=== PATIENT | female | born 1945 | race African-American/Black ===

== ENCOUNTER 2016-11-22 05:28 | Emergency (ER) | payer OTHER ==
[2016-11-22 05:53] VITALS: BMI 29.2
[2016-11-22 06:00] LABS: BASOPHIL 0.6 % (0-2.0); EOSINOPHIL 1.9 % (0-4.5); MCH 23.9 pg (25.7-33.7); MEAN CELL VOLUME 74.6 fl (80-96); MEAN PLT VOLUME 8.2 fl (7.5-11.1); NEUTROPHILS 70.9 % (42.8-82.8); PLATELET COUNT 246 K/MM3 (134-434); RDW 16.3 % (11.6-15.6); WHITE BLOOD COUNT 7.3 K/mm3 (4.0-10.0)
[2016-11-22 06:11] LABS: INR 1.63 (0.82-1.09); PROTHROMBIN TIME (PATIENT) 18.1 SEC (9.98-11.88)
[2016-11-22 06:25] LABS: ALBUMIN 3.4 g/dl (3.4-5.0); ANION GAP 7 (8-16); BILIRUBIN,TOTAL 0.4 mg/dL (0.2-1.0); CALCIUM 8.8 mg/dL (8.5-10.1); CO2 32 mmol/L (21-32); CREATININE 1.1 mg/dL (0.55-1.02); GLUCOSE,RANDOM 134 mg/dL (74-106); SGOT/AST 14 U/L (15-37); SGPT/ALT 15 U/L (12-78); TOT PROT 7.5 g/dl (6.4-8.2)
[2016-11-22 06:27] LABS: ALK PHOS 124 U/L (45-117); TROPONIN I < 0.02 ng/ml (0.00-0.05)
--- NOTE | 2016-11-22 08:22 | PDOC ---
History of Present Illness - General History Source: Patient Exam Limitations: No Limitations - History of Present Illness Initial Comments: 11/22/16 08:29 The patient is a 71 year old female, with a significant past medical history of Asthma, CVA (minimal R sided weakness), partial seizures, Atrial Fibrillation ( on Coumadin), CAD, HTN, HLD, Diabetes and Hypothyroidism, who presents to the emergency department BIB EMS with nonradiating, mid sternal chest pain earlier this morning. The patient states her chest pain (1/10 in severity) was associated with chest palpitations and slight nausea which lasted for a half hour until EMS arrived. As per EMS, the patient was given 324 mg of Aspirin and one Nitro on field with relief.The patient is currently asymptomatic in the ED. She denies headache or dizziness. She denies fever, chills, vomit, diarrhea or constipation. She denies dysuria, frequency, urgency or hematuria. Allergies: NKA Past surgical history: Cholecystectomy, appendectomy, tonsilectomy Social history: None PCP: Dr. Torres Negative Restorer: Dr. Higuera <Mily Pulliam - Last Filed: 11/22/16 09:14> <Dianna Elena - Last Filed: 11/22/16 12:14> - General Chief Complaint: Chest Pain Stated Complaint: CHEST PAIN Past History <Mily Pulliam - Last Filed: 11/22/16 09:14> - Past Medical History Anemia: Yes Asthma: Yes Cancer: No Cardiac Disorders: Yes (arrhythmia,cardiomegaly.) CVA: Yes COPD: No CHF: No Dementia: No Diabetes: Yes GI Disorders: No Disorders: No HTN: Yes Hypercholesterolemia: No Liver Disease: No Seizures: Yes Thyroid Disease: Yes - Surgical History Abdominal Surgery: No Appendectomy: Yes Cardiac Surgery: No Cholecystectomy: Yes Lung Surgery: No Neurologic Surgery: No Orthopedic Surgery: Yes (BACK SURGERY) - Immunization History Immunization Up to Date: Yes - Psycho/Social/Smoking Cessation Hx Anxiety: No Suicidal Ideation: No Smoking History: Never smoked Have you smoked in the past 12 months: No Information on smoking cessation initiated: No Hx Alcohol Use: No Drug/Substance Use Hx: No Substance Use Type: None Hx Substance Use Treatment: No <Dianna Elena - Last Filed: 11/22/16 12:14> - Past Medical History Allergies/Adverse Reactions: Allergies Allergy/AdvReac Type Severity Reaction Status Date / Time No Known Allergies Allergy Verified 11/22/16 05:50 Home Medications: Ambulatory Orders Isosorbide Mononitrate 60 mg PO DAILY 10/21/15 Omeprazole [Prilosec (RX)] 40 mg PO DAILY 10/21/15 Warfarin Sodium [Coumadin] 8 mg PO 2000 10/21/15 Amlodipine Besylate [Norvasc -] 5 mg PO DAILY tablet 10/23/15 Atorvastatin Ca [Lipitor] 20 mg PO HS tablet 10/23/15 Duloxetine HCl [Cymbalta -] 60 mg PO DAILY capsule. 10/23/15 Losartan Potassium [Cozaar -] 100 mg PO DAILY tablet 10/23/15 Lacosamide [Vimpat] 200 mg PO DAILY 02/07/16 Metformin HCl [Glucophage -] 500 mg PO BID 02/07/16 Metoprolol Tartrate [Lopressor -] 50 mg PO BID 02/07/16 Acetaminophen [Tylenol .Regular Strength -] 650 mg PO Q4H PRN #0 tablet Levetiracetam [Keppra -] 250 mg PO BID #60 tablet 02/11/16 Levothyroxine [Synthroid -] 50 mcg PO DAILY@0700 tablet 02/11/16 Magnesium Oxide [Mag-Ox -] 400 mg PO BID #60 tablet 02/11/16 Review of Systems - Review of Systems Able to Perform ROS?: Yes Comments:: 11/22/16 08:44 Constitutional - Pt denies Fever, Chills, weakness, HEENT: Denies vision changes, sore throat RESPIRATORY: Denies cough, sob, hemoptysis CARDIAC: + chest pain. Palpitations. Denies light headedness, leg swelling ABD/GI: Denies abd pain, nausea, vomiting, blood per rectum, melena, diarrhea : Denies dysuria, frequency, discharge MUSCULOSKELETAL - Denies back pain, joint swelling SKIN - Denies bruising, erythema, rash NEUROLOGICAL: Denies headache, numbness, focal weakness, tingling, ataxia, weakness HEMATOLOGIC: Denies anemia, easy bruising, easy bleeding <Mily Pulliam - Last Filed: 11/22/16 09:14> *Physical Exam - Vital Signs Last Vital Signs Temp Pulse Resp BP Pulse Ox 98.2 F 85 16 138/86 99 11/22/16 07:40 11/22/16 07:40 11/22/16 07:40 11/22/16 07:40 11/22/16 07:40 - Physical Exam Comments: 11/22/16 08:44 GENERAL: The patient is awake, alert, and fully oriented, Nontoxic - in no acute distress. HEAD: Normocephalic, atraumatic. EYES: Extraocular movements intact, sclera anicteric, conjunctiva clear. ENT: Normal voice, moist mucous membranes. NECK: Normal range of motion, supple without lymphadenopathy, JVD, or masses. LUNGS: Breath sounds equal, clear to auscultation bilaterally. No wheezes, no crackles, no rales. HEART: Regular rate and rhythm, normal S1 and S2 without murmur, rub or gallop. ABDOMEN: Soft, nontender, normoactive bowel sounds. No guarding, no rebound. No masses. EXTREMITIES: Normal range of motion, no edema. No clubbing or cyanosis. No cords , erythema, or tenderness. NEUROLOGICAL: Fully Oriented, Alert, Normal Mood/Affect, Motor Strength 5/5. No facial asymmetry, Normal speech. SKIN: Warm, Dry, normal turgor, no rashes or lesions noted. <Mily Pulliam - Last Filed: 11/22/16 09:14> - Vital Signs Last Vital Signs Temp Pulse Resp BP Pulse Ox 98.2 F 85 16 138/86 99 11/22/16 07:40 11/22/16 07:40 11/22/16 07:40 11/22/16 07:40 11/22/16 07:40 <Dianna Elena - Last Filed: 11/22/16 12:14> ED Treatment Course - LABORATORY CBC & Chemistry Diagram: 11/22/16 05:46 11/22/16 05:46 - ADDITIONAL ORDERS Additional order review: Laboratory Results 11/22/16 11/22/16 05:46 05:46 INR 1.63 H D Sodium 140 Potassium 3.7 Chloride 101 Carbon Dioxide 32 Anion Gap 7 L BUN 25 H Creatinine 1.1 H Creat Clearance w eGFR 48.69 Random Glucose 134 H Calcium 8.8 Total Bilirubin 0.4 AST 14 L ALT 15 Alkaline Phosphatase 124 H Creatine Kinase 81 Troponin I < 0.02 Total Protein 7.5 Albumin 3.4 11/22/16 05:46 RBC 4.14 MCV 74.6 L MCHC 32.0 RDW 16.3 H MPV 8.2 Neutrophils % 70.9 Lymphocytes % 20.1 D Monocytes % 6.5 Eosinophils % 1.9 Basophils % 0.6 <Mily Pulliam - Last Filed: 11/22/16 09:14> - LABORATORY CBC & Chemistry Diagram: 11/22/16 05:46 11/22/16 05:46 - ADDITIONAL ORDERS Additional order review: Laboratory Results 11/22/16 11/22/16 05:46 05:46 INR 1.63 H D Sodium 140 Potassium 3.7 Chloride 101 Carbon Dioxide 32 Anion Gap 7 L BUN 25 H Creatinine 1.1 H Creat Clearance w eGFR 48.69 Random Glucose 134 H Calcium 8.8 Total Bilirubin 0.4 AST 14 L ALT 15 Alkaline Phosphatase 124 H Creatine Kinase 81 Troponin I < 0.02 Total Protein 7.5 Albumin 3.4 11/22/16 05:46 RBC 4.14 MCV 74.6 L MCHC 32.0 RDW 16.3 H MPV 8.2 Neutrophils % 70.9 Lymphocytes % 20.1 D Monocytes % 6.5 Eosinophils % 1.9 Basophils % 0.6 <Dianna Elena - Last Filed: 11/22/16 12:14> Medical Decision Making - Medical Decision Making Dr. Higuera was paged via phone answering service at 09:00 Dr. Galvez is turf sales person and awaiting call back. 11/22/16 09:14- Dr. Galvez responded to the page and the patient's case was discussed. <Mily Pulliam - Last Filed: 11/22/16 09:14> - Medical Decision Making 11/22/16 12:11 I, Dr. Dianna Elena, attest that the scribes documentation that appears above has been prepared under my direction and personally reviewed by me. I confirmed that the note above accurately reflects all work, treatment, procedures, and medical decision-making performed by me. Pt with nl exam in ED, has no complaints of chest pain or palpations. Pt with two sets of negative cardiac enzymes in ED, case discussed with cardiology Dr Olvera, pt is stable for dc home with out pt f/u with pcp and with cardiology. Pt' s INR is sub therapeutic, will need counmadin dose adjusted. Pt took 4mg last night but is scheduled to take 6mg tonight and tomorrow and then f/u with pcp or with cardiology on thursday for further instructions. Pt agrees with this dc plan <Dianna Elena - Last Filed: 11/22/16 12:14> *DC/Admit/Observation/Transfer - Attestations Scribe Attestion: 11/22/16 08:44 Documentation prepared by Mily Pulliam, acting as medical apparatus model maker for Dianna Elena MD <Mily Pulliam - Last Filed: 11/22/16 09:14> - Discharge Dispostion Admit: No <Dianna Elena - Last Filed: 11/22/16 12:14> Diagnosis at time of Disposition: CAD (coronary artery disease) - Discharge Dispostion Disposition: HOME Condition at time of disposition: Stable - Referrals Referrals: Angeles Torres [Primary Care Provider] - - Patient Instructions Printed Discharge Instructions: DI for Chest Pain Additional Instructions: return to ed for chest pain associated with nausea and vomitting, trouble breathing, dizziness or as needed. Pt to f/u with PCP and with cardiology in next 48 hrs to have coumadin adjusted and to be reevaluated.
[2016-11-22 10:21] LABS: TROPONIN I < 0.02 ng/ml (0.00-0.05)
[2016-11-22 11:06] VITALS: PULSE 80
[2016-11-22 12:17] VITALS: BP 128/77; TEMP 98
--- NOTE | 2016-11-22 13:06 | PDOC ---
*Physical Exam - Vital Signs Last Vital Signs Temp Pulse Resp BP Pulse Ox 98.0 F 80 20 128/77 98 11/22/16 12:16 11/22/16 12:16 11/22/16 12:16 11/22/16 12:16 11/22/16 12:16 ED Treatment Course - LABORATORY CBC & Chemistry Diagram: 11/22/16 05:46 11/22/16 05:46 - ADDITIONAL ORDERS Additional order review: Laboratory Results 11/22/16 11/22/16 11/22/16 09:04 05:46 05:46 INR 1.63 H D Sodium 140 Potassium 3.7 Chloride 101 Carbon Dioxide 32 Anion Gap 7 L BUN 25 H Creatinine 1.1 H Creat Clearance w eGFR 48.69 Random Glucose 134 H Calcium 8.8 Total Bilirubin 0.4 AST 14 L ALT 15 Alkaline Phosphatase 124 H Creatine Kinase 96 81 Troponin I < 0.02 < 0.02 Total Protein 7.5 Albumin 3.4 TSH 1.70 D 11/22/16 05:46 RBC 4.14 MCV 74.6 L MCHC 32.0 RDW 16.3 H MPV 8.2 Neutrophils % 70.9 Lymphocytes % 20.1 D Monocytes % 6.5 Eosinophils % 1.9 Basophils % 0.6 Medical Decision Making - Medical Decision Making 11/22/16 13:05 ekg is afib at 84 nl axis poor r wave progression. *DC/Admit/Observation/Transfer Diagnosis at time of Disposition: CAD (coronary artery disease) - Discharge Dispostion Disposition: HOME Condition at time of disposition: Stable - Referrals Referrals: Angeles Torres [Primary Care Provider] - - Patient Instructions Printed Discharge Instructions: DI for Chest Pain Additional Instructions: return to ed for chest pain associated with nausea and vomitting, trouble breathing, dizziness or as needed. Pt to f/u with PCP and with cardiology in next 48 hrs to have coumadin adjusted and to be reevaluated. - Post Discharge Activity
--- NOTE | 2016-11-22 21:03 | EKG ---
Test Reason : Blood Pressure : / mmHG Vent. Rate : 084 BPM Atrial Rate : 394 BPM P-R Int : 000 ms QRS Dur : 096 ms QT Int : 378 ms P-R-T Axes : 000 -14 059 degrees QTc Int : 446 ms ATRIAL FIBRILLATION POSSIBLE ANTEROSEPTAL INFARCT (CITED ON OR BEFORE 22-NOV-2016) ABNORMAL ECG WHEN COMPARED WITH ECG OF 08-FEB-2016 04:19, QUESTIONABLE CHANGE IN INITIAL FORCES OF ANTERIOR LEADS NONSPECIFIC T WAVE ABNORMALITY, IMPROVED IN INFERIOR LEADS Confirmed by SVETLANA TOUSSAINT MD ([id number]) on 11/22/2016 9:03:09 PM Referred By: Confirmed By:SVETLANA TOUSSAINT MD
== END 2016-11-22 12:17 | disposition home or self-care (01) ==
LOC: JER 05:28
DX: I25.10 Atherosclerotic heart disease of native coronary artery without angina pectoris (principal); I10 Essential (primary) hypertension; I48.91 Unspecified atrial fibrillation; Z79.01 Long term (current) use of anticoagulants; E11.9 Type 2 diabetes mellitus without complications; Z79.84 Long term (current) use of oral hypoglycemic drugs; E78.00 Pure hypercholesterolemia, unspecified; E78.5 Hyperlipidemia, unspecified; E03.9 Hypothyroidism, unspecified; G40.89 Other seizures; J45.909 Unspecified asthma, uncomplicated; Z86.73 Personal history of transient ischemic attack (TIA), and cerebral infarction without residual deficits
CPT/HCPCS: 36415; 71010-TC; 80053; 82550; 84443; 84484; 85025; 85610; 93005; 93010; 99283-25

== ENCOUNTER 2016-12-11 09:32 | Inpatient (IN) | payer OTHER ==
[2016-12-11 09:46] VITALS: BMI 31.7
--- NOTE | 2016-12-11 10:50 | PDOC ---
History of Present Illness - General Chief Complaint: Chest Pain Stated Complaint: Palpitations Time Seen by Provider: 12/11/16 09:43 History Source: Patient Exam Limitations: No Limitations - History of Present Illness Initial Comments: 12/11/16 10:19 71-year-old female with history of A. fib under the care of Dr. higuera presents to the ED with complaints of intermittent palpitations for the past week and a half. Patient states last night felt that around 3 AM for continued for about an hour so this morning decided come to the ER. Patient states was seen by her inside sales last week who stated she should have a Holter placed but did not have the opportunity as of yet. Patient denies chest pain, shortness of breath, dizziness, nausea, recent change in her Lopressor or her Coumadin. Patient states has been the same medication and denies any recent illness, recent antibiotic use, increased lower extremity edema, or dizziness, or headache. Presenting Symptoms: Other (alpitations) Timing/Duration: reports: intermittent Severity/Quality: reports: mild Prior Chest Pain/Cardiac Workup: reports: Echocardiography, Stress Test Aspirin Received prior to arrival (Core Measure): Yes: no aspirin today Associated Symptoms: Yes: Palpitations Past History - Past Medical History Allergies/Adverse Reactions: Allergies Allergy/AdvReac Type Severity Reaction Status Date / Time No Known Allergies Allergy Verified 12/11/16 09:46 Home Medications: Ambulatory Orders Amlodipine Besylate [Norvasc -] 5 mg PO DAILY 12/11/16 Atorvastatin Ca [Lipitor] 20 mg PO HS 12/11/16 Duloxetine HCl 60 mg PO DAILY 12/11/16 Isosorbide Mononitrate [Isosorbide Mononitrate ER] 60 mg PO DAILY 12/11/16 Lacosamide [Vimpat -] 100 mg PO DAILY 12/11/16 Levetiracetam 750 mg PO HS 12/11/16 Levothyroxine [Synthroid -] 50 mcg PO DAILY 12/11/16 Losartan Potassium 50 mg PO DAILY 12/11/16 Magnesium Oxide 400 mg PO HS 12/11/16 Metformin HCl 500 mg PO BID 12/11/16 Metoprolol Succinate [Toprol Xl] 50 mg PO HS 12/11/16 Omeprazole 40 mg PO DAILY 12/11/16 Sitagliptin Phosphate [Januvia] 25 mg PO HS 12/11/16 Warfarin Na [Coumadin] 4 mg PO DAILY 12/11/16 Warfarin Na [Coumadin] 6 mg PO DAILY 12/11/16 Anemia: Yes Asthma: Yes Cancer: No Cardiac Disorders: Yes (arrhythmia,cardiomegaly.) CVA: Yes COPD: No CHF: No Dementia: No Diabetes: Yes GI Disorders: No Disorders: No HTN: Yes Hypercholesterolemia: No Liver Disease: No Seizures: Yes Thyroid Disease: Yes - Surgical History Abdominal Surgery: No Appendectomy: Yes Cardiac Surgery: No Cholecystectomy: Yes Lung Surgery: No Neurologic Surgery: No Orthopedic Surgery: Yes (BACK SURGERY) - Immunization History Immunization Up to Date: Yes - Psycho/Social/Smoking Cessation Hx Anxiety: No Suicidal Ideation: No Smoking History: Never smoked Have you smoked in the past 12 months: No Information on smoking cessation initiated: No Hx Alcohol Use: No Drug/Substance Use Hx: No Substance Use Type: None Hx Substance Use Treatment: No Patient Lives Alone: No Lives with/in: spouse/SO Cardiac Specific PMH - Complaint Specific PMHX Pacemaker: No Review of Systems - Review of Systems Able to Perform ROS?: Yes Constitutional: No: Symptoms Reported HEENTM: No: Symptoms Reported Respiratory: No: Symptoms reported Cardiac (ROS): Yes: Palpitations ABD/GI: No: Symptoms Reported : No: Symptoms Reported Musculoskeletal: No: Symptoms Reported Integumentary: No: Symptoms Reported *Physical Exam - Vital Signs Last Vital Signs Temp Pulse Resp BP Pulse Ox 99 F 80 18 142/85 99 12/11/16 09:37 12/11/16 11:09 12/11/16 09:37 12/11/16 09:37 12/11/16 11:09 - Physical Exam General Appearance: Yes: Nourished, Appropriately Dressed. No: Apparent Distress HEENT: negative: Pale Conjunctivae Neck: positive: Supple Respiratory/Chest: positive: Lungs Clear, Normal Breath Sounds. negative: Respiratory Distress, Accessory Muscle Use Cardiovascular: positive: Regular Rhythm, Regular Rate. negative: Murmur Vascular Pulses: Dorsalis-Pedis (R): 2+, Doralis-Pedis (L): 2+ Gastrointestinal/Abdominal: positive: Soft. negative: Tenderness Extremity: positive: Pedal Edema (1+ pitting) Integumentary: positive: Normal Color, Warm, Moist Neurologic: positive: Motor Strength 5/5 (ambulatory) Heart Score/ECG Review - History History: Slightly suspicious - Electrocardiogram EKG: Normal - Age Age: >/= 65 - Risk Factors Risk Factors Heart Score: Yes Hx Hypertension Based on the list above the patient has:: 1-2 risk factors - Troponin Troponin: </= normal limit - Score Heart Score - Total: 3 - ECG Intrepretation Rhythm: Regular Rhythm (rate 80. No St elevation or depression. A. fib) - ECG Impressions Normal ECG: Yes ED Treatment Course - LABORATORY CBC & Chemistry Diagram: 12/11/16 10:30 12/11/16 10:30 - ADDITIONAL ORDERS Additional order review: Laboratory Results 12/11/16 12/11/16 10:30 10:30 INR 2.46 H D Sodium 138 Potassium 3.7 Chloride 97 L Carbon Dioxide 34 H Anion Gap 7 L BUN 20 H Creatinine 0.9 Creat Clearance w eGFR > 60 Random Glucose 176 H D Calcium 9.3 Total Bilirubin 0.4 AST 14 L ALT 16 Alkaline Phosphatase 113 Creatine Kinase 78 Troponin I < 0.02 Total Protein 7.5 Albumin 3.4 12/11/16 10:30 RBC 4.22 MCV 74.7 L MCHC 31.3 L RDW 16.1 H MPV 8.0 Neutrophils % 75.4 Lymphocytes % 17.4 Monocytes % 5.5 Eosinophils % 1.2 Basophils % 0.5 - RADIOLOGY Radiology Studies Ordered: Category Date Time Status CHEST X-RAY PORTABLE* [RAD] Stat Radiology 12/11/16 10:16 Completed Medical Decision Making - Medical Decision Making 12/11/16 10:32 Patient with history of A. fib presents to the ED with complaints of palpitations intimately for the past week and a half which she saw her inside sales for and is due to have a Holter. Patient denies chest pain, dizziness, shortness of breath, or nausea. 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 fib at a rate of 72-90. Patient placed for cardiac workup, PT INR levels since she is on Coumadin, and will consult Dr. Higuera her inside sales shortly. 12/11/16 12:00 Chest x-ray negative. Case discussed with Dr. Jones and accepted to service. Discussed with Dr. Higuera, patient's inside sales and recommended to admit patient to telemetry and keep patient on pulse oximetry as he believes this may be related to sleep apnea versus cardiac etiology. 12/11/16 13:06 Laboratory Tests 12/11/16 12/11/16 12/11/16 10:30 10:30 10:30 WBC 7.3 Hgb 9.9 L Hct 31.5 L Neutrophils % 75.4 INR 2.46 H D Sodium 138 Potassium 3.7 Chloride 97 L Carbon Dioxide 34 H Anion Gap 7 L BUN 20 H Creatinine 0.9 Creat Clearance w eGFR > 60 Random Glucose 176 H D Calcium 9.3 Total Bilirubin 0.4 AST 14 L Alkaline Phosphatase 113 Troponin I < 0.02 *DC/Admit/Observation/Transfer Diagnosis at time of Disposition: Palpitations - Discharge Dispostion Admit: Yes
[2016-12-11 10:58] LABS: BASOPHIL 0.5 % (0-2.0); EOSINOPHIL 1.2 % (0-4.5); MCH 23.4 pg (25.7-33.7); MCHC 31.3 g/dl (32.0-36.0); MEAN CELL VOLUME 74.7 fl (80-96); NEUTROPHILS 75.4 % (42.8-82.8); PLATELET COUNT 239 K/MM3 (134-434); RDW 16.1 % (11.6-15.6); WHITE BLOOD COUNT 7.3 K/mm3 (4.0-10.0)
[2016-12-11 11:19] LABS: INR 2.46 (0.82-1.09); PROTHROMBIN TIME (PATIENT) 27.6 SEC (9.98-11.88)
[2016-12-11 11:20] LABS: ALBUMIN 3.4 g/dl (3.4-5.0); ANION GAP 7 (8-16); BILIRUBIN,TOTAL 0.4 mg/dL (0.2-1.0); CALCIUM 9.3 mg/dL (8.5-10.1); CO2 34 mmol/L (21-32); CREATININE 0.9 mg/dL (0.55-1.02); GLUCOSE,RANDOM 176 mg/dL (74-106); SGOT/AST 14 U/L (15-37); SGPT/ALT 16 U/L (12-78); TOT PROT 7.5 g/dl (6.4-8.2)
[2016-12-11 11:22] LABS: ALK PHOS 113 U/L (45-117); TROPONIN I < 0.02 ng/ml (0.00-0.05)
--- NOTE | 2016-12-11 11:36 | EKG ---
Test Reason : Blood Pressure : / mmHG Vent. Rate : 080 BPM Atrial Rate : 081 BPM P-R Int : 000 ms QRS Dur : 098 ms QT Int : 410 ms P-R-T Axes : 000 -14 050 degrees QTc Int : 472 ms POOR DATA QUALITY, INTERPRETATION MAY BE ADVERSELY AFFECTED ATRIAL FIBRILLATION POSSIBLE ANTEROSEPTAL INFARCT (CITED ON OR BEFORE 22-NOV-2016) ABNORMAL ECG WHEN COMPARED WITH ECG OF 22-NOV-2016 05:44, NONSPECIFIC T WAVE ABNORMALITY, WORSE IN INFERIOR LEADS Confirmed by FABIAN MACK, MAXI ([id number]) on 12/11/2016 11:36:29 AM Referred By: Confirmed By:MAXI PERALTA MD
[2016-12-11] MEDS ORDERED: PNEUMOC 13-VAL CONJ-DIP CRM/PF 0.5 ML DISP.SYRIN IM ONE (14:53)
--- NOTE | 2016-12-11 14:57 | CON.CARD ---
Consult Consult Specialty:: Cardiology Reason for Consultation:: Palpitations - History of Present Illness History of Present Illness: 71-year-old female with history of permanent A. fib on Coumadin per INR ( developed stroke on [place]), HTN, ASHD, angina pectoris, type 2 DM, hypercholesterolemia, partial complex seizures, hypothyroidism and previous history of stroke resulting in right sided weakness presented to the ED with complaints of intermittent palpitations for the past week and a half. Patient states last night felt that around 3 AM for continued for about an hour so this morning decided come to the ER. Patient denies chest pain, shortness of breath, near or true syncope, orthopnea, PND or LE edema. 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: CVA (with mild right sided residual deficits), Seizure (partial complex seizures), TIA Cardio/Vascular: Yes: AFIB, CAD, HTN, Hyperlipdemia Pulmonary: Yes: Asthma ...: No Endocrine: Yes: Diabetes Mellitus, Hypothyroidism - Past Surgical History Past Surgical History: Yes: Appendectomy - Alcohol/Substance Use Hx Alcohol Use: No - Smoking History Smoking history: Never smoked Have you smoked in the past 12 months: No Home Medications - Allergies Allergies/Adverse Reactions: Allergies Allergy/AdvReac Type Severity Reaction Status Date / Time No Known Allergies Allergy Verified 12/11/16 09:46 - Home Medications Home Medications: Ambulatory Orders Amlodipine Besylate [Norvasc -] 5 mg PO DAILY 12/11/16 Atorvastatin Ca [Lipitor] 20 mg PO HS 12/11/16 Duloxetine HCl 60 mg PO DAILY 12/11/16 Isosorbide Mononitrate [Isosorbide Mononitrate ER] 60 mg PO DAILY 12/11/16 Lacosamide [Vimpat -] 100 mg PO DAILY 12/11/16 Levetiracetam 750 mg PO HS 12/11/16 Levothyroxine [Synthroid -] 50 mcg PO DAILY 12/11/16 Losartan Potassium 50 mg PO DAILY 12/11/16 Magnesium Oxide 400 mg PO HS 12/11/16 Metformin HCl 500 mg PO BID 12/11/16 Metoprolol Succinate [Toprol Xl] 50 mg PO HS 12/11/16 Omeprazole 40 mg PO DAILY 12/11/16 Sitagliptin Phosphate [Januvia] 25 mg PO HS 12/11/16 Warfarin Na [Coumadin] 4 mg PO DAILY 12/11/16 Warfarin Na [Coumadin] 6 mg PO DAILY 12/11/16 Family Disease History - Family Disease History Family Disease History: Other: Father (Lung Ca, Was a smoker), Mother (Colon Ca) Vital Signs: Vital Signs Temperature 98.2 F 12/11/16 14:56 Pulse Rate 80 12/11/16 14:56 Respiratory Rate 20 12/11/16 14:56 Blood Pressure 131/84 12/11/16 14:56 O2 Sat by Pulse Oximetry (%) 98 12/11/16 14:37 Constitutional: Yes: No Distress, Calm Neck: Yes: Supple Respiratory: Yes: Regular, CTA Bilaterally Gastrointestinal: Yes: Normal Bowel Sounds, Soft Cardiovascular: Yes: Pulse Irregular JVD: No Carotid Bruit: No Heart Sounds: Yes: S1, S2 Edema: No - Other Data Labs, Other Data: INR, PTT INR 2.46 (0.82-1.09) H D 12/11/16 10:30 Coarse afib @ 80 Ejection Fraction %: LVEF > or = 40 % Imaging - Results Chest X-ray: Report Reviewed (NAD) Problem List - Problems (1) Heart palpitations Code(s): R00.2 - PALPITATIONS (2) ASHD (arteriosclerotic heart disease) Code(s): I25.10 - ATHSCL HEART DISEASE OF [place] CORONARY ARTERY W/O ANG PCTRS (3) Atrial fibrillation Code(s): I48.91 - UNSPECIFIED ATRIAL FIBRILLATION Qualifiers: Atrial fibrillation type: persistent Qualified Code(s): I48.1 - Persistent atrial fibrillation (4) CAD (coronary artery disease) Code(s): I25.10 - ATHSCL HEART DISEASE OF [place] CORONARY ARTERY W/O ANG PCTRS Qualifiers: Coronary Disease-Associated Artery/Lesion type: [place] artery [place] vs. transplanted heart: [place] heart Associated angina: without angina Qualified Code(s): I25.10 - Atherosclerotic heart disease of [place] coronary artery without angina pectoris (5) Cerebrovascular accident Code(s): I63.9 - CEREBRAL INFARCTION, UNSPECIFIED (6) Diabetes mellitus Code(s): E11.9 - TYPE 2 DIABETES MELLITUS WITHOUT COMPLICATIONS Qualifiers: Diabetes mellitus type: type 2 Diabetes mellitus complication status: without complication Diabetes mellitus buttermaker helper insulin use: without buttermaker helper use Qualified Code(s): E11.9 - Type 2 diabetes mellitus without complications (7) HTN (hypertension) Code(s): I10 - ESSENTIAL (PRIMARY) HYPERTENSION Qualifiers: Hypertension type: essential hypertension Qualified Code(s): I10 - Essential (primary) hypertension (8) Hyperlipidemia associated with type 2 diabetes mellitus Code(s): E11.69 - TYPE 2 DIABETES MELLITUS WITH OTHER SPECIFIED COMPLICATION E78.5 - HYPERLIPIDEMIA, UNSPECIFIED (9) Hypothyroid Code(s): E03.9 - HYPOTHYROIDISM, UNSPECIFIED Qualifiers: Hypothyroidism type: unspecified Qualified Code(s): E03.9 - Hypothyroidism, unspecified Assessment/Plan 1. Palpitations with underlying 2. Permanent AF with possible RVR [id number] score of 7, therapeutic INR 3. History of CVA/stroke probably embolic due to AF 4. ASHD, angina pectoris 5. HTN 6. Hypercholesterolemia 7. Type 2 DM 8. Partial complex seizure 9. Hypothyroidism 10. Anemia PLAN: 1. On telemetry monitoring to assess adequacy of rate-control 2. Continue Coumadin per INR 2.0 - 3.0. 3. Increase Metoprolol 50 bid, Cozaar 100 qd, Norvasc 5 qd, Lipitor 20 qhs, and Imdur 60 qd 4. Thank you for consultative opportunity
[2016-12-11 17:54] LABS: URINE APPEARANCE CLEAR; URINE BILIRUBIN NEGATIVE (NEGATIVE); URINE BLOOD NEGATIVE (NEGATIVE); URINE COLOR LT. YELLOW; URINE GLUCOSE (UA) NEGATIVE (NEGATIVE); URINE KETONE NEGATIVE (NEGATIVE); URINE LEUK ESTERASE NEGATIVE (NEGATIVE); URINE NITRITE NEGATIVE (NEGATIVE); URINE PROTEIN TRACE (NEGATIVE); URINE UROBILINOGEN 0.2 E.U/dl E.U./dl (0.2-1.0)
[2016-12-11] MEDS ORDERED: WARFARIN NA 3 MG TABLET PO ONE (18:00)
[2016-12-11] MEDS ORDERED: WARFARIN NA 2 MG TABLET (UD) PO ONE (18:00)
[2016-12-11] MEDS: METOPROLOL TARTRATE 50 MG TABLET (FP) PO SCH (21:17)
[2016-12-11] MEDS ORDERED: sitaGLIPtin PHOSPHATE 25 MG TABLET (FP) PO SCH (22:00)
[2016-12-11] MEDS ORDERED: levETIRAcetam 250 MG TABLET (FP) PO SCH (22:00)
[2016-12-11] MEDS ORDERED: ATORVASTATIN CA 20 MG TABLET (FP) PO SCH (22:00)
[2016-12-11] MEDS ORDERED: HEPARIN NA (PORCINE) 5,000 UNITS/ML 1ML VIAL SQ SCH (22:00)
[2016-12-11] MEDS ORDERED: MAGNESIUM OXIDE 400 MG TABLET (FP) PO SCH (22:00)
[2016-12-12] MEDS ORDERED: LEVOTHYROXINE NA 50 MCG TABLET (FP) PO SCH (07:00)
[2016-12-12] MEDS ORDERED: metFORMIN HCL 500 MG TABLET (FP) PO SCH (07:00)
[2016-12-12 07:56] LABS: BASOPHIL 0.6 % (0-2.0); EOSINOPHIL 2.1 % (0-4.5); MCH 23.8 pg (25.7-33.7); MCHC 31.9 g/dl (32.0-36.0); MEAN CELL VOLUME 74.5 fl (80-96); MEAN PLT VOLUME 8.6 fl (7.5-11.1); NEUTROPHILS 66.8 % (42.8-82.8); PLATELET COUNT 221 K/MM3 (134-434); RDW 16.1 % (11.6-15.6); WHITE BLOOD COUNT 7.1 K/mm3 (4.0-10.0)
[2016-12-12 08:50] LABS: ALBUMIN 3.2 g/dl (3.4-5.0); ANION GAP 6 (8-16); CALCIUM 9.3 mg/dL (8.5-10.1); CO2 36 mmol/L (21-32); GLUCOSE,RANDOM 150 mg/dL (74-106)
[2016-12-12 08:53] LABS: ALK PHOS 110 U/L (45-117); BILIRUBIN,TOTAL 0.5 mg/dL (0.2-1.0); CHOLESTEROL 204 mg/dL (50-200); LDL CHOLESTEROL (ONLY SJRH) 106 mg/dL (5-100); SGOT/AST 15 U/L (15-37); SGPT/ALT 13 U/L (12-78); TOT PROT 6.9 g/dl (6.4-8.2); TROPONIN I < 0.02 ng/ml (0.00-0.05)
[2016-12-12] MEDS: METOPROLOL TARTRATE 50 MG TABLET (FP) PO SCH (09:56)
[2016-12-12] MEDS ORDERED: LACOSAMIDE 50 MG TABLET PO SCH (10:00)
[2016-12-12] MEDS ORDERED: DULoxetine HCL 30 MG CAPSULE.DR (FP) PO SCH (10:00)
[2016-12-12] MEDS ORDERED: PANTOPRAZOLE 40 MG TABLET (FP) PO SCH (10:00)
[2016-12-12] MEDS ORDERED: ISOSORBIDE MONONITRATE 60 MG TAB.SR.24H (FP) PO SCH (10:00)
[2016-12-12] MEDS ORDERED: WARFARIN NA 1 MG TABLET (FP) PO SCH ×2 (10:00)
[2016-12-12] MEDS ORDERED: amLODIPine BESYLATE 5 MG TABLET (FP) PO SCH (10:00)
[2016-12-12] MEDS ORDERED: LOSARTAN POTASSIUM 50 MG TABLET (FP) PO SCH (10:00)
[2016-12-12 12:27] LABS: TROPONIN I < 0.02 ng/ml (0.00-0.05)
--- NOTE | 2016-12-12 12:45 | HP ---
Admitting History and Physical - Primary Care Physician PCP: Ben Jones - Admission Chief Complaint: palpiations History of Present Illness: 71-year-old female with history of A. fib under the care of Dr. manzano presents to the ED with complaints of intermittent palpitations for the past week and a half. Patient states last night felt that around 3 AM for continued for about an hour so this morning decided come to the ER. Patient states was seen by her founder and chief executive officer last week who stated she should have a Holter placed but did not have the opportunity as of yet. Patient denies chest pain, shortness of breath, dizziness, nausea, recent change in her Lopressor or her Coumadin. Patient states has been the same medication and denies any recent illness, recent antibiotic use, increased lower extremity edema, or dizziness, or headache. 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), Seizure (partial complex seizures), TIA Cardiovascular: Yes: AFIB, CAD, HTN, Hyperlipdemia Pulmonary: Yes: Asthma Gastrointestinal: Yes: Other ...: No Heme/Onc: Yes: Anemia Endocrine: Yes: Diabetes Mellitus, Hypothyroidism - Past Surgical History Past Surgical History: Yes: Appendectomy - Advance Directives Advance Directives: Yes: Health Care Proxy - Smoking History Smoking history: Never smoked Have you smoked in the past 12 months: No - Alcohol/Substance Use Hx Alcohol Use: No Home Medications - Allergies Allergies/Adverse Reactions: Allergies Allergy/AdvReac Type Severity Reaction Status Date / Time No Known Allergies Allergy Verified 12/11/16 09:46 - Home Medications Home Medications: Ambulatory Orders Amlodipine Besylate [Norvasc -] 5 mg PO DAILY 12/11/16 Atorvastatin Ca [Lipitor] 20 mg PO HS 12/11/16 Duloxetine HCl 60 mg PO DAILY 12/11/16 Isosorbide Mononitrate [Isosorbide Mononitrate ER] 60 mg PO DAILY 12/11/16 Lacosamide [Vimpat -] 100 mg PO DAILY 12/11/16 Levetiracetam 750 mg PO HS 12/11/16 Levothyroxine [Synthroid -] 50 mcg PO DAILY 12/11/16 Losartan Potassium 50 mg PO DAILY 12/11/16 Magnesium Oxide 400 mg PO HS 12/11/16 Metformin HCl 500 mg PO BID 12/11/16 Metoprolol Succinate [Toprol Xl] 50 mg PO HS 12/11/16 Omeprazole 40 mg PO DAILY 12/11/16 Sitagliptin Phosphate [Januvia] 25 mg PO HS 12/11/16 Warfarin Na [Coumadin] 4 mg PO DAILY 12/11/16 Warfarin Na [Coumadin] 6 mg PO DAILY 12/11/16 Family Disease History - Family Disease History Family Disease History: Other: Father (Lung Ca, Was a smoker), Mother (Colon Ca) Review of Systems - Review of Systems Constitutional: reports: No Symptoms Eyes: reports: No Symptoms HENT: reports: No Symptoms Neck: reports: No Symptoms Cardiovascular: reports: Palpitations Respiratory: reports: SOB Gastrointestinal: reports: No Symptoms Genitourinary: reports: No Symptoms Musculoskeletal: reports: No Symptoms Integumentary: reports: No Symptoms Neurological: reports: No Symptoms Endocrine: reports: No Symptoms Hematology/Lymphatic: reports: No Symptoms Psychiatric: reports: No Symptoms Physical Examination Vital Signs: Vital Signs Temperature 98.0 F 12/12/16 10:00 Pulse Rate 87 12/12/16 10:00 Respiratory Rate 18 12/12/16 10:00 Blood Pressure 136/77 12/12/16 10:00 O2 Sat by Pulse Oximetry (%) 97 12/12/16 09:00 Constitutional: Yes: Mild Distress Eyes: Yes: WNL HENT: Yes: WNL Neck: Yes: WNL Cardiovascular: Yes: Pulse Irregular, Other Respiratory: Yes: WNL Gastrointestinal: Yes: WNL Renal/: Yes: WNL Musculoskeletal: Yes: WNL Extremities: Yes: WNL Edema: No Peripheral Pulses WNL: Yes Integumentary: Yes: WNL Wound/Incision: Yes: Clean/Dry Neurological: Yes: WNL ...Motor Strength: WNL Psychiatric: Yes: WNL Labs: CBC, BMP 12/12/16 05:35 12/12/16 05:35 Imaging - Results Chest X-ray: Report Reviewed Problem List - Problems (1) Heart palpitations Code(s): R00.2 - PALPITATIONS (2) Anemia Code(s): D64.9 - ANEMIA, UNSPECIFIED (3) Asthma Code(s): J45.909 - UNSPECIFIED ASTHMA, UNCOMPLICATED (4) Atrial fibrillation Code(s): I48.91 - UNSPECIFIED ATRIAL FIBRILLATION Qualifiers: Atrial fibrillation type: persistent Qualified Code(s): I48.1 - Persistent atrial fibrillation Assessment/Plan OBSERVATION STATUS CARDIOLOGY WORKUP LIPIDS AVOID CAFFEINE RATE CONTROL
--- NOTE | 2016-12-12 12:52 | DS ---
Physical Examination Vital Signs: Vital Signs Temperature 98.0 F 12/12/16 10:00 Pulse Rate 87 12/12/16 10:00 Respiratory Rate 18 12/12/16 10:00 Blood Pressure 136/77 12/12/16 10:00 O2 Sat by Pulse Oximetry (%) 97 12/12/16 09:00 Constitutional: Yes: Well Nourished Eyes: Yes: WNL HENT: Yes: WNL Neck: Yes: WNL Cardiovascular: Yes: Pulse Irregular Respiratory: Yes: WNL Gastrointestinal: Yes: WNL Renal/: Yes: WNL Musculoskeletal: Yes: WNL Extremities: Yes: WNL Edema: No Peripheral Pulses WNL: Yes Integumentary: Yes: WNL Wound/Incision: Yes: Clean/Dry Neurological: Yes: WNL ...Motor Strength: WNL Psychiatric: Yes: WNL Labs: CBC, BMP 12/12/16 05:35 12/12/16 05:35 Discharge Summary Reason For Visit: HEART PALPITATIONS Current Active Problems Heart palpitations (Acute) Premature ventricular contraction (Acute) Procedures: Principal: TELEEMTRY Other Procedures: OBSERVATION Hospital Course: ADMITTED FOR OBSERVATION STATUS/NO SIGNIFICANT ALARMS, DC HOME F/.U OUT PATIENT WITH CARDIOLOGY - Instructions Diet, Activity, Other Instructions: ADA LOW SODIUM Referrals: Angeles Torres [Primary Care Provider] - Disposition: HOME - Home Medications Comprehensive Discharge Medication List: Ambulatory Orders Amlodipine Besylate [Norvasc -] 5 mg PO DAILY 12/11/16 Atorvastatin Ca [Lipitor] 20 mg PO HS 12/11/16 Duloxetine HCl 60 mg PO DAILY 12/11/16 Isosorbide Mononitrate [Isosorbide Mononitrate ER] 60 mg PO DAILY 12/11/16 Lacosamide [Vimpat -] 100 mg PO DAILY 12/11/16 Levetiracetam 750 mg PO HS 12/11/16 Levothyroxine [Synthroid -] 50 mcg PO DAILY 12/11/16 Losartan Potassium 50 mg PO DAILY 12/11/16 Magnesium Oxide 400 mg PO HS 12/11/16 Metformin HCl 500 mg PO BID 12/11/16 Metoprolol Succinate [Toprol Xl] 50 mg PO HS 12/11/16 Omeprazole 40 mg PO DAILY 12/11/16 Sitagliptin Phosphate [Januvia] 25 mg PO HS 12/11/16 Warfarin Na [Coumadin -] 4 mg PO DAILY 12/11/16 Warfarin Na [Coumadin -] 6 mg PO DAILY 12/11/16 Losartan Potassium [Cozaar -] 100 mg PO DAILY tablet 12/12/16
[2016-12-12 13:47] VITALS: BP 127/64; PULSE 82; TEMP 98.1
[2016-12-12] MEDS ORDERED: WARFARIN NA 2 MG TABLET (UD) PO SCH (18:00)
[2016-12-12] MEDS ORDERED: METOPROLOL TARTRATE 50 MG TABLET (FP) PO SCH (22:00)
[2016-12-13] MEDS ORDERED: METOPROLOL TARTRATE 50 MG TABLET (FP) PO SCH (10:00)
[2016-12-16] MEDS ORDERED: WARFARIN NA 3 MG TABLET PO SCH (18:00)
== END 2016-12-12 13:54 | disposition home or self-care (01) | DRG 309 ==
LOC: JER 09:32 → JERBED 13:11 → J4S 14:46 → OBSVTOIN 19:02
PROVIDERS: ADMIT Family Medicine; ATTEND Family Medicine
DX: I48.1 Persistent atrial fibrillation (principal); I69.351 Hemiplegia and hemiparesis following cerebral infarction affecting right dominant side; G40.209 Localization-related (focal) (partial) symptomatic epilepsy and epileptic syndromes with complex partial seizures, not intractable, without status epilepticus; Z79.01 Long term (current) use of anticoagulants; I25.119 Atherosclerotic heart disease of native coronary artery with unspecified angina pectoris; E78.00 Pure hypercholesterolemia, unspecified; E03.9 Hypothyroidism, unspecified; E11.9 Type 2 diabetes mellitus without complications; I49.3 Ventricular premature depolarization; R00.2 Palpitations; Z79.84 Long term (current) use of oral hypoglycemic drugs
CPT/HCPCS: 36415; 71010-TC; 80053; 80061; 81003; 82550; 83721; 84484; 85025; 85610; 93005; 93010; 99285-25; G0378

== ENCOUNTER 2017-06-09 16:20 | Inpatient (IN) | payer OTHER ==
--- NOTE | 2017-06-09 17:16 | PDOC ---
History of Present Illness - General History Source: Patient Exam Limitations: No Limitations - History of Present Illness Initial Comments: 06/09/17 17:33 The patient is a 71 year old female, with a significant past medical history of Asthma, CVA (minimal R sided weakness), partial seizures, Atrial Fibrillation ( on Coumadin), CAD, HTN, HLD, Diabetes and Hypothyroidism, who presents to the emergency department for abnormal CT findings. Patient states that she hit her head 2 weeks ago while fixing a folding chair and denies hitting her head again since then. She reports parietal head pain and blurry vision but denies any double vision or speech disturbance. She denies any new weakness she just reports her baseline right sided residual weakness after the stroke. No nausea or vomiting. Allergies: NKA Past surgical history: Cholecystectomy, appendectomy, tonsillectomy Social history: None PCP: Dr. Torres Proof Press Operator: Dr. Higuera Oncologist: Dr. Arriaga <Guadalupe Hull - Last Filed: 06/09/17 18:52> <Bobby Waller - Last Filed: 06/09/17 18:55> - General Chief Complaint: Revisit,Radiology Variance Stated Complaint: HEAD INJURY Time Seen by Provider: 06/09/17 16:29 NIH Stroke Scale - Initial Evaluation Level of consciousness: Alert Ask patient the month and their age: Answers both correctly Ask patient to open & close eyes; make fist and let go: Obeys both correctly Best gaze (horizontal eye movement): Normal Visual field testing: No visual field loss Facial paresis (Show teeth/raise eyebrows/close eyes tight): Normal symmetrical movement Motor Function: Left Arm: Drift Motor Function: Right Arm: Normal (extends arm 90 (or 45) degrees for 10 seconds without drift Motor Function: Left Leg: Drift Motor Function: Right Leg: Normal (extends leg 30 degrees for 5 seconds without drift) Limb Ataxia: No ataxia Sensory(Use pinprick test arms,legs,trunk,face/side to side): Normal Best language (Describe picture, name items, read sentences): No Aphasia Dysarthria (read several words): Normal articulation Extinction and Inattention: No abnormality - Total Score NIH Stroke Scale Score: 2 <Bobby Waller - Last Filed: 06/09/17 18:55> Past History <Guadalupe Hull - Last Filed: 06/09/17 18:52> - Past Medical History Anemia: Yes Asthma: Yes Cancer: No Cardiac Disorders: Yes (arrhythmia,cardiomegaly.) CVA: Yes COPD: No CHF: No Dementia: No Diabetes: Yes GI Disorders: No Disorders: No HTN: Yes Hypercholesterolemia: No Liver Disease: No Seizures: Yes Thyroid Disease: Yes - Surgical History Abdominal Surgery: No Appendectomy: Yes Cardiac Surgery: No Cholecystectomy: Yes Lung Surgery: No Neurologic Surgery: No Orthopedic Surgery: Yes (BACK SURGERY) - Immunization History Immunization Up to Date: Yes - Psycho/Social/Smoking Cessation Hx Anxiety: No Suicidal Ideation: No Smoking History: Never smoked Have you smoked in the past 12 months: No Hx Alcohol Use: No Drug/Substance Use Hx: No Substance Use Type: None Hx Substance Use Treatment: No <Bobby Waller - Last Filed: 06/09/17 18:55> - Past Medical History Allergies/Adverse Reactions: Allergies Allergy/AdvReac Type Severity Reaction Status Date / Time No Known Allergies Allergy Verified 06/09/17 16:23 Home Medications: Ambulatory Orders Amlodipine Besylate [Norvasc -] 5 mg PO DAILY 12/11/16 Atorvastatin Ca [Lipitor] 20 mg PO HS 12/11/16 Duloxetine HCl 60 mg PO DAILY 12/11/16 Isosorbide Mononitrate [Isosorbide Mononitrate ER] 60 mg PO DAILY 12/11/16 Lacosamide [Vimpat -] 100 mg PO DAILY 12/11/16 Levetiracetam 750 mg PO HS 12/11/16 Levothyroxine [Synthroid -] 50 mcg PO DAILY 12/11/16 Losartan Potassium 50 mg PO DAILY 12/11/16 Magnesium Oxide 800 mg PO HS 12/11/16 Metformin HCl 500 mg PO BID 12/11/16 Metoprolol Succinate [Toprol Xl] 100 mg PO HS 12/11/16 Omeprazole 40 mg PO DAILY 12/11/16 Sitagliptin Phosphate [Januvia] 25 mg PO HS 12/11/16 Warfarin Na [Coumadin -] 5 mg PO DAILY 12/11/16 Warfarin Na [Coumadin -] 6 mg PO DAILY 12/11/16 Review of Systems - Review of Systems Constitutional: No: Chills, Fever HEENTM: No: Double Vision Respiratory: No: Cough, Shortness of Breath Cardiac (ROS): No: Chest Pain ABD/GI: No: Nausea, Vomiting Neurological: Yes: Headache, Weakness All Other Systems: Reviewed and Negative <Bobby Waller - Last Filed: 06/09/17 18:55> *Physical Exam - Vital Signs Last Vital Signs Temp Pulse Resp BP Pulse Ox 97.8 F 77 18 135/74 100 06/09/17 16:23 06/09/17 16:23 06/09/17 16:23 06/09/17 16:23 06/09/17 16:23 - Physical Exam Comments: 06/09/17 17:33 GENERAL: The patient is awake, alert, and fully oriented, in no acute distress. HEAD: Normal with no signs of trauma. EYES: Pupils equal, round and reactive to light, extraocular movements intact, sclera anicteric, conjunctiva clear with no pallor. ENT: Ears normal, nares patent, oropharynx clear without exudates. Moist mucous membranes. NECK: Normal range of motion, supple without lymphadenopathy, JVD, or masses. LUNGS: Breath sounds equal, clear to auscultation bilaterally. No wheeze/ crackles. HEART: Regular rate and rhythm, normal S1 and S2 without murmur or rub. ABDOMEN: Soft/nontender/nondistended. BS wnl. No guarding or rebound. No palpable masses. No hepatosplenomegaly. EXTREMITIES: Normal range of motion, no edema. No clubbing or cyanosis. No cords, erythema, or tenderness. NEUROLOGICAL: +Strength is 5/5 on the right and 4/5 on the left. Cranial nerves II through XII grossly intact. Normal speech. PSYCH: Normal mood, normal affect. SKIN: Warm, Dry, normal turgor, no rashes or lesions noted. <Guadalupe Hull - Last Filed: 06/09/17 18:52> - Vital Signs Last Vital Signs Temp Pulse Resp BP Pulse Ox 97.8 F 77 18 135/74 100 06/09/17 16:23 06/09/17 16:23 06/09/17 16:23 06/09/17 16:23 06/09/17 16:23 <Bobby Waller - Last Filed: 06/09/17 18:55> Heart Score/ECG Review #1 ECG reviewed & interpreted by me at: 17:41 06/09/17 17:56 afib at 72. normal intervals. q wave v1v2, no acute st changes <Bobby Waller - Last Filed: 06/09/17 18:55> ED Treatment Course - LABORATORY CBC & Chemistry Diagram: 06/09/17 17:05 06/09/17 17:05 - ADDITIONAL ORDERS Additional order review: 06/09/17 17:05 RBC 3.89 MCV 79.3 L MCHC 32.8 RDW 15.8 H MPV 7.9 Neutrophils % 71.2 Lymphocytes % 20.9 Monocytes % 6.4 Eosinophils % 1.1 Basophils % 0.4 <Guadalupe Hull - Last Filed: 06/09/17 18:52> - LABORATORY CBC & Chemistry Diagram: 06/09/17 17:05 06/09/17 17:05 - RADIOLOGY Radiology Studies Ordered: Category Date Time Status CHEST X-RAY PORTABLE* [RAD] Stat Radiology 06/09/17 16:43 Ordered <Bobby Waller - Last Filed: 06/09/17 18:55> Medical Decision Making - Medical Decision Making 06/09/17 17:35 A call was placed to Dr. Leonard at his office at 5:26 PM. Awaiting a call back. 06/09/17 17:45 The OR was paged and noted that Dr. Leonard is in surgery. 06/09/17 18:01 A call was placed to Dr. Hernandez. Awaiting a call back. Case was discussed with Dr. Hernandez. 06/09/17 18:21 Case was discussed with Dr. Mathieu Leonard. A call was placed to Dr. Jones. 06/09/17 18:43 A call was placed to Dr. Jones. Case discussed with Dr. Jones. <Guadalupe Hull - Last Filed: 06/09/17 18:52> - Critical Care Time Total Critical Care Time (minutes): 30 Critical Care Statement: The care of this patient involved high complexity decision making to prevent further life threatening deterioration of the patient 's condition and/or to evaluate & treat vital organ system(s) failure or risk of failure. - Medical Decision Making 06/09/17 17:25 71y/o F h/o HTN, DM, afib on coumadin sent after outpatient CT head performed today by Dr. Arriaga showed acute on chronic R frontoparietal SDH with midline shift. Pt reports minor head injury 2 weeks ago and 1 week of [place] with ? blurry vision but no diplopia/vomiting/focal weakness. baseline R sided weakness from old CVA. denies any other injury. VSS well appearing atraumatic exam as noted with 4/5 strength on JILL and LLE 71y/o F on coumadin with 17mm R frontoparietal SDH with 7mm midline shift, some L sided weakness on exam. Alert without acute airway issues at this time. pre-op labs, check inr INR reversal as needed neurosurgery consult Admission, PCP Brian 06/09/17 18:[address] [place] [facility] [place] in [place]. accepted to ICU by Dr. Hernandez. Accepted for admission by Dr. Jones, covering Dr. torres. INR 4, FFP and Vit K ordered. Clinically/neurologically unchanged. <Bobby Waller - Last Filed: 06/09/17 18:55> *DC/Admit/Observation/Transfer - Attestations Scribe Attestion: 06/09/17 17:34 Documentation prepared by SHIMON Smith, acting as medical record librarians teacher for Bobby Waller MD. <Guadalupe Hull - Last Filed: 06/09/17 18:52> - Discharge Dispostion Admit: Yes <Bobby Waller - Last Filed: 06/09/17 18:55> Diagnosis at time of Disposition: Subdural hematoma, Supratherapeutic INR Atrial fibrillation Qualifiers: Atrial fibrillation type: chronic Qualified Code(s): I48.2 - Chronic atrial fibrillation - Discharge Dispostion Condition at time of disposition: Guarded
[2017-06-09 17:18] LABS: BASOPHIL 0.4 % (0-2.0); EOSINOPHIL 1.1 % (0-4.5); MCHC 32.8 g/dl (32.0-36.0); MEAN CELL VOLUME 79.3 fl (80-96); MEAN PLT VOLUME 7.9 fl (7.5-11.1); NEUTROPHILS 71.2 % (42.8-82.8); PLATELET COUNT 250 K/MM3 (134-434); RDW 15.8 % (11.6-15.6)
[2017-06-09 17:30] LABS: PROTHROMBIN TIME (PATIENT) 46.7 SEC (9.98-11.88)
[2017-06-09 17:38] LABS: INR 4.12 (0.82-1.09)
[2017-06-09] MEDS ORDERED: PHYTONADIONE 10 MG/1 ML AMP IVPB ONE (17:40)
[2017-06-09 17:48] LABS: ALBUMIN 3.7 g/dl (3.4-5.0); ANION GAP 11 (8-16); BILIRUBIN,TOTAL 0.6 mg/dL (0.2-1.0); CALCIUM 11.1 mg/dL (8.5-10.1); CO2 30 mmol/L (21-32); CREATININE 1.3 mg/dL (0.55-1.02); GLUCOSE,RANDOM 112 mg/dL (74-106); SGOT/AST 16 U/L (15-37); SGPT/ALT 18 U/L (12-78); TOT PROT 7.2 g/dl (6.4-8.2)
[2017-06-09 17:50] LABS: ALK PHOS 129 U/L (45-117); CPK 102 IU/L (26-192); TROPONIN I < 0.02 ng/ml (0.00-0.05)
[2017-06-09] MEDS ORDERED: PHYTONADIONE 10 MG/1 ML AMP ONE (18:01)
[2017-06-09 20:55] VITALS: BMI 30.8
[2017-06-09] MEDS ORDERED: ACETAMINOPHEN 325 MG TABLET (FP) PO PRN (22:58)
[2017-06-09] MEDS ORDERED: DEXTROSE 5%-WATER - 1,000 ML IV SCH (23:00)
--- NOTE | 2017-06-09 23:02 | CONSULT ---
Consult Consult Specialty:: Pulmonary/Critical Care Medicine - History of Present Illness Chief Complaint: headache History of Present Illness: Ms. Styles is a 71 y.o woman with hx CVA (right sided weakness residual), seizures, Afib on coumadin, CAD, HTN, DM, Hypothyroidism who presented to the ER with headache, blurry vision. She denies nausea, vomiting, double vision or speech alterations. She denies weakness or altered mental status. In the ED she was found to have a subdural hematoma and was transfered to ICU for further treatment pending neuro intervention in AM. In the ICU, she is awake, oriented, cooperative and quite pleasant. Her HR is 89 , afib. BP 141/93, RR 16, sat 96%. She speaks Bulgarian with some Chinese. Her speech is clear. She denies visual disturbances, nausea or vomiting. She has equal motor strength bilaterally upper/lower extremities. She reports a headache which has not changed since admission and requests some medication for relief. Her pupils are reactive, no evidence of facial droop. She expressed concerns about her 'low blood sugar', which she reports occurs at night for which she takes honey. She is concerned she will develop low blood sugar tonight as she will be NPO after midnight for possible surgery. The first of 4 units FFP is infusing for INR 4 (pt. takes coumadin for afib). 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 from bug bites over 1 year ago) - Past Surgical History Past Surgical History: Yes: Appendectomy - Alcohol/Substance Use Hx Alcohol Use: No - Smoking History Smoking history: Never smoked Have you smoked in the past 12 months: No - Social History Usual Living Arrangement: With Spouse ADL: Support Services (home health aide 6 days/week 9am-1pm) Home Medications - Allergies Allergies/Adverse Reactions: Allergies Allergy/AdvReac Type Severity Reaction Status Date / Time No Known Allergies Allergy Verified 06/09/17 16:23 - Home Medications Home Medications: Ambulatory Orders Amlodipine Besylate [Norvasc -] 5 mg PO DAILY 12/11/16 Atorvastatin Ca [Lipitor] 20 mg PO HS 12/11/16 Duloxetine HCl 60 mg PO DAILY 12/11/16 Isosorbide Mononitrate [Isosorbide Mononitrate ER] 60 mg PO DAILY 12/11/16 Lacosamide [Vimpat -] 100 mg PO DAILY 12/11/16 Levetiracetam 750 mg PO HS 12/11/16 Levothyroxine [Synthroid -] 50 mcg PO DAILY 12/11/16 Losartan Potassium 50 mg PO DAILY 12/11/16 Magnesium Oxide 800 mg PO HS 12/11/16 Metformin HCl 500 mg PO BID 12/11/16 Metoprolol Succinate [Toprol Xl] 100 mg PO HS 12/11/16 Omeprazole 40 mg PO DAILY 12/11/16 Sitagliptin Phosphate [Januvia] 25 mg PO HS 12/11/16 Warfarin Na [Coumadin -] 5 mg PO DAILY 12/11/16 Warfarin Na [Coumadin -] 6 mg PO DAILY 12/11/16 Family Disease History - Family Disease History Family Disease History: Other: Father (Lung Ca, Was a smoker), Mother (Colon Ca) Review of Systems - Review of Systems Constitutional: reports: No Symptoms Eyes: reports: Blurred Vision HENT: reports: Other (headache) Neck: reports: No Symptoms Cardiovascular: reports: Palpitations Respiratory: reports: No Symptoms Gastrointestinal: reports: No Symptoms Genitourinary: reports: No Symptoms Musculoskeletal: reports: No Symptoms Integumentary: reports: No Symptoms, Wound Neurological: reports: Headache, Seizure Hematology/Lymphatic: reports: No Symptoms Psychiatric: reports: No Symptoms Physical Exam Vital Signs: Vital Signs Temperature 98 F 06/09/17 20:43 Pulse Rate 74 06/09/17 20:43 Respiratory Rate 18 06/09/17 20:43 Blood Pressure 141/93 06/09/17 20:43 O2 Sat by Pulse Oximetry (%) 99 06/09/17 19:35 Constitutional: Yes: No Distress, Obese Eyes: Yes: WNL HENT: Yes: WNL, Atraumatic, Normocephalic Neck: Yes: WNL Cardiovascular: Yes: Pulse Irregular, S1, S2 Respiratory: Yes: CTA Bilaterally Gastrointestinal: Yes: WNL, Soft, Abdomen, Obese ...Rectal Exam: Yes: Deferred Renal/: Yes: WNL Musculoskeletal: Yes: WNL Extremities: Yes: WNL Edema: LLE: Trace, RLE: Trace Peripheral Pulses WNL: Yes Integumentary: Yes: Other (small circular ulcerated areas in various stages of healing with old scars per pt. from mosquito bites while in [place] over 1 year ago) Neurological: Yes: Alert, Oriented ...Motor Strength: WNL Labs: CBCD WBC 9.0 K/mm3 (4.0-10.0) 06/09/17 17:05 RBC 3.89 M/mm3 (3.60-5.2) 06/09/17 17:05 Hgb 10.1 GM/dL (10.7-15.3) L 06/09/17 17:05 Hct 30.9 % (32.4-45.2) L 06/09/17 17:05 MCV 79.3 fl (80-96) L 06/09/17 17:05 MCHC 32.8 g/dl (32.0-36.0) 06/09/17 17:05 RDW 15.8 % (11.6-15.6) H 06/09/17 17:05 Plt Count 250 K/MM3 (134-434) 06/09/17 17:05 MPV 7.9 fl (7.5-11.1) 06/09/17 17:05 CMP Sodium 136 mmol/L (136-145) 06/09/17 17:05 Potassium 4.0 mmol/L (3.5-5.1) 06/09/17 17:05 Chloride 95 mmol/L (98-107) L 06/09/17 17:05 Carbon Dioxide 30 mmol/L (21-32) 06/09/17 17:05 Anion Gap 11 (8-16) 06/09/17 17:05 BUN 26 mg/dL (7-18) H D 06/09/17 17:05 Creatinine 1.3 mg/dL (0.55-1.02) H 06/09/17 17:05 Creat Clearance w eGFR 40.15 (>60) 06/09/17 17:05 Random Glucose 112 mg/dL (74-106) H 06/09/17 17:05 Calcium 11.1 mg/dL (8.5-10.1) H 06/09/17 17:05 Total Bilirubin 0.6 mg/dL (0.2-1.0) D 06/09/17 17:05 AST 16 U/L (15-37) 06/09/17 17:05 ALT 18 U/L (12-78) 06/09/17 17:05 Alkaline Phosphatase 129 U/L (45-117) H 06/09/17 17:05 Total Protein 7.2 g/dl (6.4-8.2) 06/09/17 17:05 Albumin 3.7 g/dl (3.4-5.0) 06/09/17 17:05 CARDIAC ENZYMES Creatine Kinase 102 IU/L (26-192) 06/09/17 17:05 Troponin I < 0.02 ng/ml (0.00-0.05) 06/09/17 17:05 Imaging - Results Chest X-ray: Report Reviewed, Image Reviewed Problem List - Problems (1) Subdural hematoma Code(s): I62.00 - NONTRAUMATIC SUBDURAL HEMORRHAGE, UNSPECIFIED (2) Atrial fibrillation Code(s): I48.91 - UNSPECIFIED ATRIAL FIBRILLATION Qualifiers: Atrial fibrillation type: persistent Qualified Code(s): I48.1 - Persistent atrial fibrillation (3) Supratherapeutic INR Code(s): R79.1 - ABNORMAL COAGULATION PROFILE Assessment/Plan Ms. Styles is a luke 71 y.o woman wiht hx of CVA, asthma, seizures, afib on coumadin, HTN, CAD, DM, hypothyroidism who presents today with headache and found to have subdural hematoma on CT imaging however has no focal deficits. She is admitted to ICU for further observation pending neurosurgical intervention. -Q 1 hour neuro checks, fall precautions -NPO after midnight -acetaminophen for headaches, avoid sedatives if possible -follow fingersticks Q 6 hours -D5W @ 50cc/hr while NPO -mild RENATO, strict I/O's, follow creatine/lytes -hold coumadin -FFP to correct INR (currently ordered for 4 units) -repeat CBC, INR, BMP in AM -venodynes for DVT prophy -H2B -consider spence catheter -neurosurgeon to see pt. in AM Ksenia M. Lamont, ACNP Critical Care Time/MDM Note Total Critical Care Time: 35 Critical Care Statement: The care of this patient involved high complexity decision making to prevent further life threatening deterioration of the patient 's condition and/or to evaluate & treat vital organ system(s) failure or risk of failure.
[2017-06-10] MEDS ORDERED: BUPIVACAINE HCL/PF 0.5% (5MG/ML) 10 ML VIAL IJ ONE
[2017-06-10] MEDS ORDERED: ALBUTEROL SO4 2.5/IPRATROPIUM 0.5 INH SOL 3 ML VIAL.NEB. NEB ONE (02:40)
[2017-06-10] MEDS ORDERED: ALBUTEROL SO4 0.083% IH SOL 2.5 MG/3 ML VIAL.NEB. NEB ONE (03:00)
[2017-06-10 03:22] LABS: INR 1.36 (0.82-1.09); PROTHROMBIN TIME (PATIENT) 15.1 SEC (9.98-11.88)
[2017-06-10] MEDS ORDERED: HEMOQUE TEST 1 EACH EACH ONE (05:39)
[2017-06-10 06:18] LABS: MCHC 33.3 g/dl (32.0-36.0); MEAN CELL VOLUME 77.9 fl (80-96); MEAN PLT VOLUME 8.2 fl (7.5-11.1); PLATELET COUNT 228 K/MM3 (134-434); RDW 15.4 % (11.6-15.6); WHITE BLOOD COUNT 6.6 K/mm3 (4.0-10.0)
[2017-06-10 06:25] LABS: INR 1.28 (0.82-1.09); PROTHROMBIN TIME (PATIENT) 14.2 SEC (9.98-11.88)
[2017-06-10 06:38] LABS: ALBUMIN 3.8 g/dl (3.4-5.0); ALK PHOS 129 U/L (45-117); ANION GAP 6 (8-16); BILIRUBIN,TOTAL 0.9 mg/dL (0.2-1.0); CALCIUM 10.4 mg/dL (8.5-10.1); CO2 34 mmol/L (21-32); CREATININE 1.1 mg/dL (0.55-1.02); GLUCOSE,RANDOM 123 mg/dL (74-106); SGOT/AST 18 U/L (15-37); SGPT/ALT 20 U/L (12-78); TOT PROT 7.3 g/dl (6.4-8.2)
[2017-06-10] MEDS ORDERED: HEMOQUE CONTROL SOLUTION ONE (07:34)
--- NOTE | 2017-06-10 08:54 | PN ---
Physical Exam: SUBJECTIVE: 71 yo woman w/ pmh of multiple CVAs (residual R-sided weakness), seizures, afib on coumadin, CAD, HTN, DM, and hypothyroidism, presenting w/ [place], blurry vision and fatigue in setting of traumatic fall w/ headstrike roughly two weeks ago. CT confirmed sub-dural hematoma, w/ plan for surgical evacuation by neurosurgery this AM. Patient seen and examined by me this AM - Pt complaining of [place], fatigue and blurry vision. [place] worse on L side and mild lightheadness, but states she has not ambulated since admission to ICU. - INR supratherapeutic at 4.12 - Plan for craniotomy and evacuation by neurosurgery today. NPO since midnight. - No major events overnight. PM: - S/p craniotomy and evacuation POD0. Doing well. No major complications per neurosurgical team - Started IV tylenol for residual [place] and residual incisional pain. OBJECTIVE: Vital Signs Intake & Output 06/07/17 06/08/17 06/09/17 06/10/17 23:59 23:59 23:59 23:59 Intake Total 1770 Balance 1770 Weight 81.511 kg 83.098 kg Period Temp Pulse Resp BP Sys/Becerra Pulse Ox Last 24 Hr 98 F-98.6 F 71-82 15-21 114-143/61-93 97-99 GENERAL: The patient is awake, alert, and fully oriented, in no acute distress. HEAD: Normal with no signs of trauma. EYES: PERRL, extraocular movements intact, sclera anicteric, conjunctiva clear. No ptosis. ENT: Ears normal, nares patent, oropharynx clear without exudates, moist mucous membranes. NECK: Trachea midline, full range of motion, supple. LUNGS: Decreased breath sounds at lung bases, no wheezes, no crackles, no accessory muscle use. HEART: Irregularly irregular, S1, S2 without murmur, rub or gallop. ABDOMEN: Soft, nontender, globular, normoactive bowel sounds, no guarding, no rebound, no hepatosplenomegaly, no masses. EXTREMITIES: 2+ pulses, warm, well-perfused. BL stasis dermatitis on anterior shins. NEUROLOGICAL: Possible R lateral deviation of tongue. All other cranial nerves intact. 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 5/5 motor strength in UEs. 4/5 strength grossly in LEs. Decreased sensation in dorsum of R foot. Normal speech , gait not observed. PSYCH: Normal mood, normal affect. SKIN: Warm, dry, normal turgor, no rashes or lesions noted Laboratory Results - last 24 hr CBC, BMP 06/10/17 05:00 06/10/17 05:00 06/10/17 06/10/17 06/10/17 02:30 05:00 05:00 WBC 6.6 RBC 3.55 L Hgb 9.2 L Hct 27.7 L MCV 77.9 L MCH 26.0 MCHC 33.3 RDW 15.4 Plt Count 228 MPV 8.2 INR 1.36 H D 1.28 H Sodium Potassium Chloride Carbon Dioxide Anion Gap BUN Creatinine Creat Clearance w eGFR POC Glucometer Random Glucose Calcium Total Bilirubin AST ALT Alkaline Phosphatase Total Protein Albumin 06/10/17 06/10/17 05:00 05:43 WBC RBC Hgb Hct MCV MCH MCHC RDW Plt Count MPV INR Sodium 137 Potassium 3.6 Chloride 97 L Carbon Dioxide 34 H Anion Gap 6 L BUN 22 H Creatinine 1.1 H Creat Clearance w eGFR 48.69 POC Glucometer 148.02018 Random Glucose 123 H Calcium 10.4 H Total Bilirubin 0.9 D AST 18 ALT 20 Alkaline Phosphatase 129 H Total Protein 7.3 Albumin 3.8 Active Medications Generic Name Dose Route Start Last Admin Trade Name Freq PRN Reason Stop Dose Admin Acetaminophen 650 mg 06/09/17 22:58 06/09/17 23:10 Tylenol - PO 650 mg Q4H PRN Administration FEVER OR PAIN Dextrose 1,000 mls @ 50 mls/hr 06/09/17 23:00 06/09/17 23:16 D5w - IV 50 mls/hr ASDIR ELIZABETH Administration 06/09/17 06/09/17 06/09/17 17:05 17:05 17:05 WBC 9.0 RBC 3.89 Hgb 10.1 L Hct 30.9 L MCV 79.3 L MCHC 32.8 RDW 15.8 H Plt Count 250 Neutrophils % 71.2 Lymphocytes % 20.9 Monocytes % 6.4 Eosinophils % 1.1 Basophils % 0.4 INR 4.12 H* D Sodium 136 Potassium 4.0 Chloride 95 L Carbon Dioxide 30 Anion Gap 11 BUN 26 H D Creatinine 1.3 H Blood Type Antibody Screen 06/09/17 06/10/17 06/10/17 17:05 02:30 05:00 WBC RBC Hgb Hct MCV MCHC RDW Plt Count Neutrophils % Lymphocytes % Monocytes % Eosinophils % Basophils % INR 1.36 H D 1.28 H Sodium Potassium Chloride Carbon Dioxide Anion Gap BUN Creatinine Blood Type O POSITIVE Antibody Screen Negative 06/10/17 06/10/17 05:00 05:00 WBC 6.6 RBC 3.55 L Hgb 9.2 L Hct 27.7 L MCV 77.9 L MCHC 33.3 RDW 15.4 Plt Count 228 Neutrophils % Lymphocytes % Monocytes % Eosinophils % Basophils % INR Sodium 137 Potassium 3.6 Chloride 97 L Carbon Dioxide 34 H Anion Gap 6 L BUN 22 H Creatinine 1.1 H Blood Type Antibody Screen Non-con CT (06/09) - R-side subdural hematoma. ASSESSMENT/PLAN: 71 yo woman w/ pmh of multiple CVAs (residual R-sided weakness), seizures, afib on coumadin, CAD, HTN, DM, and hypothyroidism, presenting w/ [place], blurry vision and fatigue in setting of traumatic fall w/ headstrike roughly two weeks ago, now s/p craniotomy and evacuation of CT confirmed R-sided subdural hematoma. Pt doing well post-op, complaining of mild R side residual [place] and incisional pain. Management per neurosurgery recs. #Neuro - Received tylenol 1mg IV for pain. - Switch to PO oxycodone for pain control - Neuro checks q4h - F/u CT head per neurosurgery in late PM - Keppra for seizure ppx - Neurosurgery f/u. Recs appreciated. #Cardiac - Rate control w/ toprol xl - Continue cozaar, norvasc - home HTN meds - Imdur #Pulm -O2 2L NC. Titrate to >94% - Inhaled brochodilators PRN #ID - Ancef for surg ppx - Trend fever, WBC - monitor for signs of infection #Renal -Strict Is&Os -Daily BMPs -Monitor lytes #Heme - Holding home AC - Repeat INR in AM - Trend H/H. Transfuse at <7 #Endo - ACHS - Januvia, glucophage per home DM meds - Synthroid for hypothyroidism #GI - PPI - clear liquies #FEN -Fluids: IVFs -Electrolytes: Daily BMPs, Trend BUN/Cr -Nutrition: clear liquids, advance per neurosurg recs #PPX -SCDs for DVT ppx -PPI for GI ppx #Dispo - Dispo to ICU for further post-op monitoring/management Roger Lanza, PGY1 Plan discussed with attending, Dr. Hernandez Visit type - Emergency Visit Emergency Visit: No - New Patient This patient is new to me today: Yes Date on this admission: 06/10/17 - Critical Care Critical Care patient: Yes Total Critical Care Time (in minutes): 35 Critical Care Statement: The care of this patient involved high complexity decision making to prevent further life threatening deterioration of the patient 's condition and/or to evaluate & treat vital organ system(s) failure or risk of failure.
[2017-06-10] MEDS ORDERED: BACITRACIN 15 GM TUBE TOPICAL OINTMENT ONE (09:24)
[2017-06-10] MEDS ORDERED: BUPIVACAINE HCL/PF 0.5% (5MG/ML) 10 ML VIAL ONE (09:24)
[2017-06-10] MEDS ORDERED: PROPOFOL 20 ML ONE (09:33)
[2017-06-10] MEDS ORDERED: MIDAZOLAM HCL 2 MG/2 ML SINGLE DOSE VIAL ONE (09:33)
[2017-06-10] MEDS ORDERED: ROCURONIUM BROMIDE 50 MG/5 ML VIAL ONE (09:33)
[2017-06-10] MEDS ORDERED: LIDOCAINE HCL/PF 2% SDV 5ML VIAL ONE (09:34)
[2017-06-10] MEDS ORDERED: ceFAZolin SODIUM 1 GM VIAL ONE (09:36)
[2017-06-10] MEDS ORDERED: GENTAMICIN SO4 80 MG/2 ML VIAL ONE (09:43)
--- NOTE | 2017-06-10 09:54 | HP ---
Admitting History and Physical - Primary Care Physician PCP: Ben Jones - Admission Chief Complaint: BRAIN BLEED History of Present Illness: The patient is a 71 year old female, with a significant past medical history of Asthma, CVA (minimal R sided weakness), partial seizures, Atrial Fibrillation ( on Coumadin), CAD, HTN, HLD, Diabetes and Hypothyroidism, who presents to the emergency department for abnormal CT findings. Patient states that she hit her head 2 weeks ago while fixing a folding chair and denies hitting her head again since then. She reports parietal head pain and blurry vision but denies any double vision or speech disturbance. She denies any new weakness she just reports her baseline right sided residual weakness after the stroke. No nausea or vomiting. 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) Home Medications - Allergies Allergies/Adverse Reactions: Allergies Allergy/AdvReac Type Severity Reaction Status Date / Time No Known Allergies Allergy Verified 06/09/17 16:23 - Home Medications Home Medications: Ambulatory Orders Amlodipine Besylate [Norvasc -] 5 mg PO DAILY 12/11/16 Atorvastatin Ca [Lipitor] 20 mg PO HS 12/11/16 Duloxetine HCl 60 mg PO DAILY 12/11/16 Isosorbide Mononitrate [Isosorbide Mononitrate ER] 60 mg PO DAILY 12/11/16 Lacosamide [Vimpat -] 100 mg PO DAILY 12/11/16 Levetiracetam 750 mg PO HS 12/11/16 Levothyroxine [Synthroid -] 50 mcg PO DAILY 12/11/16 Losartan Potassium 50 mg PO DAILY 12/11/16 Magnesium Oxide 800 mg PO HS 12/11/16 Metformin HCl 500 mg PO BID 12/11/16 Metoprolol Succinate [Toprol Xl] 100 mg PO HS 12/11/16 Omeprazole 40 mg PO DAILY 12/11/16 Sitagliptin Phosphate [Januvia] 25 mg PO HS 12/11/16 Warfarin Na [Coumadin -] 5 mg PO DAILY 12/11/16 Warfarin Na [Coumadin -] 6 mg PO DAILY 12/11/16 Levetiracetam [Keppra -] 750 mg PO BID 06/10/17 Family Disease History - Family Disease History Family Disease History: Other: Father (Lung Ca, Was a smoker), Mother (Colon Ca) Review of Systems - Review of Systems Constitutional: reports: Weakness Eyes: reports: No Symptoms HENT: reports: No Symptoms Neck: reports: No Symptoms Cardiovascular: reports: No Symptoms Respiratory: reports: No Symptoms Gastrointestinal: reports: No Symptoms Genitourinary: reports: No Symptoms Musculoskeletal: reports: Muscle Weakness Integumentary: reports: No Symptoms Neurological: reports: Weakness Endocrine: reports: No Symptoms Hematology/Lymphatic: reports: No Symptoms Psychiatric: reports: No Symptoms Physical Examination Vital Signs: Vital Signs Temperature 98.3 F 06/10/17 06:00 Pulse Rate 77 06/10/17 06:00 Respiratory Rate 18 06/10/17 08:26 Blood Pressure 133/69 06/10/17 06:00 O2 Sat by Pulse Oximetry (%) 99 06/10/17 08:26 Findings/Remarks: PATIENT BEING TRANSFERRED TO O. FOR NEUROSURGERY BRAIN BLEED EVACUATION Constitutional: Yes: Moderate Distress Eyes: Yes: WNL HENT: Yes: WNL Neck: Yes: WNL Cardiovascular: Yes: Pulse Irregular Respiratory: Yes: CTA Bilaterally, On Nasal O2 Gastrointestinal: Yes: WNL Renal/: Yes: WNL Extremities: Yes: Other Edema: No Integumentary: Yes: WNL Wound/Incision: Yes: Clean/Dry Neurological: Yes: Weakness ...Motor Strength: LLE, RLE Psychiatric: Yes: WNL Labs: CBC, BMP 06/10/17 05:00 06/10/17 05:00 Problem List - Problems (1) Atrial fibrillation Code(s): I48.91 - UNSPECIFIED ATRIAL FIBRILLATION Qualifiers: Atrial fibrillation type: persistent Qualified Code(s): I48.1 - Persistent atrial fibrillation (2) Heart palpitations Code(s): R00.2 - PALPITATIONS (3) Subdural hematoma Code(s): I62.00 - NONTRAUMATIC SUBDURAL HEMORRHAGE, UNSPECIFIED (4) Supratherapeutic INR Code(s): R79.1 - ABNORMAL COAGULATION PROFILE (5) Asthma Code(s): J45.909 - UNSPECIFIED ASTHMA, UNCOMPLICATED (6) Cerebrovascular accident (CVA) Code(s): I63.9 - CEREBRAL INFARCTION, UNSPECIFIED Qualifiers: CVA mechanism: thrombosis Precerebral and cerebral artery: middle cerebral artery, left (7) Diabetes mellitus Code(s): E11.9 - TYPE 2 DIABETES MELLITUS WITHOUT COMPLICATIONS Qualifiers: Diabetes mellitus type: type 2 Diabetes mellitus complication status: without complication Diabetes mellitus 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
[2017-06-10] MEDS ORDERED: DEXAMETHASONE SOD PHOSPHATE 4 MG/1 ML VIAL ONE (10:10)
[2017-06-10] MEDS ORDERED: LIDOCAINE HCL 0.5% EPINEPHRINE 1:200,000 50 ML VIAL IJ ONE (10:26)
[2017-06-10] MEDS ORDERED: THROMBIN (BOVINE) 5,000 UNIT VIAL TP ONE (10:30)
[2017-06-10] MEDS ORDERED: BACITRACIN 50,000 UNITS VIAL TP ONE (10:30)
[2017-06-10] MEDS ORDERED: NEOSTIGMINE METHYLSULFATE 0.5 MG/ML - 10 ML MDV ONE (11:04)
[2017-06-10] MEDS ORDERED: GLYCOPYRROLATE 0.2 MG/1 ML VIAL ONE (11:04)
--- NOTE | 2017-06-10 11:11 | EKG ---
Test Reason : Blood Pressure : / mmHG Vent. Rate : 072 BPM Atrial Rate : 041 BPM P-R Int : 000 ms QRS Dur : 092 ms QT Int : 348 ms P-R-T Axes : 000 -23 050 degrees QTc Int : 381 ms ATRIAL FIBRILLATION INCOMPLETE RIGHT BUNDLE BRANCH BLOCK POSSIBLE ANTEROSEPTAL INFARCT (CITED ON OR BEFORE 22-NOV-2016) ABNORMAL ECG WHEN COMPARED WITH ECG OF 11-DEC-2016 09:42, QT HAS SHORTENED Confirmed by MERLE MACK, KARAN ([id number]) on 06/10/2017 11:10:56 AM Referred By: Confirmed By:KARAN BLOOM MD
[2017-06-10] MEDS ORDERED: METOPROLOL TARTRATE 5 MG/5 ML VIAL ONE (11:20)
--- NOTE | 2017-06-10 12:29 | CONSULT ---
Consult Consult Specialty:: hematology/oncology Reason for Consultation:: ICH/supratherapeutic INR - History of Present Illness History of Present Illness: Ms. Styles is a 71 year old female, with a significant past medical history of Asthma, CVA (minimal R sided weakness), partial seizures, Atrial Fibrillation ( on Coumadin), CAD, HTN, HLD, Diabetes and Hypothyroidism, who was sent for a CTH as pt had hit her head to the bed and is on coumadin, by , [facility] with SDH prompting her ER eval from radiology dept. Patient states that she hit her head 2 weeks ago while fixing a folding chair and denies hitting her head again since then. She reports parietal head pain and blurry vision but denies any double vision or speech disturbance. She denies any new weakness she just reports her baseline right sided residual weakness after the stroke. No nausea or vomiting. She was admitted to the ICU. Patient seen and examined. Daughter at bedside. Pt c/o headache, no change in vision, otherwise talking normal. Devonaghtjulita felt that she is a bit more confused last week, but she attributed it to the past strokes as she feels that her mom "comes in and out" after her strokes in the past. Pt denies any urinary or bowel incontinence. 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) Home Medications - Allergies Allergies/Adverse Reactions: Allergies Allergy/AdvReac Type Severity Reaction Status Date / Time No Known Allergies Allergy Verified 06/09/17 16:23 - Home Medications Home Medications: Ambulatory Orders Amlodipine Besylate [Norvasc -] 5 mg PO DAILY 12/11/16 Atorvastatin Ca [Lipitor] 20 mg PO HS 12/11/16 Duloxetine HCl 60 mg PO DAILY 12/11/16 Isosorbide Mononitrate [Isosorbide Mononitrate ER] 60 mg PO DAILY 12/11/16 Lacosamide [Vimpat -] 100 mg PO DAILY 12/11/16 Levetiracetam 750 mg PO HS 12/11/16 Levothyroxine [Synthroid -] 50 mcg PO DAILY 12/11/16 Losartan Potassium 50 mg PO DAILY 12/11/16 Magnesium Oxide 800 mg PO HS 12/11/16 Metformin HCl 500 mg PO BID 12/11/16 Metoprolol Succinate [Toprol Xl] 100 mg PO HS 12/11/16 Omeprazole 40 mg PO DAILY 12/11/16 Sitagliptin Phosphate [Januvia] 25 mg PO HS 12/11/16 Warfarin Na [Coumadin -] 5 mg PO DAILY 12/11/16 Warfarin Na [Coumadin -] 6 mg PO DAILY 12/11/16 Family Disease History - Family Disease History Family Disease History: Other: Father (Lung Ca, Was a smoker), Mother (Colon Ca) Physical Exam Vital Signs: Vital Signs Temperature 98.7 F 06/10/17 08:00 Pulse Rate 89 06/10/17 08:00 Respiratory Rate 18 06/10/17 08:26 Blood Pressure 155/82 06/10/17 08:00 O2 Sat by Pulse Oximetry (%) 99 06/10/17 08:26 Labs: CBC, BMP 06/10/17 05:00 06/10/17 05:00 Imaging - Results Cat Scan: Report Reviewed Problem List - Problems (1) Subdural hematoma Code(s): I62.00 - NONTRAUMATIC SUBDURAL HEMORRHAGE, UNSPECIFIED (2) Atrial fibrillation Code(s): I48.91 - UNSPECIFIED ATRIAL FIBRILLATION Qualifiers: Atrial fibrillation type: persistent Qualified Code(s): I48.1 - Persistent atrial fibrillation (3) Anemia Code(s): D64.9 - ANEMIA, UNSPECIFIED (4) Cerebrovascular accident (CVA) Code(s): I63.9 - CEREBRAL INFARCTION, UNSPECIFIED Qualifiers: CVA mechanism: thrombosis Precerebral and cerebral artery: middle cerebral artery, left (5) CAD (coronary artery disease) Code(s): I25.10 - ATHSCL HEART DISEASE OF [place] CORONARY ARTERY W/O ANG PCTRS Qualifiers: Coronary Disease-Associated Artery/Lesion type: [place] artery Hoh vs. transplanted heart: [place] heart Associated angina: without angina Qualified Code(s): I25.10 - Atherosclerotic heart disease of [place] coronary artery without angina pectoris Assessment/Plan Ms. Styles with multiple co-morbidities, is admitted with SDH and had a supratherapeutic INR in the setting of her hitting head to the side rails of her bed. -s/p 4U of FFP -s/p IV Vit K 10mg IV -INR normalized -ICU level of care -For OR by Neurosurgery today -cardiology f.u -initiation of systemic ac decision per neurosurgery/neuro post surgery. -will follow
--- NOTE | 2017-06-10 12:31 | PN ---
Teaching Attending Note Name of Resident: Roger Lanza ATTENDING PHYSICIAN STATEMENT I saw and evaluated the patient. I reviewed the resident's note and discussed the case with the resident. I agree with the resident's findings and plan as documented. SUBJECTIVE: Pt seen and examined in the ICU. Seen prior to OR, complaining of left sided posterior headache. No nausea or vomiting. OBJECTIVE: Last Vital Signs Temp Pulse Resp BP Pulse Ox 98.7 F 89 18 155/82 99 06/10/17 08:00 06/10/17 08:00 06/10/17 08:26 06/10/17 08:00 06/10/17 08:26 Intake & Output 06/07/17 06/08/17 06/09/17 06/10/17 23:59 23:59 23:59 23:59 Intake Total 2170 Output Total 25 Balance 2145 Weight 179 lb 11.2 oz 183 lb 3.2 oz Gen: NAD at rest Heart: irregular Lung: decreased breath sounds at the bases Abd: soft, nontender Ext: no edema CBC, BMP 06/10/17 05:00 06/10/17 05:00 Active Medications Acetaminophen (Tylenol -) 650 mg PO Q4H PRN PRN Reason: FEVER OR PAIN Last Admin: 06/09/17 23:10 Dose: 650 mg Dextrose (D5w -) 1,000 mls @ 50 mls/hr IV ASDIR ELIZABETH Last Admin: 06/09/17 23:16 Dose: 50 mls/hr ASSESSMENT AND PLAN: Subdural Hematoma h/o CVA Atrial Fibrillation HTN DM CAD Hypothyroidism Asthma - neuro checks - for OR today for hematoma evacuation - neuro checks - holding anticoagulation, monitor INR - rate controlled - inhaled bronchodilators as needed - DVT prophylaxis
--- NOTE | 2017-06-10 12:33 | OP ---
Operative Note - Note: Operative Date: 06/10/17 Pre-Operative Diagnosis: Right frontoparietal SDH (acute on chronic with midline shift) Operation: Right frontoparietal craniotomy, blood evacuation Post-Operative Diagnosis: Same as Pre-op Surgeon: Mathieu Leonard Vice President Risk Management: Solo Lagunas Anesthesiologist/NEEDLE MOLDER: John Jones Anesthesia: General Operative Report Dictated: Yes
--- NOTE | 2017-06-10 12:34 | SURG ---
Surgery Technology Recruiter Note Technology Recruiter: Solo Lagunas PA-C Date of Service: 06/10/17 Diagnosis: Right frontoparietal subdural hematoma (acute on chronic with midline shift) Procedure: Right frontoparietal craniotomy to relieve subdural hematoma I was present for the entirety of the operative procedure. For further detail, please refer to operative report. Visit type - Case Type Case Type: ED Admission - Emergency Emergency Visit: Yes ED Registration Date: 06/09/17 Care time: The patient presented to the Emergency Department on the above date and was hospitalized for further evaluation of their emergent condition. - New patient This patient is new to me today: Yes Date on this admission: 06/10/17
[2017-06-10] MEDS ORDERED: ACETAMINOPHEN 1000 MG/100 ML VIAL (NON FORMULARY) IVPB PRN (13:57)
[2017-06-10] MEDS ORDERED: DEXTROSE 5%-WATER - 1,000 ML IV SCH (16:00)
[2017-06-10] MEDS: oxyCODONE HCL 5 MG TABLET PO PRN ×2 (16:11→21:16)
[2017-06-10] MEDS ORDERED: metFORMIN HCL 500 MG TABLET (FP) PO SCH (16:30)
[2017-06-10] MEDS: metFORMIN HCL 500 MG TABLET (FP) PO SCH (17:17)
--- NOTE | 2017-06-10 21:14 | CONS ---
DATE OF CONSULTATION: 06/10/2017 TIME OF CONSULTATION: 12:50 p.m. CONSULTATION REQUESTED BY: Bne Jones MD LOCATION: CCU. The patient is a 71-year-old female with long-standing history of permanent atrial fibrillation, hypertension, hyperlipidemia, coronary artery disease, angina pectoris, [id number] diabetes mellitus, hypothyroidism. Patient presented to the hospital with history of a fall and hitting her head on a chair approximately 2 weeks ago, and was found to have a right frontoparietal subdural hematoma and underwent a craniotomy. Patient is still recovering from the effects of anesthesia. There is no known history of recent chest pain or discomfort, either at rest or with exertion. No exertional dyspnea, paroxysmal nocturnal dyspnea, or orthopnea has been documented. Patient has residual effects of a previous cerebrovascular accident with right hemiparesis. There is no history of recent seizures. She has a history of bronchial asthma. PAST HISTORY: As mentioned in the history of present illness. History of iron deficiency anemia. SURGICAL HISTORY: Status post appendectomy, status post tonsillectomy, status post cholecystectomy. SOCIAL HISTORY: Not available. FAMILY HISTORY: Not available. ALLERGIES: None documented. MEDICATIONS: 1. Losartan 50 mg p.o. daily. 2. Toprol XL 100 mg p.o. daily. 3. Metformin 500 mg p.o. b.i.d. before meals. 4. Amlodipine 5 mg p.o. daily. 5. Atorvastatin 20 mg p.o. daily. 6. Isosorbide mononitrate 60 mg p.o. daily. 7. Pantoprazole 40 mg p.o. daily. 8. Magnesium oxide 800 mg p.o. nightly. 9. Cymbalta 60 mg p.o. daily. 10. Vimpat 100 mg p.o. daily. 11. Levetiracetam 750 mg p.o. nightly. 12. Synthroid 50 mcg p.o. daily. REVIEW OF SYSTEMS: Constitutional: Unable to obtain an appropriate history, and no family member is available. HEENT: History is not available. Cardiovascular: As mentioned in the history of present illness. Respiratory: As mentioned in the history of present illness. Gastrointestinal: No history of nausea, vomiting, melena, or hematemesis available. Central Nervous System: See history of present illness. Endocrine: History of hypothyroidism. EXAMINATION: General: A 71-year-old female who is easily arousable, would respond to verbal commands. There was no pallor, cyanosis, clubbing, or jaundice. Vital Signs: Weight 183.3 pounds. Blood pressure 143/68 mmHg. Pulse was 80 beats per minute and irregularly irregular. She was afebrile. Neck: Supple. No jugular venous distention. Carotids were 2+. Upstrokes were normal. No bruits were heard and no thyromegaly was present. Heart: PMI was in the 5th intercostal space. No heaves or thrills. S1 was variable, S2 was normal. A grade 1/6 apical systolic murmur was heard. No diastolic murmur or gallops were heard. Lungs: Clear on auscultation. Abdomen: Soft, nontender. No hepatosplenomegaly or palpable masses were felt. Bowel sounds are present. No bruits are heard. Extremities: No calf tenderness or dependent edema. Pulses were equal. LABORATORY DATA: CBC, June 10, 2017: WBC count 6600. Hemoglobin 9.2 g/dL, platelet count 222,000, there were microcytic cell indices. Chemistry, June 10, 2017: Sodium 137, potassium 3.6, chloride 97, CO2 34 mmol/L, BUN 22, creatinine 1.1 mg/dL, glucose 135 mg/dL, serum calcium 10.4, alkaline phosphatase 129. Troponin less than 0.02. ECG was reported to have atrial fibrillation with a controlled ventricular response, incomplete right bundle-branch block, possible anteroseptal infarct as cited before on November 22, 2016. X-ray chest impression: Cardiomegaly, no acute pathology or significant change since December 11, 2016. IMPRESSION: 1. Permanent atrial fibrillation with controlled ventricular response. 2. Coronary artery disease, angina pectoris. 3. Hypertension, hypertensive cardiovascular disease. 4. Status post subdural hematoma. 5. Status post craniotomy. 6. Hypothyroidism, on replacement therapy. 7. Status post embolic cerebrovascular accident with right hemiparesis. 8. Anemia, most likely related to iron deficiency. 9. History of hypercholesterolemia. RECOMMENDATIONS: 1. Continue current medications. 2. Follow up ECG. 3. Evaluation of anemia. 4. Further suggestions as necessary. PROGNOSIS: Critical. Thank you for your referral. Yours sincerely, ELKE ELLIOTT M.D. [id number]
[2017-06-10] MEDS ORDERED: PT OWN MED DRAWER 7, Y5N ONE (21:15)
[2017-06-10] MEDS: ATORVASTATIN CA 20 MG TABLET (FP) PO SCH (21:17)
[2017-06-10] MEDS: METOPROLOL SUCCINATE 100 MG TAB.SR.24H (FP) PO SCH (21:17)
[2017-06-10] MEDS: MAGNESIUM OXIDE 400 MG TABLET (FP) PO SCH (21:17)
[2017-06-10] MEDS: ACETAMINOPHEN 325 MG TABLET (FP) PO PRN (21:17)
[2017-06-10] MEDS: LEVETIRACETAM 250 MG, LEVETIRACETAM 500 MG PO SCH (21:18)
[2017-06-10] MEDS: sitaGLIPtin PHOSPHATE 25 MG TABLET (FP) PO SCH (21:18)
[2017-06-10] MEDS ORDERED: levETIRAcetam 500 MG TABLET (FP) PO SCH ×2 (22:00)
[2017-06-10] MEDS ORDERED: PATIENT'S OWN MEDICATION (NON-FORMULARY) (Levetiracetam [Keppra -] 750 MG) PO SCH (22:00)
[2017-06-10] MEDS ORDERED: sitaGLIPtin PHOSPHATE 25 MG TABLET (FP) PO SCH (22:00)
[2017-06-10] MEDS ORDERED: METOPROLOL SUCCINATE 50 MG TAB.SR.24H (FP) PO SCH (22:00)
[2017-06-10] MEDS ORDERED: MAGNESIUM OXIDE 400 MG TABLET (FP) PO SCH (22:00)
[2017-06-10] MEDS ORDERED: ATORVASTATIN CA 20 MG TABLET (FP) PO SCH (22:00)
[2017-06-11 06:09] LABS: MCH 26.2 pg (25.7-33.7); MCHC 33.2 g/dl (32.0-36.0); MEAN CELL VOLUME 78.9 fl (80-96); MEAN PLT VOLUME 8.3 fl (7.5-11.1); PLATELET COUNT 250 K/MM3 (134-434); RDW 15.9 % (11.6-15.6); WHITE BLOOD COUNT 11.6 K/mm3 (4.0-10.0)
[2017-06-11 06:23] LABS: INR 1.19 (0.82-1.09); PROTHROMBIN TIME (PATIENT) 13.1 SEC (9.98-11.88)
[2017-06-11 06:26] LABS: ACTIVATED PTT 27.6 SECONDS (26.9-34.4)
[2017-06-11] MEDS: LEVOTHYROXINE NA 50 MCG TABLET (FP) PO SCH (06:27)
[2017-06-11] MEDS: metFORMIN HCL 500 MG TABLET (FP) PO SCH ×2 (06:27→16:50)
[2017-06-11 06:43] LABS: ALBUMIN 3.8 g/dl (3.4-5.0); ANION GAP 6 (8-16); BILIRUBIN,TOTAL 0.9 mg/dL (0.2-1.0); CALCIUM 9.9 mg/dL (8.5-10.1); CO2 34 mmol/L (21-32); CREATININE 1.1 mg/dL (0.55-1.02); GLUCOSE,RANDOM 158 mg/dL (74-106); SGOT/AST 18 U/L (15-37); SGPT/ALT 19 U/L (12-78); TOT PROT 7.8 g/dl (6.4-8.2)
[2017-06-11 06:44] LABS: ALK PHOS 146 U/L (45-117)
[2017-06-11] MEDS ORDERED: LEVOTHYROXINE NA 50 MCG TABLET (FP) PO SCH (07:00)
--- NOTE | 2017-06-11 07:35 | PN ---
Physical Exam: SUBJECTIVE: Patient seen and examined by me this AM - More lethargic this AM. Complaining of [place]. Given Oxycodone PO. - HypoK in AM. Repleted PO. PM: - Pt w/ focal, complex seizure consistent w/ prior seizures in epilepsy disorder. Twitching in R hand and L face lasting for one minute. Pt w/ brief LOC , w/ slow return to consciousness. Stat Keppra level sent. Neurosurgery team informed. Sent for non-con CT per neurosurgery rec. Per daughter, pt w/ seizure frequency once every few months, has not had an episode recently. - Pt w/ second seizure roughly one hour later, now with L-beating nystagmus, L- sided head turning, L facial twitch and R arm flexion and hand contraction, w/ LOC. Given 2mg Ativan x2. Daughter worried pt is experiencing another stroke. Code gaston called. Stat non-con Ct head performed. No significant midline shift, acute hemorrhage per radiology. Neuro-surgery informed, also reviewed imaging, deferred to neurology recs regarding seizure ppx. Pt sedated on return to unit. Daughter counseled regarding CT findings/management plan. Insistent pt experienced a stroke, as presentation similar to prior CVAs. Informed this is a possibility, however no AC/thrombolytics can be given due to recent operation. Neurology consulted. Per night team. neurology recommends increasing keppra from 750 qd to 1000 BID and EEG. Orders placed and neurosurgery informed. No focal neurologic deficits noted. MS difficult to assess immediately in post- ictal given sedation. OBJECTIVE: Vital Signs Intake & Output 06/08/17 06/09/17 06/10/17 06/11/17 23:59 23:59 23:59 23:59 Intake Total 3020 150 Output Total 325 Balance 2695 150 Weight 81.511 kg 83.098 kg 81.25 kg Period Temp Pulse Resp BP Sys/Becerra Pulse Ox Last 24 Hr 98.2 F-98.7 F 72-94 13-20 125-1455/68-99 93-99 GENERAL: The patient is awake, alert, and fully oriented, in no acute distress. HEAD: Normal with no signs of trauma. EYES: PERRL, extraocular movements intact, sclera anicteric, conjunctiva clear. No ptosis. ENT: Ears normal, nares patent, oropharynx clear without exudates, moist mucous membranes. NECK: Trachea midline, full range of motion, supple. LUNGS: Decreased breath sounds at lung bases, Mild congestion in upper lung davidson R>L, no wheezes, no crackles, no accessory muscle use. HEART: Irregularly irregular, S1, S2 without murmur, rub or gallop. ABDOMEN: Soft, nontender, globular, normoactive bowel sounds, no guarding, no rebound, no hepatosplenomegaly, no masses. EXTREMITIES: 2+ pulses, warm, well-perfused. BL stasis dermatitis on anterior shins. NEUROLOGICAL: Possible R lateral deviation of tongue. All other cranial nerves intact. Decreased creative intern strength in R hand. 4/5 motor strength in L arm grossly, 5/5 strength grossly in R arm. Decreased creative intern strength bilaterally. 4/5 strength grossly in LEs. Decreased sensation in dorsum of R foot. Normal speech , gait not observed. PSYCH: Normal mood, normal affect. SKIN: Warm, dry, normal turgor, no rashes or lesions noted Laboratory Results - last 24 hr CBCD CBC, BMP 06/11/17 05:00 06/11/17 05:00 WBC 11.6 K/mm3 (4.0-10.0) H D 06/11/17 05:00 RBC 3.92 M/mm3 (3.60-5.2) 06/11/17 05:00 Hgb 10.3 GM/dL (10.7-15.3) L D 06/11/17 05:00 Hct 31.0 % (32.4-45.2) L 06/11/17 05:00 MCV 78.9 fl (80-96) L 06/11/17 05:00 MCHC 33.2 g/dl (32.0-36.0) 06/11/17 05:00 RDW 15.9 % (11.6-15.6) H 06/11/17 05:00 Plt Count 250 K/MM3 (134-434) 06/11/17 05:00 MPV 8.3 fl (7.5-11.1) 06/11/17 05:00 CMP Sodium 133 mmol/L (136-145) L 06/11/17 05:00 Potassium 3.3 mmol/L (3.5-5.1) L 06/11/17 05:00 Chloride 93 mmol/L (98-107) L 06/11/17 05:00 Carbon Dioxide 34 mmol/L (21-32) H 06/11/17 05:00 Anion Gap 6 (8-16) L 06/11/17 05:00 BUN 16 mg/dL (7-18) D 06/11/17 05:00 Creatinine 1.1 mg/dL (0.55-1.02) H 06/11/17 05:00 Creat Clearance w eGFR 48.69 (>60) 06/11/17 05:00 Calcium 9.9 mg/dL (8.5-10.1) 06/11/17 05:00 Total Bilirubin 0.9 mg/dL (0.2-1.0) 06/11/17 05:00 AST 18 U/L (15-37) 06/11/17 05:00 ALT 19 U/L (12-78) 06/11/17 05:00 Alkaline Phosphatase 146 U/L (45-117) H 06/11/17 05:00 Total Protein 7.8 g/dl (6.4-8.2) 06/11/17 05:00 Albumin 3.8 g/dl (3.4-5.0) 06/11/17 05:00 06/10/17 06/10/17 06/11/17 09:20 13:14 05:00 WBC 11.6 H D RBC 3.92 Hgb 10.3 L D Hct 31.0 L MCV 78.9 L MCH 26.2 MCHC 33.2 RDW 15.9 H Plt Count 250 MPV 8.3 INR PTT (Actin FS) Sodium Potassium Chloride Carbon Dioxide Anion Gap BUN Creatinine Creat Clearance w eGFR POC Glucometer 135.05889 198.44494 Random Glucose Calcium Total Bilirubin AST ALT Alkaline Phosphatase Total Protein Albumin 06/11/17 06/11/17 05:00 05:00 WBC RBC Hgb Hct MCV MCH MCHC RDW Plt Count MPV INR 1.19 H PTT (Actin FS) 27.6 D Sodium 133 L Potassium 3.3 L Chloride 93 L Carbon Dioxide 34 H Anion Gap 6 L BUN 16 D Creatinine 1.1 H Creat Clearance w eGFR 48.69 POC Glucometer Random Glucose 158 H D Calcium 9.9 Total Bilirubin 0.9 AST 18 ALT 19 Alkaline Phosphatase 146 H Total Protein 7.8 Albumin 3.8 Active Medications Generic Name Dose Route Start Last Admin Trade Name Freq PRN Reason Stop Dose Admin Acetaminophen 1,000 mg 06/10/17 13:57 06/10/17 14:02 Ofirmev Injection - IVPB 1,000 mg ONCE PRN Administration PAIN LEVEL 6-10 Acetaminophen 650 mg 06/10/17 16:00 06/10/17 21:17 Tylenol - PO 650 mg Q4H PRN Administration FEVER OR PAIN Amlodipine Besylate 5 mg 06/11/17 10:00 Norvasc - PO DAILY [facility] Atorvastatin Calcium 20 mg 06/10/17 22:00 06/10/17 21:17 Lipitor - PO 20 mg HS [facility] Administration Duloxetine HCl 60 mg 06/11/17 10:00 Cymbalta - PO DAILY [facility] Isosorbide Mononitrate 60 mg 06/11/17 10:00 Imdur - PO DAILY [facility] Lacosamide 100 mg 06/11/17 08:00 Vimpat - PO DAILY@0800 [facility] Levetiracetam 250 mg/ 750 mg 06/10/17 22:00 06/10/17 21:18 Levetiracetam 500 mg PO 750 mg BID [facility] Administration Levothyroxine Sodium 50 mcg 06/11/17 07:00 06/11/17 06:27 Synthroid - PO 50 mcg DAILY@0700 [facility] Administration Losartan Potassium 50 mg 06/11/17 10:00 Cozaar - PO DAILY [facility] Magnesium Oxide 800 mg 06/10/17 22:00 06/10/17 21:17 Mag-Ox - PO 800 mg HS [facility] Administration Metformin HCl 500 mg 06/10/17 16:30 06/11/17 06:27 Glucophage - PO 500 mg BIDI [facility] Administration Metoprolol Succinate 100 mg 06/10/17 22:00 06/10/17 21:17 Toprol Xl - PO 100 mg HS [facility] Administration Oxycodone HCl 5 mg 06/10/17 15:52 06/10/17 21:16 Roxicodone - PO 5 mg Q3H PRN Administration MODERATE PAIN Pantoprazole Sodium 40 mg 06/11/17 10:00 Protonix - PO DAILY [facility] Sitagliptin Phosphate 25 mg 06/10/17 22:00 06/10/17 21:18 Januvia - PO 25 mg HS [facility] Administration Imaging: Non-con CT (06/09) - 1. Mixed density, acute on chronic subdural hematoma along the right frontoparietotemporal convexities, measuring up to 17 mm in thickness with compression of the underlying right cerebral hemisphere and 7 mm right to left midline shift. 2. Chronic left frontal lobe infarcts and microvascular ischemic changes in the cerebral white matter, unchanged. Non-con CT head (06/10) - Status post interval right parietal craniotomy in comparison to a prior CT exam of 06/09/2017. Postprocedural air accumulation is seen within the right frontal subarachnoid space laterally. A moderate to large right-sided panhemispheric subdural hematoma is noted which appears slightly diminished in size. Leftward midline displacement is seen without definite interval change. Chronic left frontal cortical infarcts. Non-con CT head (06/11) - No significant interval change. No gross interval acute infarct is identified. Correlate clinically to determine further evaluation. Close follow-up is recommended. Tele: Persistent Afib. ASSESSMENT/PLAN: 71 yo woman w/ pmh of multiple CVAs (residual R-sided weakness), seizures, afib on coumadin, CAD, HTN, DM, and hypothyroidism, presenting w/ [place], blurry vision and fatigue in setting of traumatic fall w/ headstrike roughly two weeks ago, now s/p craniotomy and evacuation of CT confirmed R-sided subdural hematoma. Pt now with multiple worsening seizures focal, complex seizures today, manifesting w/ R arm flexion/hand-clenching, L head deviation, facial twitch and rotary nystagmus to L. Taken for repeat CT of head, w/ no evidence of acute hemorrhage or significant interval change from prior imaging on 06/10. Neurology consulted, recommend increasing Keppra from 750mg qD to 1000 mg BID w/ f/u EEG. Neurosurgery informed, defers to neurology for managment of epilepsy. Likely lowered seizure-threshold due to recent brain surgery. Daughter informed of imaging results and management plan. #Neuro - Increased Keppra to 1000mg BID IV - Tylenol 1000 mg IV for [place] - Switch to PO oxycodone for pain control once assess for aspiration risk - Serial neuro exams Q2H. Monitor MS closely. - EEG - F/u w/ neurology in AM tomorrow. - F/u keppra levels - Neurology aware, following. Will defer to seizure management plan. #Cardiac - Cardiology following. Advise on AC for afib in setting of recent craniotomy - Rate control w/ toprol xl for persistent afIb - Continue cozaar, norvasc - home HTN meds - Imdur #Pulm -O2 4L simple face mask. Titrate to >94% - Inhaled brochodilators PRN #ID - Ancef for surg ppx - Trend temp, WBC - Monitor for signs of infection #Renal - F/u PM CMP. Replete K, Mg as needed - Strict Is&Os - Daily CMPs. Follow Mg, K - Monitor lytes #Heme - Holding home AC per neurosurgery - Repeat INR in AM - Trend H/H. Transfuse at <7 #Endo - ACHS - Januvia, glucophage per home DM meds - Synthroid for hypothyroidism #GI - S+S evaluation - PPI - NPO given aspiration risk #FEN -Fluids: PO fluids after S+S evaluation -Electrolytes: Daily BMPs, Trend BUN/Cr -Nutrition: NPO given aspiration risk. #PPX -SCDs for DVT ppx -PPI for GI ppx #Dispo - Dispo to ICU for continual post-craniotomy care/seizure management. Roger Lanza, PGY1 Plan discussed with attending, Dr. Hernandez Visit type - Emergency Visit Emergency Visit: No - New Patient This patient is new to me today: No - Critical Care Critical Care patient: Yes Total Critical Care Time (in minutes): 45 Critical Care Statement: The care of this patient involved high complexity decision making to prevent further life threatening deterioration of the patient 's condition and/or to evaluate & treat vital organ system(s) failure or risk of failure.
[2017-06-11] MEDS ORDERED: LACOSAMIDE 50 MG TABLET PO SCH (08:00)
--- NOTE | 2017-06-11 08:26 | PN ---
Progress Note (short form) - Note Progress Note: ANESTHESIOLOGY POST-OP CHECK 71F s/p right craniotomy and evacuation of hematoma under general anesthesia, POD #1. No acute complaints. Pain 7/10. Tolerating clears, spence in place. Denies N/V. Vital Signs Temperature 98.4 F 06/11/17 06:00 Pulse Rate 81 06/11/17 06:00 Respiratory Rate 18 06/11/17 06:00 Blood Pressure 130/78 06/11/17 06:00 O2 Sat by Pulse Oximetry (%) 98 06/10/17 20:24 Active Medications Acetaminophen (Ofirmev Injection -) 1,000 mg IVPB ONCE PRN PRN Reason: PAIN LEVEL 6-10 Last Admin: 06/10/17 14:02 Dose: 1,000 mg Acetaminophen (Tylenol -) 650 mg PO Q4H PRN PRN Reason: FEVER OR PAIN Last Admin: 06/10/17 21:17 Dose: 650 mg Amlodipine Besylate (Norvasc -) 5 mg PO DAILY [facility] Atorvastatin Calcium (Lipitor -) 20 mg PO [facility] Last Admin: 06/10/17 21:17 Dose: 20 mg Duloxetine HCl (Cymbalta -) 60 mg PO DAILY [facility] Isosorbide Mononitrate (Imdur -) 60 mg PO DAILY [facility] Lacosamide (Vimpat -) 100 mg PO DAILY@0800 [facility] Levetiracetam 250 mg/ (Levetiracetam 500 mg) 750 mg PO BID [facility] Last Admin: 06/10/17 21:18 Dose: 750 mg Levothyroxine Sodium (Synthroid -) 50 mcg PO DAILY@0700 [facility] Last Admin: 06/11/17 06:27 Dose: 50 mcg Losartan Potassium (Cozaar -) 50 mg PO DAILY [facility] Magnesium Oxide (Mag-Ox -) 800 mg PO [facility] Last Admin: 06/10/17 21:17 Dose: 800 mg Metformin HCl (Glucophage -) 500 mg PO BIDI [facility] Last Admin: 06/11/17 06:27 Dose: 500 mg Metoprolol Succinate (Toprol Xl -) 100 mg PO HS [facility] Last Admin: 06/10/17 21:17 Dose: 100 mg Oxycodone HCl (Roxicodone -) 5 mg PO Q3H PRN PRN Reason: MODERATE PAIN Last Admin: 06/10/17 21:16 Dose: 5 mg Pantoprazole Sodium (Protonix -) 40 mg PO DAILY [facility] Sitagliptin Phosphate (Januvia -) 25 mg PO HS [facility] Last Admin: 06/10/17 21:18 Dose: 25 mg Gen: Awake, alert No apparent anesthesia complications. Will order supplemental analgesic. Continue management as per primary team.
[2017-06-11] MEDS: oxyCODONE HCL 5 MG TABLET PO PRN (08:51)
[2017-06-11] MEDS: LACOSAMIDE 50 MG TABLET PO SCH (08:52)
[2017-06-11] MEDS ORDERED: PT OWN MED DRAWER 7, Y5N ONE (09:21)
[2017-06-11] MEDS: PANTOPRAZOLE 40 MG TABLET (FP) PO SCH (09:52)
[2017-06-11] MEDS: LEVETIRACETAM 250 MG, LEVETIRACETAM 500 MG PO SCH (09:54)
[2017-06-11] MEDS: ISOSORBIDE MONONITRATE 60 MG TAB.SR.24H (FP) PO SCH (09:54)
[2017-06-11] MEDS: DULoxetine HCL 30 MG CAPSULE.DR (FP) PO SCH (09:55)
[2017-06-11] MEDS: amLODIPine BESYLATE 5 MG TABLET (FP) PO SCH (09:56)
[2017-06-11] MEDS: LOSARTAN POTASSIUM 50 MG TABLET (FP) PO SCH (09:56)
[2017-06-11] MEDS ORDERED: ISOSORBIDE MONONITRATE 60 MG TAB.SR.24H (FP) PO SCH (10:00)
[2017-06-11] MEDS ORDERED: amLODIPine BESYLATE 5 MG TABLET (FP) PO SCH (10:00)
[2017-06-11] MEDS ORDERED: PANTOPRAZOLE 40 MG TABLET (FP) PO SCH (10:00)
[2017-06-11] MEDS ORDERED: DULoxetine HCL 30 MG CAPSULE.DR (FP) PO SCH (10:00)
[2017-06-11] MEDS ORDERED: LOSARTAN POTASSIUM 50 MG TABLET (FP) PO SCH (10:00)
--- NOTE | 2017-06-11 10:38 | PN ---
Progress Note (short form) - Note Progress Note: Patient doing well one day after Right craniotomy and evacuation of Subdural hematoma. CT looks good. Mild headaches persist, less than prior to surgery. Patient can get out of bed with nursing/Physical Therapy, however would benefit from vigorous fall precautions. Plan CT Head on Thursday morning and will consider transfer to floor afterwards. All questions answered.
--- NOTE | 2017-06-11 11:19 | PN ---
Progress Note, Physician Chief Complaint: AWAKE CONFUSED MILD DISTRESS - Current Medication List Current Medications: Active Medications Acetaminophen (Ofirmev Injection -) 1,000 mg IVPB ONCE PRN PRN Reason: PAIN LEVEL 6-10 Last Admin: 06/10/17 14:02 Dose: 1,000 mg Acetaminophen (Tylenol -) 650 mg PO Q4H PRN PRN Reason: FEVER OR PAIN Last Admin: 06/10/17 21:17 Dose: 650 mg Amlodipine Besylate (Norvasc -) 5 mg PO DAILY [facility] Last Admin: 06/11/17 09:56 Dose: 5 mg Atorvastatin Calcium (Lipitor -) 20 mg PO HS [facility] Last Admin: 06/10/17 21:17 Dose: 20 mg Duloxetine HCl (Cymbalta -) 60 mg PO DAILY [facility] Last Admin: 06/11/17 09:55 Dose: 60 mg Isosorbide Mononitrate (Imdur -) 60 mg PO DAILY [facility] Last Admin: 06/11/17 09:54 Dose: 60 mg Lacosamide (Vimpat -) 100 mg PO DAILY@0800 [facility] Last Admin: 06/11/17 08:52 Dose: 100 mg Levetiracetam 250 mg/ (Levetiracetam 500 mg) 750 mg PO BID [facility] Last Admin: 06/11/17 09:54 Dose: 750 mg Levothyroxine Sodium (Synthroid -) 50 mcg PO DAILY@0700 [facility] Last Admin: 06/11/17 06:27 Dose: 50 mcg Losartan Potassium (Cozaar -) 50 mg PO DAILY [facility] Last Admin: 06/11/17 09:56 Dose: 50 mg Magnesium Oxide (Mag-Ox -) 800 mg PO HS [facility] Last Admin: 06/10/17 21:17 Dose: 800 mg Metformin HCl (Glucophage -) 500 mg PO BIDI [facility] Last Admin: 06/11/17 06:27 Dose: 500 mg Metoprolol Succinate (Toprol Xl -) 100 mg PO HS [facility] Last Admin: 06/10/17 21:17 Dose: 100 mg Oxycodone HCl (Roxicodone -) 5 mg PO Q3H PRN PRN Reason: MODERATE PAIN Last Admin: 06/11/17 08:51 Dose: 5 mg Pantoprazole Sodium (Protonix -) 40 mg PO DAILY [facility] Last Admin: 06/11/17 09:52 Dose: 40 mg Sitagliptin Phosphate (Januvia -) 25 mg PO HS [facility] Last Admin: 06/10/17 21:18 Dose: 25 mg - Objective Vital Signs: Vital Signs Temperature 98.7 F 06/11/17 10:00 Pulse Rate 79 06/11/17 10:20 Respiratory Rate 25 H 06/11/17 10:00 Blood Pressure 158/91 06/11/17 10:00 O2 Sat by Pulse Oximetry (%) 98 06/11/17 10:20 Constitutional: Yes: Mild Distress Eyes: Yes: WNL HENT: Yes: WNL Neck: Yes: WNL Cardiovascular: Yes: WNL Respiratory: Yes: WNL Gastrointestinal: Yes: WNL Genitourinary: Yes: Kang Present, Incontinence Musculoskeletal: Yes: Muscle Weakness Extremities: Yes: WNL Edema: No Peripheral Pulses WNL: Yes Integumentary: Yes: WNL Wound/Incision: Yes: Dressing Dry and Intact Neurological: Yes: Confusion, Weakness ...Motor Strength: LLE, RLE Psychiatric: Yes: Other Labs: CBC, BMP 06/11/17 05:00 06/11/17 05:00 INR, PTT INR 1.19 (0.82-1.09) H 06/11/17 05:00 Problem List - Problems (1) Atrial fibrillation Code(s): I48.91 - UNSPECIFIED ATRIAL FIBRILLATION Qualifiers: Atrial fibrillation type: persistent Qualified Code(s): I48.1 - Persistent atrial fibrillation (2) Heart palpitations Code(s): R00.2 - PALPITATIONS (3) Subdural hematoma Code(s): I62.00 - NONTRAUMATIC SUBDURAL HEMORRHAGE, UNSPECIFIED (4) Supratherapeutic INR Code(s): R79.1 - ABNORMAL COAGULATION PROFILE (5) Asthma Code(s): J45.909 - UNSPECIFIED ASTHMA, UNCOMPLICATED (6) Cerebrovascular accident (CVA) Code(s): I63.9 - CEREBRAL INFARCTION, UNSPECIFIED Qualifiers: CVA mechanism: thrombosis Precerebral and cerebral artery: middle cerebral artery, left (7) Diabetes mellitus Code(s): E11.9 - TYPE 2 DIABETES MELLITUS WITHOUT COMPLICATIONS Qualifiers: Diabetes mellitus type: type 2 Diabetes mellitus complication status: without complication Diabetes mellitus residential insulin use: without residential use Qualified Code(s): E11.9 - Type 2 diabetes mellitus without complications Assessment/Plan SEIZURE PRECAUTIONS LABS REVIEWED FALL AND NEURO CHECKS WOUND CARE PAIN MEDICATIONS NEUROLOGY EVAL
[2017-06-11] MEDS ORDERED: ONDANSETRON 4 MG/2 ML VIAL IVPB ONE (12:07)
[2017-06-11] MEDS ORDERED: ONDANSETRON 4 MG TABLET PO PRN (12:09)
--- NOTE | 2017-06-11 12:35 | PN ---
Teaching Attending Note Name of Resident: Roger Lanza ATTENDING PHYSICIAN STATEMENT I saw and evaluated the patient. I reviewed the resident's note and discussed the case with the resident. I agree with the resident's findings and plan as documented. SUBJECTIVE: Pt seen and examined in the ICU. s/p craniotomy and hematoma evacuation. Still with headache. Some nausea today. OBJECTIVE: Last Vital Signs Temp Pulse Resp BP Pulse Ox 98.7 F 79 25 H 158/91 98 06/11/17 10:00 06/11/17 10:20 06/11/17 10:00 06/11/17 10:00 06/11/17 10:20 Intake & Output 06/08/17 06/09/17 06/10/17 06/11/17 23:59 23:59 23:59 23:59 Intake Total 3020 150 Output Total 325 Balance 2695 150 Weight 179 lb 11.2 oz 183 lb 3.2 oz 179 lb 2 oz Gen: NAD at rest Heart: RRR Lung: decreased breath sounds at the bases Abd: soft, nontender Ext: no edema CBC, BMP 06/11/17 05:00 06/11/17 05:00 Active Medications Acetaminophen (Tylenol -) 650 mg PO Q4H PRN PRN Reason: FEVER OR PAIN Last Admin: 06/10/17 21:17 Dose: 650 mg Amlodipine Besylate (Norvasc -) 5 mg PO DAILY [facility] Last Admin: 06/11/17 09:56 Dose: 5 mg Atorvastatin Calcium (Lipitor -) 20 mg PO HS [facility] Last Admin: 06/10/17 21:17 Dose: 20 mg Duloxetine HCl (Cymbalta -) 60 mg PO DAILY [facility] Last Admin: 06/11/17 09:55 Dose: 60 mg Isosorbide Mononitrate (Imdur -) 60 mg PO DAILY [facility] Last Admin: 06/11/17 09:54 Dose: 60 mg Lacosamide (Vimpat -) 100 mg PO DAILY@0800 [facility] Last Admin: 06/11/17 08:52 Dose: 100 mg Levetiracetam 250 mg/ (Levetiracetam 500 mg) 750 mg PO BID [facility] Last Admin: 06/11/17 09:54 Dose: 750 mg Levothyroxine Sodium (Synthroid -) 50 mcg PO DAILY@0700 [facility] Last Admin: 06/11/17 06:27 Dose: 50 mcg Losartan Potassium (Cozaar -) 50 mg PO DAILY [facility] Last Admin: 06/11/17 09:56 Dose: 50 mg Magnesium Oxide (Mag-Ox -) 800 mg PO [facility] Last Admin: 06/10/17 21:17 Dose: 800 mg Metformin HCl (Glucophage -) 500 mg PO BIDI [facility] Last Admin: 06/11/17 06:27 Dose: 500 mg Metoprolol Succinate (Toprol Xl -) 100 mg PO [facility] Last Admin: 06/10/17 21:17 Dose: 100 mg Ondansetron HCl (Zofran -) 4 mg PO ONCE PRN PRN Reason: NAUSEA Oxycodone HCl (Roxicodone -) 5 mg PO Q3H PRN PRN Reason: MODERATE PAIN Last Admin: 06/11/17 08:51 Dose: 5 mg Pantoprazole Sodium (Protonix -) 40 mg PO DAILY [facility] Last Admin: 06/11/17 09:52 Dose: 40 mg Sitagliptin Phosphate (Januvia -) 25 mg PO [facility] Last Admin: 06/10/17 21:18 Dose: 25 mg ASSESSMENT AND PLAN: Subdural Hematoma s/p Craniotomy/Hematoma Evacuation h/o CVA Atrial Fibrillation HTN DM CAD Hypothyroidism Asthma - neuro checks - repeat CT head in AM - holding anticoagulation, monitor INR - antiemetics - rate controlled - inhaled bronchodilators as needed - DVT prophylaxis - continue ICU monitoring
[2017-06-11] MEDS ORDERED: POTASSIUM CHLORIDE TABS 20 MEQ TABLET.ER (FP) PO ONE (12:58)
[2017-06-11] MEDS ORDERED: ACETAMINOPHEN 1000 MG/100 ML VIAL (NON FORMULARY) IVPB ONE (14:11)
[2017-06-11] MEDS ORDERED: LORazepam 2 MG/ML SDV VIAL ONE ×4 (14:24→21:32)
[2017-06-11] MEDS ORDERED: LORazepam 2 MG/ML SDV VIAL IM ONE (15:27)
--- NOTE | 2017-06-11 16:00 | PN ---
Progress Note (short form) - Note Progress Note: PAtient seen and examined s/p evacuation of sub dural hematoma Last Vital Signs Temp Pulse Resp BP Pulse Ox 98.8 F 99 H 22 143/86 98 06/11/17 14:00 06/11/17 14:00 06/11/17 14:00 06/11/17 14:00 06/11/17 10:20 Cor: RSR, No murmurs, No gallops Lungs: Clear to P&A Abd: Soft, Normal bowel sounds, No organomegaly Ext:No significant edema Skin: No rashes, Integument intact Abnormal Lab Results 06/11/17 06/11/17 06/11/17 05:00 05:00 05:00 WBC 11.6 H D Hgb 10.3 L D Hct 31.0 L MCV 78.9 L RDW 15.9 H INR 1.19 H Sodium 133 L Potassium 3.3 L Chloride 93 L Carbon Dioxide 34 H Anion Gap 6 L Creatinine 1.1 H Random Glucose 158 H D Alkaline Phosphatase 146 H Active Medications Generic Name Dose Route Start Last Admin Trade Name Freq PRN Reason Stop Dose Admin Acetaminophen 650 mg 06/10/17 16:00 06/10/17 21:17 Tylenol - PO 650 mg Q4H PRN Administration FEVER OR PAIN Amlodipine Besylate 5 mg 06/11/17 10:00 06/11/17 09:56 Norvasc - PO 5 mg DAILY [facility] Administration Atorvastatin Calcium 20 mg 06/10/17 22:00 06/10/17 21:17 Lipitor - PO 20 mg HS [facility] Administration Duloxetine HCl 60 mg 06/11/17 10:00 06/11/17 09:55 Cymbalta - PO 60 mg DAILY [facility] Administration Isosorbide Mononitrate 60 mg 06/11/17 10:00 06/11/17 09:54 Imdur - PO 60 mg DAILY [facility] Administration Lacosamide 100 mg 06/11/17 08:00 06/11/17 08:52 Vimpat - PO 100 mg DAILY@0800 [facility] Administration Levetiracetam 250 mg/ 750 mg 06/10/17 22:00 06/11/17 09:54 Levetiracetam 500 mg PO 750 mg BID [facility] Administration Levothyroxine Sodium 50 mcg 06/11/17 07:00 09/14/17 06:27 Synthroid - PO 50 mcg DAILY@0700 [facility] Administration Losartan Potassium 50 mg 06/11/17 10:00 06/11/17 09:56 Cozaar - PO 50 mg DAILY [facility] Administration Magnesium Oxide 800 mg 06/10/17 22:00 06/10/17 21:17 Mag-Ox - PO 800 mg HS [facility] Administration Metformin HCl 500 mg 06/10/17 16:30 06/11/17 06:27 Glucophage - PO 500 mg BIDI [facility] Administration Metoprolol Succinate 100 mg 06/10/17 22:00 06/10/17 21:17 Toprol Xl - PO 100 mg HS [facility] Administration Ondansetron HCl 4 mg 06/11/17 12:09 Zofran - PO ONCE PRN NAUSEA Oxycodone HCl 5 mg 06/10/17 15:52 06/11/17 08:51 Roxicodone - PO 5 mg Q3H PRN Administration MODERATE PAIN Pantoprazole Sodium 40 mg 06/11/17 10:00 06/11/17 09:52 Protonix - PO 40 mg DAILY [facility] Administration Sitagliptin Phosphate 25 mg 06/10/17 22:00 06/10/17 21:18 Januvia - PO 25 mg HS [facility] Administration A/P 71 y/opatient with HTn, DM, CAD, Afib on coumadin, h/o CVA, comes in with subdural hematoma s/p evacuation INR-1.[address] non changes neuro/cardiology f/u
[2017-06-11 17:04] LABS: ANION GAP 9 (8-16); CALCIUM 10.2 mg/dL (8.5-10.1); CO2 30 mmol/L (21-32); CREATININE 1.1 mg/dL (0.55-1.02); GLUCOSE,RANDOM 164 mg/dL (74-106); MAGNESIUM 1.3 mg/dL (1.8-2.4)
[2017-06-11] MEDS ORDERED: LORazepam 2 MG/ML SDV VIAL IVPUSH ONE ×2 (17:11→21:32)
[2017-06-11] MEDS ORDERED: diazePAM CARPU-JECT 10 MG/2 ML DISP.SYRIN IVPUSH ONE (19:17)
[2017-06-11] MEDS ORDERED: POTASSIUM CHLORIDE 20 MEQ PREMIX IVPB 100 ML IVPB ONE (20:00)
[2017-06-11] MEDS ORDERED: MAGNESIUM SULF 50% (8.12 MEQ/2 ML-1 GM VIAL) IVPB ONE (20:05)
[2017-06-11] MEDS: ATORVASTATIN CA 20 MG TABLET (FP) PO SCH (21:06)
[2017-06-11] MEDS: sitaGLIPtin PHOSPHATE 25 MG TABLET (FP) PO SCH (21:06)
[2017-06-11] MEDS: METOPROLOL SUCCINATE 100 MG TAB.SR.24H (FP) PO SCH (21:07)
[2017-06-11] MEDS: levETIRAcetam 500 MG/5 ML INJECTION VIAL IVPB SCH (21:12)
[2017-06-11] MEDS: KCL 10 MEQ IVPB 100 ML IVPB SCH (21:12)
[2017-06-11] MEDS ORDERED: levETIRAcetam 500 MG TABLET (FP) PO SCH (22:00)
[2017-06-12] MEDS: KCL 10 MEQ IVPB 100 ML IVPB SCH (00:26)
[2017-06-12] MEDS ORDERED: METOPROLOL TARTRATE 5 MG/5 ML VIAL IVPUSH ONE ×3 (03:06→15:25)
[2017-06-12 06:29] LABS: MCH 26.8 pg (25.7-33.7); MCHC 33.6 g/dl (32.0-36.0); MEAN CELL VOLUME 79.8 fl (80-96); MEAN PLT VOLUME 8.9 fl (7.5-11.1); PLATELET COUNT 276 K/MM3 (134-434); RDW 15.5 % (11.6-15.6); WHITE BLOOD COUNT 15.6 K/mm3 (4.0-10.0)
[2017-06-12 06:48] LABS: ALBUMIN 3.3 g/dl (3.4-5.0); ALK PHOS 133 U/L (45-117); ANION GAP 13 (8-16); CALCIUM 9.6 mg/dL (8.5-10.1); CO2 26 mmol/L (21-32); CREATININE 1.1 mg/dL (0.55-1.02); GLUCOSE,RANDOM 145 mg/dL (74-106); MAGNESIUM 1.6 mg/dL (1.8-2.4); PHOSPHOROUS 1.3 mg/dL (2.5-4.9); SGOT/AST 15 U/L (15-37); SGPT/ALT 16 U/L (12-78); TOT PROT 7.2 g/dl (6.4-8.2)
[2017-06-12] MEDS: metFORMIN HCL 500 MG TABLET (FP) PO SCH ×2 (07:03→17:18)
[2017-06-12] MEDS: LEVOTHYROXINE NA 50 MCG TABLET (FP) PO SCH (07:03)
[2017-06-12] MEDS ORDERED: POTASSIUM PHOSPHATE 20 MM in DEXTROSE 5%-WATER - 250 ML IVPB ONE (07:03)
[2017-06-12 07:13] LABS: PLATELET COMMENT2 NO CLOTTING DETECTED; PLATELET COMMENT3 FEW GIANT PLTS
[2017-06-12 07:14] LABS: PLATELET ESTIMATE ADEQUATE (NORMAL)
--- NOTE | 2017-06-12 07:29 | PN ---
Physical Exam: SUBJECTIVE: Patient seen and examined by me this AM - Per night team, plan for intubation discussed with daughter if risk of respiratory decompensation secondary to epilepsy. Keppra increased from 750 qD to 1000mg BID. - Tachy overnight to 129. Permissive hypertension to 150s systolic. - Keppra level pending - Pt received xanax 10mg and 2mg ativan again in evening w/ no further seizures. Pt very sedated this AM, minimally responsive to sternal rub, protecting airway. - Per daughter, pt's L arm was cold w/ no movement in L arm or leg overnight. - Later in AM, pt with another seizure w/ R hand tremor, L facial twitch and head turning for 10 minutes. Daughter requested Ativan be held. Seizure abated after another minute. In immediate post-ictal period, pt responsive to commands to squeeze daughter's R hand, but still very stuporous/sedated and non-verbal. - Neurology saw pt in AM. Recs given below. Neurosurgery aware. OBJECTIVE: Vital Signs Intake & Output 06/09/17 06/10/17 06/11/17 06/12/17 23:59 23:59 23:59 23:59 Intake Total 3020 950 Output Total 325 Balance 2695 950 Weight 81.511 kg 83.098 kg 81.25 kg 81.873 kg Period Temp Pulse Resp BP Sys/Becerra Pulse Ox Last 24 Hr 98.7 F-99.3 F 76-129 18-28 123-159/78-102 98-98 GENERAL: The patient is very sedated, difficult to arouse. Responsive to sternal rub w/ grunting/posturing. HEAD: Normal with no signs of trauma. Craniotomy incision along R posterior cranium. Dressing c/d/i EYES: PERRL. ENT: Ears normal, nares patent NECK: Trachea midline LUNGS: Decreased breath sounds at lung bases, no wheezes, no crackles, no accessory muscle use. HEART: Irregularly irregular, S1, S2 without murmur, rub or gallop. ABDOMEN: Soft, nontender, globular, normoactive bowel sounds, no guarding, no rebound, no hepatosplenomegaly, no masses. EXTREMITIES: 2+ pulses, warm, well-perfused. BL stasis dermatitis on anterior shins. NEURO: Unable to assess neuro status given sedation. Grasp reflex absent BL. Unreactive to painful stimuli in all 4 extremities. SKIN: Warm, dry, normal turgor, no rashes or lesions noted Laboratory Results - last 24 hr CBCD CBC, BMP 06/12/17 05:15 06/12/17 05:15 WBC 15.6 K/mm3 (4.0-10.0) H D 06/12/17 05:15 RBC 3.92 M/mm3 (3.60-5.2) 06/12/17 05:15 Hgb 10.5 GM/dL (10.7-15.3) L 06/12/17 05:15 Hct 31.3 % (32.4-45.2) L 06/12/17 05:15 MCV 79.8 fl (80-96) L 06/12/17 05:15 MCHC 33.6 g/dl (32.0-36.0) 06/12/17 05:15 RDW 15.5 % (11.6-15.6) 06/12/17 05:15 Plt Count 276 K/MM3 (134-434) 06/12/17 05:15 MPV 8.9 fl (7.5-11.1) 06/12/17 05:15 CMP Sodium 134 mmol/L (136-145) L 06/12/17 05:15 Potassium 3.8 mmol/L (3.5-5.1) 06/12/17 05:15 Chloride 95 mmol/L (98-107) L 06/12/17 05:15 Carbon Dioxide 26 mmol/L (21-32) 06/12/17 05:15 Anion Gap 13 (8-16) 06/12/17 05:15 BUN 19 mg/dL (7-18) H 06/12/17 05:15 Creatinine 1.1 mg/dL (0.55-1.02) H 06/12/17 05:15 Creat Clearance w eGFR 48.69 (>60) 06/12/17 05:15 Calcium 9.6 mg/dL (8.5-10.1) 06/12/17 05:15 Total Bilirubin 1.0 mg/dL (0.2-1.0) 06/12/17 05:15 AST 15 U/L (15-37) 06/12/17 05:15 ALT 16 U/L (12-78) 06/12/17 05:15 Alkaline Phosphatase 133 U/L (45-117) H 06/12/17 05:15 Total Protein 7.2 g/dl (6.4-8.2) 06/12/17 05:15 Albumin 3.3 g/dl (3.4-5.0) L 06/12/17 05:15 06/10/17 06/11/17 06/11/17 15:56 05:35 11:24 WBC RBC Hgb Hct MCV MCH MCHC RDW Plt Count MPV Platelet Estimate Platelet Comment Sodium Potassium Chloride Carbon Dioxide Anion Gap BUN Creatinine Creat Clearance w eGFR POC Glucometer 196.41731 154.60885 243.07794 Random Glucose Calcium Phosphorus Magnesium Total Bilirubin AST ALT Alkaline Phosphatase Total Protein Albumin 06/11/17 06/11/17 06/11/17 16:00 19:02 23:24 WBC RBC Hgb Hct MCV MCH MCHC RDW Plt Count MPV Platelet Estimate Platelet Comment Sodium 131 L Potassium 3.4 L Chloride 92 L Carbon Dioxide 30 Anion Gap 9 BUN 16 Creatinine 1.1 H Creat Clearance w eGFR POC Glucometer 191.55569 151.05020 Random Glucose 164 H Calcium 10.2 H Phosphorus Magnesium 1.3 L Total Bilirubin AST ALT Alkaline Phosphatase Total Protein Albumin 06/12/17 06/12/17 05:15 05:15 WBC 15.6 H D RBC 3.92 Hgb 10.5 L Hct 31.3 L MCV 79.8 L MCH 26.8 MCHC 33.6 RDW 15.5 Plt Count 276 MPV 8.9 Platelet Estimate Adequate Platelet Comment No clotting detected Sodium 134 L Potassium 3.8 Chloride 95 L Carbon Dioxide 26 Anion Gap 13 BUN 19 H Creatinine 1.1 H Creat Clearance w eGFR 48.69 POC Glucometer Random Glucose 145 H Calcium 9.6 Phosphorus 1.3 L D Magnesium 1.6 L D Total Bilirubin 1.0 AST 15 ALT 16 Alkaline Phosphatase 133 H Total Protein 7.2 Albumin 3.3 L Active Medications Generic Name Dose Route Start Last Admin Trade Name Freq PRN Reason Stop Dose Admin Acetaminophen 650 mg 06/10/17 16:00 06/10/17 21:17 Tylenol - PO 650 mg Q4H PRN Administration FEVER OR PAIN Amlodipine Besylate 5 mg 06/11/17 10:00 06/11/17 09:56 Norvasc - PO 5 mg DAILY ELIZ[facility]ETH Administration Atorvastatin Calcium 20 mg 06/10/17 22:00 06/11/17 21:06 Lipitor - PO Not Given HS [facility] Duloxetine HCl 60 mg 06/11/17 10:00 06/11/17 09:55 Cymbalta - PO 60 mg DAILY ELIZABETH Administration Potassium Phosphate 20 mm/ 256.6667 mls @ 62.5 mls/hr 06/12/17 07:03 Dextrose IVPB 06/12/17 11:09 ONCE ONE Isosorbide Mononitrate 60 mg 06/11/17 10:00 06/11/17 09:54 Imdur - PO 60 mg DAILY ELIZABETH Administration Lacosamide 100 mg 06/11/17 08:00 06/11/17 08:52 Vimpat - PO 100 mg DAILY@0800 [facility] Administration Levetiracetam 1,000 mg 06/11/17 22:00 06/11/17 21:12 Keppra Injection - IVPB 1,000 mg BID EL[facility]ETH Administration Levothyroxine Sodium 50 mcg 06/11/17 07:00 06/12/17 07:03 Synthroid - PO Not Given DAILY@0700 [facility] Losartan Potassium 50 mg 06/11/17 10:00 06/11/17 09:56 Cozaar - PO 50 mg DAILY [facility] Administration Magnesium Oxide 800 mg 06/10/17 22:00 06/10/17 21:17 Mag-Ox - PO 800 mg HS [facility] Administration Metformin HCl 500 mg 06/10/17 16:30 06/12/17 07:03 Glucophage - PO Not Given BIDI [facility] Metoprolol Succinate 100 mg 06/10/17 22:00 06/11/17 21:07 Toprol Xl - PO Not Given HS [facility] Ondansetron HCl 4 mg 06/11/17 12:09 Zofran - PO ONCE PRN NAUSEA Oxycodone HCl 5 mg 06/10/17 15:52 06/11/17 08:51 Roxicodone - PO 5 mg Q3H PRN Administration MODERATE PAIN Pantoprazole Sodium 40 mg 06/11/17 10:00 06/11/17 09:52 Protonix - PO 40 mg DAILY ELIZABETH Administration Sitagliptin Phosphate 25 mg 06/10/17 22:00 06/11/17 21:06 Januvia - PO Not Given HS [facility] Imaging: Non-con CT (06/09) - 1. Mixed density, acute on chronic subdural hematoma along the right frontoparietotemporal convexities, measuring up to 17 mm in thickness with compression of the underlying right cerebral hemisphere and 7 mm right to left midline shift. 2. Chronic left frontal lobe infarcts and microvascular ischemic changes in the cerebral white matter, unchanged. Non-con CT head (06/10) - Status post interval right parietal craniotomy in comparison to a prior CT exam of 06/09/2017. Postprocedural air accumulation is seen within the right frontal subarachnoid space laterally. A moderate to large right-sided panhemispheric subdural hematoma is noted which appears slightly diminished in size. Leftward midline displacement is seen without definite interval change. Chronic left frontal cortical infarcts. Non-con CT head (06/11) - No significant interval change. No gross interval acute infarct is identified. Correlate clinically to determine further evaluation. Close follow-up is recommended. Tele: Persistent Afib. ASSESSMENT/PLAN: 71 yo woman w/ pmh of multiple CVAs (residual R-sided weakness), seizures, afib on coumadin, CAD, HTN, DM, and hypothyroidism, presenting w/ [place], blurry vision and fatigue in setting of traumatic fall w/ headstrike roughly two weeks ago, now s/p craniotomy and evacuation of CT confirmed R-sided subdural hematoma. Pt with continued seizures in late PM, and again this AM, manifesting w/ R arm flexion/hand-clenching, L head deviation, facial twitch and rotary nystagmus to L. Pt very sedated on benzos. Per daughter, pt takes Keppra, lamictal and vinpat at home for seizure ppx. Non-con CT yesterday w/ no interval change, mass effect or acute bleed. Neurology consulted but deferred seeing pt until AM , recommend increasing Keppra from 750mg qD to 1000 mg BID w/ f/u EEG via phone yesterday. Pt sent for stat MRI today w/ f/u EKG. Likely lowered seizure- threshold due to recent brain surgery. Plan for seizure ppx given below. Neurology, neurosurgery, cardiology following. #Neuro - MRA/MRI ANA MARIA per Neurosurgery team in AM. F/u results - Keppra to 1000mg BID IV. Consider increasing per neurology or second agent if continued seizures. - Serial neuro exams Q2H. Monitor MS closely. - EEG in PM today after MRI - F/u keppra levels - Neurology aware, following. Will defer to seizure management plan. - Plan per neurology team: -Defer on EEG for now -Can give Ativan PRN but will like to avoid overly sedating, avoid giving more than 4mg in a day -There is room to increase Keppra to 1250 twice a day and even 1500mg twice daily, thereafter would consider a second medication -MRI brain ordered -Blood pressure control, avoid hypertensive episodes -Neuro checks Q2hrs -Monitor mental status -Not on AC for Afib, rate control -Strict avoidance of head trauma -Follow up NSGY rec'd, Dr. Ramirez #Cardiac - Recs per cardiology 1. Correction of serum magnesium and follow up magnesium level. 2. IV lopressor 5-10 mg to maintain BP below 140/80 mmHg and for control of heart rate. 3. Spoke to Dr. Leonard regarding resumption of anticoagulation and his feeling is that it should wait a week after her surgery unless there are other emergent reasons for starting anticoagulation earlier. 4. Follow up ECG. #Pulm - O2 4L simple face mask. Titrate to >94% - Inhaled brochodilators PRN #ID - WBC 15.6, uptrending this AM. Likely stress response. - Trend temp, WBC - Monitor for signs of infection #Renal - Replete K, Mg as needed - Strict Is&Os. Monitor UOP - Daily CMPs. Follow Mg, K - Magnesium repleted 2mg IV this AM. #Heme - Holding home AC per neurosurgery - Trend H/H. Transfuse at <7 #Endo - ACHS - Januvia, glucophage per home DM meds - Synthroid for hypothyroidism #GI - S+S evaluation - PPI - NPO given aspiration risk #FEN -Fluids: NPO given unstable MS -Electrolytes: Daily BMPs, Trend BUN/Cr -Nutrition: NPO given aspiration risk. #PPX -SCDs for DVT ppx -PPI for GI ppx #Dispo - Dispo to ICU for continual post-craniotomy care/seizure management. Roger Lanza, PGY1 Plan discussed with attending, Dr. Hernandez Visit type - Emergency Visit Emergency Visit: No - New Patient This patient is new to me today: No - Critical Care Critical Care patient: Yes Total Critical Care Time (in minutes): 45 Critical Care Statement: The care of this patient involved high complexity decision making to prevent further life threatening deterioration of the patient 's condition and/or to evaluate & treat vital organ system(s) failure or risk of failure.
[2017-06-12] MEDS ORDERED: LORazepam 2 MG/ML SDV VIAL IM PRN ×2 (09:15→11:59)
[2017-06-12] MEDS: levETIRAcetam 500 MG/5 ML INJECTION VIAL IVPB SCH ×2 (09:43→22:48)
--- NOTE | 2017-06-12 09:43 | CONSULT ---
Consult - text type - Consultation Consultation Note: Neurology History of Present Illness The patient is a 71 year old female, with a significant past medical history of Asthma, CVA (minimal R sided weakness), partial seizures, Atrial Fibrillation ( on Coumadin), CAD, HTN, HLD, Diabetes and Hypothyroidism, who presented to the emergency department for abnormal CT head findings. Apparently, the patient had suffered head trauma approximately 2 weeks prior to admission while fixing a folding chair and denied hitting her head again. 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 NSGY , Dr. Ramirez consulted, and completed surgical intervention with craniotomy and evacuation with patient placed in ICU under close monitoring. On 06/12, I was consulted as the patient had a seizure in the ICU with L facial twitching. I had spoke to the resident. She was already on Keppra 750mg twice daily, recommended increase to 1000mg twice daily. EEG also ordered, however due to surgical craniatomy, tech not able to complete. She had seizure event in the evening and controlled with Ativan. No seizures over night or this morning. Spoke in detail with nurse and daughter at bedside this morning. Dr. Ramirez had recommended MRI brain and I have no objection to this. Past History - Past Medical History Anemia: Yes Asthma: Yes Cancer: No Cardiac Disorders: Yes (arrhythmia,cardiomegaly.) CVA: Yes COPD: No CHF: No Dementia: No Diabetes: Yes GI Disorders: No Disorders: No HTN: Yes Hypercholesterolemia: No Liver Disease: No Seizures: Yes Thyroid Disease: Yes - Surgical History Abdominal Surgery: No Appendectomy: Yes Cardiac Surgery: No Cholecystectomy: Yes Lung Surgery: No Neurologic Surgery: No Orthopedic Surgery: Yes (BACK SURGERY) - Immunization History Immunization Up to Date: Yes - Psycho/Social/Smoking Cessation Hx Anxiety: No Suicidal Ideation: No Smoking History: Never smoked Have you smoked in the past 12 months: No Hx Alcohol Use: No Drug/Substance Use Hx: No Substance Use Type: None Hx Substance Use Treatment: No Active Medications Acetaminophen (Tylenol -) 650 mg PO Q4H PRN PRN Reason: FEVER OR PAIN Last Admin: 06/10/17 21:17 Dose: 650 mg Amlodipine Besylate (Norvasc -) 5 mg PO DAILY [facility]IZABETH Last Admin: 06/11/17 09:56 Dose: 5 mg Atorvastatin Calcium (Lipitor -) 20 mg PO HS [facility] Last Admin: 06/11/17 21:06 Dose: Not Given Duloxetine HCl (Cymbalta -) 60 mg PO DAILY [facility] Last Admin: 06/11/17 09:55 Dose: 60 mg Potassium Phosphate 20 mm/ (Dextrose) 256.6667 mls @ 62.5 mls/hr IVPB ONCE ONE Stop: 06/12/17 11:09 Isosorbide Mononitrate (Imdur -) 60 mg PO DAILY [facility] Last Admin: 06/11/17 09:54 Dose: 60 mg Lacosamide (Vimpat -) 100 mg PO DAILY@0800 [facility] Last Admin: 06/11/17 08:52 Dose: 100 mg Levetiracetam (Keppra Injection -) 1,000 mg IVPB BID [facility] Last Admin: 06/11/17 21:12 Dose: 1,000 mg Levothyroxine Sodium (Synthroid -) 50 mcg PO DAILY@0700 [facility] Last Admin: 06/12/17 07:03 Dose: Not Given Lorazepam (Ativan Injection -) 2 mg IM DAILY PRN PRN Reason: ANXIETY Losartan Potassium (Cozaar -) 50 mg PO DAILY [facility] Last Admin: 06/11/17 09:56 Dose: 50 mg Magnesium Oxide (Mag-Ox -) 800 mg PO [facility] Last Admin: 06/10/17 21:17 Dose: 800 mg Metformin HCl (Glucophage -) 500 mg PO BIDI [facility] Last Admin: 06/12/17 07:03 Dose: Not Given Metoprolol Succinate (Toprol Xl -) 100 mg PO [facility] Last Admin: 06/11/17 21:07 Dose: Not Given Ondansetron HCl (Zofran -) 4 mg PO ONCE PRN PRN Reason: NAUSEA Oxycodone HCl (Roxicodone -) 5 mg PO Q3H PRN PRN Reason: MODERATE PAIN Last Admin: 06/11/17 08:51 Dose: 5 mg Pantoprazole Sodium (Protonix -) 40 mg PO DAILY [facility] Last Admin: 06/11/17 09:52 Dose: 40 mg Sitagliptin Phosphate (Januvia -) 25 mg PO [facility] Last Admin: 06/11/17 21:06 Dose: Not Given Review of Systems - Review of Systems Constitutional: No: Chills, Fever HEENTM: No: Double Vision Respiratory: No: Cough, Shortness of Breath Cardiac (ROS): No: Chest Pain ABD/GI: No: Nausea, Vomiting Neurological: Yes: Headache, Weakness All Other Systems: Reviewed and Negative *Physical Exam - Vital Signs Last Vital Signs Temp Pulse Resp BP Pulse Ox 97.8 F 77 18 135/74 100 06/09/17 16:23 06/09/17 16:23 06/09/17 16:23 06/09/17 16:23 06/09/17 16:23 GENERAL: The patient is asleep but arousable, in NAD, comfortable appearing, following minimal commands HEAD: S/P surgical intervention EYES: Pupils equal, round and reactive to light, extraocular movements intact, sclera anicteric, conjunctiva clear with no pallor. ENT: Ears normal, nares patent, oropharynx clear without exudates. Moist mucous membranes. LUNGS: Breath sounds equal, clear to auscultation bilaterally. No wheeze/ crackles. HEART: Regular rate and rhythm, normal S1 and S2 without murmur or rub. ABDOMEN: Soft/nontender/nondistended. BS wnl. No guarding or rebound. No palpable masses. No hepatosplenomegaly. EXTREMITIES: No edema. No clubbing or cyanosis. No cords, erythema, or tenderness. NEUROLOGICAL: Limited exam, Cranial nerves II through XII grossly intact, not able to participate in confrontation testing but appears to move ext, unclear exam strength, responds to tactile simulation SKIN: Warm, Dry, normal turgor, no rashes or lesions noted. CBCD WBC 15.6 K/mm3 (4.0-10.0) H D 06/12/17 05:15 RBC 3.92 M/mm3 (3.60-5.2) 06/12/17 05:15 Hgb 10.5 GM/dL (10.7-15.3) L 06/12/17 05:15 Hct 31.3 % (32.4-45.2) L 06/12/17 05:15 MCV 79.8 fl (80-96) L 06/12/17 05:15 MCHC 33.6 g/dl (32.0-36.0) 06/12/17 05:15 RDW 15.5 % (11.6-15.6) 06/12/17 05:15 Plt Count 276 K/MM3 (134-434) 06/12/17 05:15 MPV 8.9 fl (7.5-11.1) 06/12/17 05:15 CMP Sodium 134 mmol/L (136-145) L 06/12/17 05:15 Potassium 3.8 mmol/L (3.5-5.1) 06/12/17 05:15 Chloride 95 mmol/L (98-107) L 06/12/17 05:15 Carbon Dioxide 26 mmol/L (21-32) 06/12/17 05:15 Anion Gap 13 (8-16) 06/12/17 05:15 BUN 19 mg/dL (7-18) H 06/12/17 05:15 Creatinine 1.1 mg/dL (0.55-1.02) H 06/12/17 05:15 Creat Clearance w eGFR 48.69 (>60) 06/12/17 05:15 Calcium 9.6 mg/dL (8.5-10.1) 06/12/17 05:15 Total Bilirubin 1.0 mg/dL (0.2-1.0) 06/12/17 05:15 AST 15 U/L (15-37) 06/12/17 05:15 ALT 16 U/L (12-78) 06/12/17 05:15 Alkaline Phosphatase 133 U/L (45-117) H 06/12/17 05:15 Total Protein 7.2 g/dl (6.4-8.2) 06/12/17 05:15 Albumin 3.3 g/dl (3.4-5.0) L 06/12/17 05:15 - RADIOLOGY CT head reviewed Plan: 71 year old female, with a significant past medical history of Asthma, CVA ( minimal R sided weakness), partial seizures, Atrial Fibrillation (on Coumadin), CAD, HTN, HLD, Diabetes and Hypothyroidism, who presented to the emergency department for abnormal CT head findings. Apparently, the patient had suffered head trauma approximately 2 weeks prior to admission while fixing a folding chair and denied hitting her head again. 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 NSGY, Dr. Ramirez consulted, and completed surgical intervention with craniotomy and evacuation. On 06/12, I was consulted as the patient had a seizure in the ICU with L facial twitching. I had spoke to the resident. She was already on Keppra 750mg twice daily, recommended increase to 1000mg twice daily. EEG also ordered , however due to surgical craniatomy, tech not able to complete. She had seizure event in the evening and controlled with Ativan. No seizures over night or this morning. Spoke in detail with nurse and daughter at bedside this morning. Dr. Ramirez had recommended MRI brain and I have no objection to this. -Defer on EEG for now -Can give Ativan PRN but will like to avoid overly sedating, avoid giving more than 4mg in a day -There is room to increase Keppra to 1250 twice a day and even 1500mg twice daily, thereafter would consider a second medication -MRI brain ordered -Blood pressure control, avoid hypertensive episodes -Neuro checks Q2hrs -Monitor mental status -Not on AC for Afib, rate control -Strict avoidance of head trauma -Follow up NSGY rec'd, Dr. Ramirez -DVT ppx -Critical care time 50 mins
[2017-06-12] MEDS: amLODIPine BESYLATE 5 MG TABLET (FP) PO SCH (09:52)
[2017-06-12] MEDS: PANTOPRAZOLE 40 MG TABLET (FP) PO SCH (09:52)
[2017-06-12] MEDS: LACOSAMIDE 50 MG TABLET PO SCH (09:52)
[2017-06-12] MEDS: DULoxetine HCL 30 MG CAPSULE.DR (FP) PO SCH (09:52)
[2017-06-12] MEDS: ISOSORBIDE MONONITRATE 60 MG TAB.SR.24H (FP) PO SCH (10:34)
[2017-06-12] MEDS: LOSARTAN POTASSIUM 50 MG TABLET (FP) PO SCH (10:34)
[2017-06-12] MEDS ORDERED: METOPROLOL TARTRATE 5 MG/5 ML VIAL ONE ×2 (10:35→16:01)
--- NOTE | 2017-06-12 10:38 | PN ---
Progress Note (short form) - Note Progress Note: S: 71 year old female with a history of permanent atrial fibrillation, CAD, angina pectoris, HTN, hypertensive cardiovascular disease, history of CVA, followed by seizure disorder, with history of residual right sided weakness, NIDDM, hypothyroidism, recent traumatic subdural hematoma s/p craniotomy. On reviewing the chart, patient had recurring seizures and according to her daughter one lasted over twenty minutes. Presently patient is unresponsive to painful stimuli. Patient presently has rapid ventricular response and elevated BP. Active Medications Generic Name Dose Route Start Last Admin Trade Name Freq PRN Reason Stop Dose Admin Acetaminophen 650 mg 06/10/17 16:00 06/10/17 21:17 Tylenol - PO 650 mg Q4H PRN Administration FEVER OR PAIN Amlodipine Besylate 5 mg 06/11/17 10:00 06/12/17 09:52 Norvasc - PO Not Given DAILY [facility] Atorvastatin Calcium 20 mg 06/10/17 22:00 06/11/17 21:06 Lipitor - PO Not Given HS [facility] Duloxetine HCl 60 mg 06/11/17 10:00 06/12/17 09:52 Cymbalta - PO Not Given DAILY [facility] Potassium Phosphate 20 mm/ 256.6667 mls @ 62.5 mls/hr 06/12/17 07:03 06/12/17 09:39 Dextrose IVPB 06/12/17 11:09 62.5 mls/hr ONCE ONE Administration Isosorbide Mononitrate 60 mg 06/11/17 10:00 06/12/17 10:34 Imdur - PO Not Given DAILY [facility] Lacosamide 100 mg 06/11/17 08:00 06/12/17 09:52 Vimpat - PO Not Given DAILY@0800 [facility] Levetiracetam 1,000 mg 06/11/17 22:00 06/12/17 09:43 Keppra Injection - IVPB 1,000 mg BID [facility] Administration Levothyroxine Sodium 50 mcg 06/11/17 07:00 06/12/17 07:03 Synthroid - PO Not Given DAILY@0700 [facility] Lorazepam 2 mg 06/12/17 09:15 Ativan Injection - IM DAILY PRN ANXIETY Losartan Potassium 50 mg 06/11/17 10:00 06/12/17 10:34 Cozaar - PO Not Given DAILY [facility] Magnesium Oxide 800 mg 06/10/17 22:00 06/10/17 21:17 Mag-Ox - PO 800 mg HS [facility] Administration Metformin HCl 500 mg 06/10/17 16:30 06/12/17 07:03 Glucophage - PO Not Given BIDI [facility] Metoprolol Succinate 100 mg 06/10/17 22:00 06/11/17 21:07 Toprol Xl - PO Not Given HS [facility] Ondansetron HCl 4 mg 06/11/17 12:09 Zofran - PO ONCE PRN NAUSEA Oxycodone HCl 5 mg 06/10/17 15:52 06/11/17 08:51 Roxicodone - PO 5 mg Q3H PRN Administration MODERATE PAIN Pantoprazole Sodium 40 mg 06/11/17 10:00 06/12/17 09:52 Protonix - PO Not Given DAILY [facility] Sitagliptin Phosphate 25 mg 06/10/17 22:00 06/11/17 21:06 Januvia - PO Not Given HS [facility] O: 71 year old female is unresponsive. Last Vital Signs Temp Pulse Resp BP Pulse Ox 98.6 F 128 irregularly irregular 22 157/106 99 06/12/17 10:00 06/12/17 10:12 06/12/17 10:00 06/12/17 10:00 06/12/17 10:12 Neck: Supple, no JVD, negative HJR, carotids were equal and upstrokes were normal, no thyromegaly appreciated. Heart: PMI was in the 5th intercostal space, no heaves or thrills, S1 and S2 were normal. No murmurs or gallops were appreciated. Lungs: Clear on auscultation bilaterally. Abdomen: Soft, nontender, no hepatosplenomegaly appreciated, and no palpable masses were felt. Extremities: No calf tenderness or dependent edema. Pulses are normal. CBC, BMP 06/12/17 05:15 06/12/17 05:15 Laboratory Results - last 24 hr 06/10/17 06/11/17 06/11/17 15:56 05:35 11:24 WBC RBC Hgb Hct MCV MCH MCHC RDW Plt Count MPV Platelet Estimate Platelet Comment Sodium Potassium Chloride Carbon Dioxide Anion Gap BUN Creatinine Creat Clearance w eGFR POC Glucometer 196.93398 154.43626 243.45324 Random Glucose Calcium Phosphorus Magnesium Total Bilirubin AST ALT Alkaline Phosphatase Total Protein Albumin 06/11/17 06/11/17 06/11/17 16:00 19:02 23:24 WBC RBC Hgb Hct MCV MCH MCHC RDW Plt Count MPV Platelet Estimate Platelet Comment Sodium 131 L Potassium 3.4 L Chloride 92 L Carbon Dioxide 30 Anion Gap 9 BUN 16 Creatinine 1.1 H Creat Clearance w eGFR POC Glucometer 191.82626 151.86061 Random Glucose 164 H Calcium 10.2 H Phosphorus Magnesium 1.3 L Total Bilirubin AST ALT Alkaline Phosphatase Total Protein Albumin 06/12/17 06/12/17 05:15 05:15 WBC 15.6 H D RBC 3.92 Hgb 10.5 L Hct 31.3 L MCV 79.8 L MCH 26.8 MCHC 33.6 RDW 15.5 Plt Count 276 MPV 8.9 Platelet Estimate Adequate Platelet Comment No clotting detected Sodium 134 L Potassium 3.8 Chloride 95 L Carbon Dioxide 26 Anion Gap 13 BUN 19 H Creatinine 1.1 H Creat Clearance w eGFR 48.69 POC Glucometer Random Glucose 145 H Calcium 9.6 Phosphorus 1.3 L D Magnesium 1.6 L D Total Bilirubin 1.0 AST 15 ALT 16 Alkaline Phosphatase 133 H Total Protein 7.2 Albumin 3.3 L Impression: 1. Hypertension, poorly controlled. 2. Atrial fibrillation with rapid ventricular response. 3. Seizures and unresponsiveness. 4. S/p traumatic subdural hematoma. 5. Coronary artery disease/angina pectoris. 6. S/p CVA with right hemiparesis. 7. History of bronchial asthma. 8. Hypomagnesemia. Recommendations: 1. Correction of serum magnesium and follow up magnesium level. 2. IV lopressor 5-10 mg to maintain BP below 140/80 mmHg and for control of heart rate. 3. Spoke to Dr. Leonard regarding resumption of anticoagulation and his feeling is that it should wait a week after her surgery unless there are other emergent reasons for starting anticoagulation earlier. 4. Follow up ECG. Prognosis: Critical Attestation: Documentation prepared by Letitia Gutierrez, acting as quality engineer medical device for Eric Higuera MD.
--- NOTE | 2017-06-12 11:57 | PN ---
Progress Note (short form) - Note Progress Note: Patient seen and examined Currently sedated S/P seizures last P.M. Head- dressing dry and intact Cor: atrial fib with rapid ventricular response Lungs: decreased breath sounds bilaterally Abd: Soft, Normal bowel sounds, No organomegaly Ext:No significant edema, SDS Skin: No rashes, Integument intact Last Vital Signs Temp Pulse Resp BP Pulse Ox 98.6 F 105 H 20 134/98 100 06/12/17 10:00 06/12/17 10:55 06/12/17 10:55 06/12/17 10:55 06/12/17 11:00 CBC, BMP 06/12/17 05:15 06/12/17 05:15 Current Medications Generic Name Dose Route Start Last Admin Trade Name Freq PRN Reason Stop Dose Admin Acetaminophen 650 mg 06/10/17 16:00 06/10/17 21:17 Tylenol - PO 650 mg Q4H PRN Administration FEVER OR PAIN Amlodipine Besylate 5 mg 06/11/17 10:00 06/12/17 09:52 Norvasc - PO Not Given DAILY [facility] Atorvastatin Calcium 20 mg 06/10/17 22:00 06/11/17 21:06 Lipitor - PO Not Given HS [facility] Duloxetine HCl 60 mg 06/11/17 10:00 06/12/17 09:52 Cymbalta - PO Not Given DAILY [facility] Isosorbide Mononitrate 60 mg 06/11/17 10:00 06/12/17 10:34 Imdur - PO Not Given DAILY [facility] Lacosamide 100 mg 06/11/17 08:00 06/12/17 09:52 Vimpat - PO Not Given DAILY@0800 [facility] Levetiracetam 1,000 mg 06/11/17 22:00 06/12/17 09:43 Keppra Injection - IVPB 1,000 mg BID [facility] Administration Levothyroxine Sodium 50 mcg 06/11/17 07:00 06/12/17 07:03 Synthroid - PO Not Given DAILY@0700 [facility] Lorazepam 2 mg 06/12/17 09:15 Ativan Injection - IM DAILY PRN ANXIETY Losartan Potassium 50 mg 06/11/17 10:00 06/12/17 10:34 Cozaar - PO Not Given DAILY [facility] Magnesium Oxide 800 mg 06/10/17 22:00 06/10/17 21:17 Mag-Ox - PO 800 mg HS [facility] Administration Metformin HCl 500 mg 06/10/17 16:30 06/12/17 07:03 Glucophage - PO Not Given BIDI [facility] Metoprolol Succinate 100 mg 06/10/17 22:00 06/11/17 21:07 Toprol Xl - PO Not Given HS [facility] Ondansetron HCl 4 mg 06/11/17 12:09 Zofran - PO ONCE PRN NAUSEA Oxycodone HCl 5 mg 06/10/17 15:52 06/11/17 08:51 Roxicodone - PO 5 mg Q3H PRN Administration MODERATE PAIN Pantoprazole Sodium 40 mg 06/11/17 10:00 06/12/17 09:52 Protonix - PO Not Given DAILY [facility] Sitagliptin Phosphate 25 mg 06/10/17 22:00 06/11/17 21:06 Januvia - PO Not Given HS [facility] Impression: Acute and chronic SDH - s/p evacuation Seizures Fe++ deficiency DM Atrial Fib HBP HPL Plan F/U MRI Anti seizure meds per neurology Intensive care monitoring.
--- NOTE | 2017-06-12 13:04 | PN ---
Teaching Attending Note Name of Resident: Roger Lanza ATTENDING PHYSICIAN STATEMENT I saw and evaluated the patient. I reviewed the resident's note and discussed the case with the resident. I agree with the resident's findings and plan as documented. SUBJECTIVE: Patient seen and examined in the ICU. Recurrent seizure since yesterday. Poorly responsive on VM O2. Daughter is at the bedside and she was updated. Intake & Output 06/09/17 06/10/17 06/11/17 06/12/17 23:59 23:59 23:59 23:59 Intake Total 3020 950 Output Total 325 Balance 2695 950 Weight 179 lb 11.2 oz 183 lb 3.2 oz 179 lb 2 oz 180 lb 8 oz Last Vital Signs Temp Pulse Resp BP Pulse Ox 98.6 F 105 H 20 134/98 100 06/12/17 10:00 06/12/17 10:55 06/12/17 10:55 06/12/17 10:55 06/12/17 11:00 Active Medications Acetaminophen (Tylenol -) 650 mg PO Q4H PRN PRN Reason: FEVER OR PAIN Last Admin: 06/10/17 21:17 Dose: 650 mg Amlodipine Besylate (Norvasc -) 5 mg PO DAILY [facility] Last Admin: 06/12/17 09:52 Dose: Not Given Atorvastatin Calcium (Lipitor -) 20 mg PO HS [facility] Last Admin: 06/11/17 21:06 Dose: Not Given Duloxetine HCl (Cymbalta -) 60 mg PO DAILY [facility] Last Admin: 06/12/17 09:52 Dose: Not Given Isosorbide Mononitrate (Imdur -) 60 mg PO DAILY [facility] Last Admin: 06/12/17 10:34 Dose: Not Given Lacosamide (Vimpat -) 100 mg PO DAILY@0800 [facility] Last Admin: 06/12/17 09:52 Dose: Not Given Levetiracetam (Keppra Injection -) 1,000 mg IVPB BID [facility] Last Admin: 06/12/17 09:43 Dose: 1,000 mg Levothyroxine Sodium (Synthroid -) 50 mcg PO DAILY@0700 [facility] Last Admin: 06/12/17 07:03 Dose: Not Given Lorazepam (Ativan Injection -) 1 mg IM ONCE PRN PRN Reason: ANXIETY Losartan Potassium (Cozaar -) 50 mg PO DAILY [facility] Last Admin: 06/12/17 10:34 Dose: Not Given Magnesium Oxide (Mag-Ox -) 800 mg PO HS [facility] Last Admin: 06/10/17 21:17 Dose: 800 mg Metformin HCl (Glucophage -) 500 mg PO BIDI [facility] Last Admin: 06/12/17 07:03 Dose: Not Given Metoprolol Succinate (Toprol Xl -) 100 mg PO HS [facility] Last Admin: 06/11/17 21:07 Dose: Not Given Ondansetron HCl (Zofran -) 4 mg PO ONCE PRN PRN Reason: NAUSEA Oxycodone HCl (Roxicodone -) 5 mg PO Q3H PRN PRN Reason: MODERATE PAIN Last Admin: 06/11/17 08:51 Dose: 5 mg Pantoprazole Sodium (Protonix -) 40 mg PO DAILY [facility] Last Admin: 06/12/17 09:52 Dose: Not Given Sitagliptin Phosphate (Januvia -) 25 mg PO [facility] Last Admin: 06/11/17 21:06 Dose: Not Given Gen: Obtunded, Mildly tachypneic at rest on VM O2 Heart: Tachycardia Lung: decreased breath sounds at the bases Abd: soft, ND Ext: no edema Laboratory Results - last 24 hr 06/11/17 06/11/17 06/11/17 11:24 16:00 19:02 WBC RBC Hgb Hct MCV MCH MCHC RDW Plt Count MPV Platelet Estimate Platelet Comment Sodium 131 L Potassium 3.4 L Chloride 92 L Carbon Dioxide 30 Anion Gap 9 BUN 16 Creatinine 1.1 H Creat Clearance w eGFR POC Glucometer 243.69456 191.93735 Random Glucose 164 H Calcium 10.2 H Phosphorus Magnesium 1.3 L Total Bilirubin AST ALT Alkaline Phosphatase Total Protein Albumin 06/11/17 06/12/17 06/12/17 23:24 05:15 05:15 WBC 15.6 H D RBC 3.92 Hgb 10.5 L Hct 31.3 L MCV 79.8 L MCH 26.8 MCHC 33.6 RDW 15.5 Plt Count 276 MPV 8.9 Platelet Estimate Adequate Platelet Comment No clotting detected Sodium 134 L Potassium 3.8 Chloride 95 L Carbon Dioxide 26 Anion Gap 13 BUN 19 H Creatinine 1.1 H Creat Clearance w eGFR 48.69 POC Glucometer 151.87326 Random Glucose 145 H Calcium 9.6 Phosphorus 1.3 L D Magnesium 1.6 L D Total Bilirubin 1.0 AST 15 ALT 16 Alkaline Phosphatase 133 H Total Protein 7.2 Albumin 3.3 L ASSESSMENT AND PLAN: Recurrent Seizure Subdural Hematoma s/p Craniotomy/Hematoma Evacuation h/o CVA Atrial Fibrillation HTN DM CAD Hypothyroidism Asthma - neuro checks - For MRI/MRA - AC being held - Rate control - BD TX PRN - DVT prophylaxis - continue ICU monitoring Dr Crystal Critical care time spent in reviewing chart, evaluating patient and formulating plan - 35 minutes.
--- NOTE | 2017-06-12 14:09 | PN ---
Progress Note, Physician Chief Complaint: DAUGHTER BEDSIDE, PATIENT SLEEPING - Current Medication List Current Medications: Active Medications Acetaminophen (Tylenol -) 650 mg PO Q4H PRN PRN Reason: FEVER OR PAIN Last Admin: 06/10/17 21:17 Dose: 650 mg Amlodipine Besylate (Norvasc -) 5 mg PO DAILY [facility] Last Admin: 06/12/17 09:52 Dose: Not Given Atorvastatin Calcium (Lipitor -) 20 mg PO HS [facility] Last Admin: 06/11/17 21:06 Dose: Not Given Duloxetine HCl (Cymbalta -) 60 mg PO DAILY [facility] Last Admin: 06/12/17 09:52 Dose: Not Given Isosorbide Mononitrate (Imdur -) 60 mg PO DAILY [facility] Last Admin: 06/12/17 10:34 Dose: Not Given Lacosamide (Vimpat -) 100 mg PO DAILY@0800 [facility] Last Admin: 06/12/17 09:52 Dose: Not Given Levetiracetam (Keppra Injection -) 1,000 mg IVPB BID [facility] Last Admin: 06/12/17 09:43 Dose: 1,000 mg Levothyroxine Sodium (Synthroid -) 50 mcg PO DAILY@0700 [facility] Last Admin: 06/12/17 07:03 Dose: Not Given Lorazepam (Ativan Injection -) 1 mg IM ONCE PRN PRN Reason: ANXIETY Losartan Potassium (Cozaar -) 50 mg PO DAILY [facility] Last Admin: 06/12/17 10:34 Dose: Not Given Magnesium Oxide (Mag-Ox -) 800 mg PO HS [facility] Last Admin: 06/10/17 21:17 Dose: 800 mg Metformin HCl (Glucophage -) 500 mg PO BIDI [facility] Last Admin: 06/12/17 07:03 Dose: Not Given Metoprolol Succinate (Toprol Xl -) 100 mg PO [facility] Last Admin: 06/11/17 21:07 Dose: Not Given Ondansetron HCl (Zofran -) 4 mg PO ONCE PRN PRN Reason: NAUSEA Oxycodone HCl (Roxicodone -) 5 mg PO Q3H PRN PRN Reason: MODERATE PAIN Last Admin: 06/11/17 08:51 Dose: 5 mg Pantoprazole Sodium (Protonix -) 40 mg PO DAILY [facility] Last Admin: 06/12/17 09:52 Dose: Not Given Sitagliptin Phosphate (Januvia -) 25 mg PO HS [facility] Last Admin: 06/11/17 21:06 Dose: Not Given - Objective Vital Signs: Vital Signs Temperature 98.6 F 06/12/17 10:00 Pulse Rate 110 H 06/12/17 13:52 Respiratory Rate 20 06/12/17 13:52 Blood Pressure 140/80 06/12/17 13:52 O2 Sat by Pulse Oximetry (%) 100 06/12/17 11:00 Constitutional: Yes: No Distress Eyes: Yes: WNL HENT: Yes: WNL Neck: Yes: WNL Cardiovascular: Yes: WNL Respiratory: Yes: WNL Gastrointestinal: Yes: WNL Genitourinary: Yes: Jorge Luis Present Musculoskeletal: Yes: WNL Extremities: Yes: WNL Edema: Yes Edema: LLE: Trace, RLE: Trace Peripheral Pulses WNL: Yes Integumentary: Yes: WNL Wound/Incision: Yes: Clean/Dry Neurological: Yes: Other ...Motor Strength: WNL Psychiatric: Yes: WNL Labs: CBC, BMP 06/12/17 05:15 06/12/17 05:15 INR, PTT INR 1.19 (0.82-1.09) H 06/11/17 05:00 Problem List - Problems (1) Atrial fibrillation Code(s): I48.91 - UNSPECIFIED ATRIAL FIBRILLATION Qualifiers: Atrial fibrillation type: persistent Qualified Code(s): I48.1 - Persistent atrial fibrillation (2) Heart palpitations Code(s): R00.2 - PALPITATIONS (3) Subdural hematoma Code(s): I62.00 - NONTRAUMATIC SUBDURAL HEMORRHAGE, UNSPECIFIED (4) Supratherapeutic INR Code(s): R79.1 - ABNORMAL COAGULATION PROFILE (5) Asthma Code(s): J45.909 - UNSPECIFIED ASTHMA, UNCOMPLICATED (6) Cerebrovascular accident (CVA) Code(s): I63.9 - CEREBRAL INFARCTION, UNSPECIFIED Qualifiers: CVA mechanism: thrombosis Precerebral and cerebral artery: middle cerebral artery, left (7) Diabetes mellitus Code(s): E11.9 - TYPE 2 DIABETES MELLITUS WITHOUT COMPLICATIONS Qualifiers: Diabetes mellitus type: type 2 Diabetes mellitus complication status: without complication Diabetes mellitus assisted insulin use: without manager strategic marketing use Qualified Code(s): E11.9 - Type 2 diabetes mellitus without complications (8) Seizure Code(s): R56.9 - UNSPECIFIED CONVULSIONS Assessment/Plan SEIZURE PRECAUTIONS AND NEURO CHECKS MRI WHEN STABLE D/W NEUROSURGERY ANTICOAGUALTION CAN BE STARTED. DVT PROPHYLAXIS NEUROLOGY AND ONCOLOGY F/U APPRECIATED MONITOR LABS ATIVAN JAZMÍN BAJWA
[2017-06-12] MEDS ORDERED: MAGNESIUM SULF 50% (8.12 MEQ/2 ML-1 GM VIAL) IVPB ONE (14:14)
[2017-06-12] MEDS ORDERED: METOPROLOL TARTRATE 5 MG/5 ML VIAL IVPUSH PRN (16:20)
[2017-06-12] MEDS: METOPROLOL TARTRATE 5 MG/5 ML VIAL IVPUSH PRN (16:30)
[2017-06-12] MEDS ORDERED: LABETALOL HCL 5 MG/1 ML (100MG/20 ML VIAL) ONE (18:48)
[2017-06-12] MEDS ORDERED: LABETALOL HCL 5 MG/1 ML (100MG/20 ML VIAL) IVPUSH ONE (19:00)
[2017-06-12] MEDS ORDERED: LORazepam 2 MG/ML SDV VIAL IVPUSH ONE (20:58)
[2017-06-12] MEDS: LABETALOL HCL INJECTION 1,000 MG in DEXTROSE 5%-WATER - 800 ML IV SCH ×2 (21:00→23:07)
[2017-06-12] MEDS: MAGNESIUM OXIDE 400 MG TABLET (FP) PO SCH (22:49)
[2017-06-12] MEDS: sitaGLIPtin PHOSPHATE 25 MG TABLET (FP) PO SCH (22:49)
[2017-06-12] MEDS: METOPROLOL SUCCINATE 100 MG TAB.SR.24H (FP) PO SCH (22:49)
[2017-06-12] MEDS: ATORVASTATIN CA 20 MG TABLET (FP) PO SCH (22:49)
--- NOTE | 2017-06-13 00:23 | PN ---
Progress Note (short form) - Note Progress Note: Patient went for Brain MRI/MRA this evening, which revealed possible acute ischemia. Consideration was given to start anticoagulation, however there remains an acute component of bleeding at the subdural site. Results discussed with Neurosurgery (Dr. Leonard), Neurology (Dr. Storey), Cardiology (Dr. Higuera), and Critical care (Dr. Crystal). Results discussed with daughter, including risks of bleeding with restarting anticoagulation. She needs time to think about it. Anticoagulation will be deferred for now. Patient will be reassessed by primary team in the morning for further need of anticoagulation.
[2017-06-13 06:30] LABS: ANION GAP 12 (8-16); CALCIUM 9.6 mg/dL (8.5-10.1); CO2 25 mmol/L (21-32); GLUCOSE,RANDOM 152 mg/dL (74-106); MAGNESIUM 1.9 mg/dL (1.8-2.4)
[2017-06-13 06:31] LABS: PHOSPHOROUS 3.7 mg/dL (2.5-4.9)
[2017-06-13] MEDS: LEVOTHYROXINE NA 50 MCG TABLET (FP) PO SCH (06:43)
[2017-06-13] MEDS: metFORMIN HCL 500 MG TABLET (FP) PO SCH ×2 (06:43→16:34)
--- NOTE | 2017-06-13 08:12 | PN ---
Progress Note, Physician Chief Complaint: ASLEEP, MINIMAL AROUSAL BEDSIDE - Current Medication List Current Medications: Active Medications Acetaminophen (Tylenol -) 650 mg PO Q4H PRN PRN Reason: FEVER OR PAIN Last Admin: 06/10/17 21:17 Dose: 650 mg Amlodipine Besylate (Norvasc -) 5 mg PO DAILY [facility] Last Admin: 06/12/17 09:52 Dose: Not Given Atorvastatin Calcium (Lipitor -) 20 mg PO HS [facility] Last Admin: 06/12/17 22:49 Dose: Not Given Duloxetine HCl (Cymbalta -) 60 mg PO DAILY [facility] Last Admin: 06/12/17 09:52 Dose: Not Given Labetalol HCl 1,000 mg/ (Dextrose) 1,000 mls @ 30 mls/hr IV TITR [facility]ABETH; 0.5 MG/ MIN PRN Reason: Protocol Last Titration: 06/13/17 00:00 Dose: 0 mg/min Isosorbide Mononitrate (Imdur -) 60 mg PO DAILY [facility] Last Admin: 06/12/17 10:34 Dose: Not Given Lacosamide (Vimpat -) 100 mg PO DAILY@0800 [facility] Last Admin: 06/12/17 09:52 Dose: Not Given Levetiracetam (Keppra Injection -) 1,000 mg IVPB BID [facility] Last Admin: 06/12/17 22:48 Dose: 1,000 mg Levothyroxine Sodium (Synthroid -) 50 mcg PO DAILY@0700 [facility] Last Admin: 06/13/17 06:43 Dose: Not Given Lorazepam (Ativan Injection -) 1 mg IM ONCE PRN PRN Reason: ANXIETY Last Admin: 06/12/17 22:57 Dose: 1 mg Lorazepam (Ativan Injection -) 1 mg IVPUSH ONCE ONE Stop: 06/13/17 20:01 Losartan Potassium (Cozaar -) 50 mg PO DAILY [facility] Last Admin: 06/12/17 10:34 Dose: Not Given Magnesium Oxide (Mag-Ox -) 800 mg PO HS [facility] Last Admin: 06/12/17 22:49 Dose: Not Given Metformin HCl (Glucophage -) 500 mg PO BIDI [facility] Last Admin: 06/13/17 06:43 Dose: Not Given Metoprolol Succinate (Toprol Xl -) 100 mg PO HS [facility] Last Admin: 06/12/17 22:49 Dose: Not Given Metoprolol Tartrate (Lopressor Injection -) 5 mg IVPUSH Q8H PRN Last Admin: 06/12/17 16:30 Dose: 5 mg Metoprolol Tartrate (Lopressor Injection -) 10 mg IVPUSH Q8H PRN Last Admin: 06/12/17 11:20 Dose: 10 mg Oxycodone HCl (Roxicodone -) 5 mg PO Q3H PRN PRN Reason: MODERATE PAIN Last Admin: 06/11/17 08:51 Dose: 5 mg Pantoprazole Sodium (Protonix -) 40 mg PO DAILY [facility] Last Admin: 06/12/17 09:52 Dose: Not Given Sitagliptin Phosphate (Januvia -) 25 mg PO HS [facility] Last Admin: 06/12/17 22:49 Dose: Not Given - Objective Vital Signs: Vital Signs Temperature 98 F 06/13/17 06:00 Pulse Rate 102 H 06/13/17 06:00 Respiratory Rate 21 06/13/17 06:00 Blood Pressure 121/88 06/13/17 06:00 O2 Sat by Pulse Oximetry (%) 100 06/12/17 22:00 Constitutional: Yes: Moderate Distress Eyes: Yes: WNL HENT: Yes: WNL Neck: Yes: WNL Cardiovascular: Yes: WNL Respiratory: Yes: WNL, On Nasal O2 Gastrointestinal: Yes: WNL Genitourinary: Yes: Kang Present Musculoskeletal: Yes: Other Extremities: Yes: WNL Edema: No Peripheral Pulses WNL: Yes Integumentary: Yes: WNL Wound/Incision: Yes: Clean/Dry Neurological: Yes: Confusion, Unsteady Gait, Weakness ...Motor Strength: LLE, RLE Psychiatric: Yes: Other Labs: CBC, BMP 06/12/17 05:15 06/13/17 05:00 INR, PTT INR 1.19 (0.82-1.09) H 06/11/17 05:00 Problem List - Problems (1) Atrial fibrillation Code(s): I48.91 - UNSPECIFIED ATRIAL FIBRILLATION Qualifiers: Atrial fibrillation type: persistent Qualified Code(s): I48.1 - Persistent atrial fibrillation (2) Heart palpitations Code(s): R00.2 - PALPITATIONS (3) Subdural hematoma Code(s): I62.00 - NONTRAUMATIC SUBDURAL HEMORRHAGE, UNSPECIFIED (4) Supratherapeutic INR Code(s): R79.1 - ABNORMAL COAGULATION PROFILE (5) Asthma Code(s): J45.909 - UNSPECIFIED ASTHMA, UNCOMPLICATED (6) Cerebrovascular accident (CVA) Code(s): I63.9 - CEREBRAL INFARCTION, UNSPECIFIED Qualifiers: CVA mechanism: thrombosis Precerebral and cerebral artery: middle cerebral artery, left (7) Diabetes mellitus Code(s): E11.9 - TYPE 2 DIABETES MELLITUS WITHOUT COMPLICATIONS Qualifiers: Diabetes mellitus type: type 2 Diabetes mellitus complication status: without complication 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 ON HOLD FOR NOW DVT PROPHYLAXIS NEUROLOGY AND ONCOLOGY F/U APPRECIATED MONITOR LABS [facility]
[2017-06-13] MEDS ORDERED: PT OWN MED DRAWER 7, Y5N ONE (09:20)
--- NOTE | 2017-06-13 09:37 | PN ---
Progress Note (short form) - Note Progress Note: Patient seen and examined in the ICU. Poorly responsive. No documented seizure overnight. MRA/MRI noted. There is an acute component of his bleed. There is some consideration for AC. Intake & Output 06/10/17 06/11/17 06/12/17 06/13/17 23:59 23:59 23:59 23:59 Intake Total 3020 950 410 130 Output Total 325 Balance 2695 950 410 130 Weight 183 lb 3.2 oz 179 lb 2 oz 180 lb 8 oz 178 lb 5 oz Last Vital Signs Temp Pulse Resp BP Pulse Ox 98 F 112 H 21 148/82 98 06/13/17 06:00 06/13/17 08:00 06/13/17 09:00 06/13/17 08:00 06/13/17 09:00 Active Medications Acetaminophen (Tylenol -) 650 mg PO Q4H PRN PRN Reason: FEVER OR PAIN Last Admin: 06/10/17 21:17 Dose: 650 mg Amlodipine Besylate (Norvasc -) 5 mg PO DAILY [facility] Last Admin: 06/12/17 09:52 Dose: Not Given Atorvastatin Calcium (Lipitor -) 20 mg PO HS [facility] Last Admin: 06/12/17 22:49 Dose: Not Given Duloxetine HCl (Cymbalta -) 60 mg PO DAILY [facility] Last Admin: 06/12/17 09:52 Dose: Not Given Labetalol HCl 1,000 mg/ (Dextrose) 1,000 mls @ 30 mls/hr IV TITR [facility]; 0.5 MG/ MIN PRN Reason: Protocol Last Titration: 06/13/17 00:00 Dose: 0 mg/min Isosorbide Mononitrate (Imdur -) 60 mg PO DAILY [facility] Last Admin: 06/12/17 10:34 Dose: Not Given Lacosamide (Vimpat -) 100 mg PO DAILY@0800 [facility] Last Admin: 06/12/17 09:52 Dose: Not Given Levetiracetam (Keppra Injection -) 1,000 mg IVPB BID [facility] Last Admin: 06/12/17 22:48 Dose: 1,000 mg Levothyroxine Sodium (Synthroid -) 50 mcg PO DAILY@0700 [facility] Last Admin: 06/13/17 06:43 Dose: Not Given Lorazepam (Ativan Injection -) 1 mg IM ONCE PRN PRN Reason: ANXIETY Last Admin: 06/12/17 22:57 Dose: 1 mg Lorazepam (Ativan Injection -) 1 mg IVPUSH ONCE ONE Stop: 06/13/17 20:01 Losartan Potassium (Cozaar -) 50 mg PO DAILY [facility] Last Admin: 06/12/17 10:34 Dose: Not Given Magnesium Oxide (Mag-Ox -) 800 mg PO HS [facility] Last Admin: 06/12/17 22:49 Dose: Not Given Metformin HCl (Glucophage -) 500 mg PO BIDI [facility] Last Admin: 06/13/17 06:43 Dose: Not Given Metoprolol Succinate (Toprol Xl -) 100 mg PO HS [facility] Last Admin: 06/12/17 22:49 Dose: Not Given Metoprolol Tartrate (Lopressor Injection -) 5 mg IVPUSH Q8H PRN Last Admin: 06/12/17 16:30 Dose: 5 mg Metoprolol Tartrate (Lopressor Injection -) 10 mg IVPUSH Q8H PRN Last Admin: 06/12/17 11:20 Dose: 10 mg Oxycodone HCl (Roxicodone -) 5 mg PO Q3H PRN PRN Reason: MODERATE PAIN Last Admin: 06/11/17 08:51 Dose: 5 mg Pantoprazole Sodium (Protonix -) 40 mg PO DAILY [facility] Last Admin: 06/12/17 09:52 Dose: Not Given Sitagliptin Phosphate (Januvia -) 25 mg PO HS [facility] Last Admin: 06/12/17 22:49 Dose: Not Given Gen: Poorly responsive, Mildly tachypneic at rest on VM O2 Heart: Tachycardia Lung: decreased breath sounds at the bases Abd: soft, ND Ext: no edema Laboratory Results - last 24 hr 06/09/17 06/13/17 17:05 05:00 Sodium 132 L Potassium 3.5 Chloride 95 L Carbon Dioxide 25 Anion Gap 12 BUN 19 H Creatinine 1.0 Random Glucose 152 H Calcium 9.6 Phosphorus 3.7 D Magnesium 1.9 Blood Type O POSITIVE Antibody Screen Negative ASSESSMENT AND PLAN: Recurrent Seizure Subdural Hematoma s/p Craniotomy/Hematoma Evacuation h/o CVA Atrial Fibrillation HTN DM CAD Hypothyroidism Asthma - neuro checks - Rate control - BD TX PRN - DVT prophylaxis - Will need to discuss further with team Risk vs Benefit of AC in this setting - continue ICU monitoring Dr Crystal Critical care time spent in reviewing chart, evaluating patient and formulating plan - 35 minutes
[2017-06-13] MEDS: amLODIPine BESYLATE 5 MG TABLET (FP) PO SCH (10:36)
[2017-06-13] MEDS: ISOSORBIDE MONONITRATE 60 MG TAB.SR.24H (FP) PO SCH (10:36)
[2017-06-13] MEDS: LOSARTAN POTASSIUM 50 MG TABLET (FP) PO SCH (10:36)
[2017-06-13] MEDS: DULoxetine HCL 30 MG CAPSULE.DR (FP) PO SCH (10:36)
[2017-06-13] MEDS: PANTOPRAZOLE 40 MG TABLET (FP) PO SCH (10:37)
[2017-06-13] MEDS: LACOSAMIDE 50 MG TABLET PO SCH (10:37)
[2017-06-13] MEDS: levETIRAcetam 500 MG/5 ML INJECTION VIAL IVPB SCH ×2 (10:41→23:39)
--- NOTE | 2017-06-13 12:41 | PN ---
Progress Note (short form) - Note Progress Note: Neurology History of Present Illness The patient is a 71 year old female, with a significant past medical history of Asthma, CVA (minimal R sided weakness), partial seizures, Atrial Fibrillation ( on Coumadin), CAD, HTN, HLD, Diabetes and Hypothyroidism, who presented to the emergency department for abnormal CT head findings. Apparently, the patient had suffered head trauma approximately 2 weeks prior to admission while fixing a folding chair and denied hitting her head again. 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 NSGY , Dr. Ramirez consulted, and completed surgical intervention with craniotomy and evacuation with patient placed in ICU under close monitoring. On 06/12, I was consulted as the patient had a seizure in the ICU with L facial twitching. I had spoke to the resident. She was already on Keppra 750mg twice daily, recommended increase to 1000mg twice daily. EEG also ordered, however due to surgical craniatomy, tech not able to complete. MRI brain completed and reviewed , DWI and ADC sequence show ischemic region juxaposed to location of R subdural hematoma and overnight spoke to resident regarding next steps. AC considered but with active blood products there is concern regarding bleeding and NSGY involved and open to AC if needed. Family hesitant given risk and AC plan on hold for now. No seizures over night or this morning. Active Medications Acetaminophen (Tylenol -) 650 mg PO Q4H PRN PRN Reason: FEVER OR PAIN Last Admin: 06/10/17 21:17 Dose: 650 mg Amlodipine Besylate (Norvasc -) 5 mg PO DAILY [facility] Last Admin: 06/13/17 10:36 Dose: Not Given Atorvastatin Calcium (Lipitor -) 20 mg PO HS [facility] Last Admin: 06/12/17 22:49 Dose: Not Given Duloxetine HCl (Cymbalta -) 60 mg PO DAILY [facility] Last Admin: 06/13/17 10:36 Dose: Not Given Labetalol HCl 1,000 mg/ (Dextrose) 1,000 mls @ 30 mls/hr IV TITR [facility]; 0.5 MG/ MIN PRN Reason: Protocol Last Titration: 06/13/17 10:00 Dose: 0.5 mg/min Isosorbide Mononitrate (Imdur -) 60 mg PO DAILY [facility] Last Admin: 06/13/17 10:36 Dose: Not Given Lacosamide (Vimpat -) 100 mg PO DAILY@0800 [facility] Last Admin: 06/13/17 10:37 Dose: Not Given Levetiracetam (Keppra Injection -) 1,000 mg IVPB BID [facility] Last Admin: 06/13/17 10:41 Dose: 1,000 mg Levothyroxine Sodium (Synthroid -) 50 mcg PO DAILY@0700 [facility] Last Admin: 06/13/17 06:43 Dose: Not Given Lorazepam (Ativan Injection -) 1 mg IM ONCE PRN PRN Reason: ANXIETY Last Admin: 06/12/17 22:57 Dose: 1 mg Lorazepam (Ativan Injection -) 1 mg IVPUSH ONCE ONE Stop: 06/13/17 20:01 Losartan Potassium (Cozaar -) 50 mg PO DAILY [facility] Last Admin: 06/13/17 10:36 Dose: Not Given Magnesium Oxide (Mag-Ox -) 800 mg PO [facility] Last Admin: 06/12/17 22:49 Dose: Not Given Metformin HCl (Glucophage -) 500 mg PO BIDI [facility] Last Admin: 06/13/17 06:43 Dose: Not Given Metoprolol Succinate (Toprol Xl -) 100 mg PO [facility] Last Admin: 06/12/17 22:49 Dose: Not Given Metoprolol Tartrate (Lopressor Injection -) 5 mg IVPUSH Q8H PRN Last Admin: 06/12/17 16:30 Dose: 5 mg Metoprolol Tartrate (Lopressor Injection -) 10 mg IVPUSH Q8H PRN Last Admin: 06/12/17 11:20 Dose: 10 mg Oxycodone HCl (Roxicodone -) 5 mg PO Q3H PRN PRN Reason: MODERATE PAIN Last Admin: 06/11/17 08:51 Dose: 5 mg Pantoprazole Sodium (Protonix -) 40 mg PO DAILY [facility] Last Admin: 06/13/17 10:37 Dose: Not Given Sitagliptin Phosphate (Januvia -) 25 mg PO [facility] Last Admin: 06/12/17 22:49 Dose: Not Given *Physical Exam Vital Signs Period Temp Pulse Resp BP Sys/Becerra Pulse Ox Last 24 Hr 97.8 F-99.6 F 95-115 19-23 114-183/71-99 98-100 GENERAL: The patient is asleep but arousable, in NAD, comfortable appearing, following minimal commands HEAD: S/P surgical intervention EYES: Pupils equal, round and reactive to light, extraocular movements intact, sclera anicteric, conjunctiva clear with no pallor. ENT: Ears normal, nares patent, oropharynx clear without exudates. Moist mucous membranes. LUNGS: Breath sounds equal, clear to auscultation bilaterally. No wheeze/ crackles. HEART: Regular rate and rhythm, normal S1 and S2 without murmur or rub. ABDOMEN: Soft/nontender/nondistended. BS wnl. No guarding or rebound. No palpable masses. No hepatosplenomegaly. EXTREMITIES: No edema. No clubbing or cyanosis. No cords, erythema, or tenderness. NEUROLOGICAL: Limited exam, Cranial nerves II through XII grossly intact, not able to participate in confrontation testing but appears to move ext, unclear exam strength, responds to tactile simulation SKIN: Warm, Dry, normal turgor, no rashes or lesions noted. CBCD WBC 15.6 K/mm3 (4.0-10.0) H D 06/12/17 05:15 RBC 3.92 M/mm3 (3.60-5.2) 06/12/17 05:15 Hgb 10.5 GM/dL (10.7-15.3) L 06/12/17 05:15 Hct 31.3 % (32.4-45.2) L 06/12/17 05:15 MCV 79.8 fl (80-96) L 06/12/17 05:15 MCHC 33.6 g/dl (32.0-36.0) 06/12/17 05:15 RDW 15.5 % (11.6-15.6) 06/12/17 05:15 Plt Count 276 K/MM3 (134-434) 06/12/17 05:15 MPV 8.9 fl (7.5-11.1) 06/12/17 05:15 CMP Sodium 132 mmol/L (136-145) L 06/13/17 05:00 Potassium 3.5 mmol/L (3.5-5.1) 06/13/17 05:00 Chloride 95 mmol/L (98-107) L 06/13/17 05:00 Carbon Dioxide 25 mmol/L (21-32) 06/13/17 05:00 Anion Gap 12 (8-16) 06/13/17 05:00 BUN 19 mg/dL (7-18) H 06/13/17 05:00 Creatinine 1.0 mg/dL (0.55-1.02) 06/13/17 05:00 Creat Clearance w eGFR 48.69 (>60) 06/12/17 05:15 Random Glucose 152 mg/dL (74-106) H 06/13/17 05:00 Calcium 9.6 mg/dL (8.5-10.1) 06/13/17 05:00 Total Bilirubin 1.0 mg/dL (0.2-1.0) 06/12/17 05:15 AST 15 U/L (15-37) 06/12/17 05:15 ALT 16 U/L (12-78) 06/12/17 05:15 Alkaline Phosphatase 133 U/L (45-117) H 06/12/17 05:15 Total Protein 7.2 g/dl (6.4-8.2) 06/12/17 05:15 Albumin 3.3 g/dl (3.4-5.0) L 06/12/17 05:15 CARDIAC ENZYMES Creatine Kinase 102 IU/L (26-192) 06/09/17 17:05 Troponin I < 0.02 ng/ml (0.00-0.05) 06/09/17 17:05 - RADIOLOGY CT head reviewed MRI brain reviewed Plan: 71 year old female, with a significant past medical history of Asthma, CVA ( minimal R sided weakness), partial seizures, Atrial Fibrillation (on Coumadin), CAD, HTN, HLD, Diabetes and Hypothyroidism, who presented to the emergency department for abnormal CT head findings. Apparently, the patient had suffered head trauma approximately 2 weeks prior to admission while fixing a folding chair and denied hitting her head again. 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 NSGY, Dr. Ramirez consulted, and completed surgical intervention with craniotomy and evacuation. On 06/12, I was consulted as the patient had a seizure in the ICU with L facial twitching. I had spoke to the resident. She was already on Keppra 750mg twice daily, recommended increase to 1000mg twice daily. EEG also ordered , however due to surgical craniatomy, tech not able to complete. -MRI brain reviewed, acute ishemic changes in R parietal/temporal region -AC being consider but with recent surgery and bleed risk, on hold -NSGY to weigh in on safety of AC s/p surgical intervention -Has not needed Ativan -On Keppra 1000mg bid -There is room to increase Keppra to 1250 twice a day and even 1500mg twice daily but stable at 1000mg for now -[facility] Blood pressure control, avoid hypertensive episodes -Neuro checks Q2hrs -Defer on EEG for now -Monitor mental status -Afib, rate control -Strict avoidance of head trauma -DVT ppx -Critical care time 45 mins
--- NOTE | 2017-06-13 13:44 | PN ---
Progress Note (short form) - Note Progress Note: Hematology/Oncology follow-up Note S- patient with right arm involuntary movements, per daughter at bedside, she is comfortable and following simple commands, unable to move left side of her body Last Vital Signs Temp Pulse Resp BP Pulse Ox 99.6 F 108 H 23 145/86 99 06/13/17 10:00 06/13/17 12:00 06/13/17 12:00 06/13/17 12:00 06/13/17 11:39 Physical Exam Patient seen and examined Currently sedated Cor: atrial fib with rapid ventricular response Lungs: decreased breath sounds bilaterally Abd: Soft, Normal bowel sounds, No organomegaly Ext:No significant edema, SDS Skin: No rashes, Integument intact CBC, BMP 06/12/17 05:15 06/13/17 05:00 A/P : 71 y/opatient with HTn, DM, CAD, Afib on coumadin, h/o CVA, comes in with subdural hematoma s/p evacuation, with seizures post evacuation and right parieto/temporal ischemic changes -Mx of AC per neurology and neurosurgery -will continue to follow -daughter at bedside on board with her current medical plan of care
[2017-06-13] MEDS ORDERED: LORazepam 2 MG/ML SDV VIAL ONE ×2 (14:13→15:46)
[2017-06-13] MEDS: LEVETIRACETAM IVPB SCH ×2 (14:15→16:27)
[2017-06-13] MEDS: SODIUM CHLORIDE IVPB SCH ×2 (14:15→16:27)
[2017-06-13] MEDS: LORazepam 2 MG/ML SDV VIAL IVPUSH PRN ×5 (14:15→20:30)
[2017-06-13] MEDS ORDERED: levETIRAcetam 500 MG/5 ML INJECTION VIAL IVPB ONE (14:26)
[2017-06-13] MEDS ORDERED: levETIRAcetam 500 MG/5 ML INJECTION VIAL IVPB SCH ×2 (16:30)
[2017-06-13] MEDS ORDERED: FOSPHENYTOIN SODIUM 1,500 MG in SODIUM CHLORIDE 100 ML IVPB ONE ×2 (20:35→21:00)
[2017-06-13] MEDS ORDERED: PROPOFOL 200 MG/20 ML VIAL IVPUSH ONE (21:49)
[2017-06-13] MEDS ORDERED: ROCURONIUM BROMIDE 50 MG/5 ML VIAL IV ONE (21:50)
[2017-06-13 22:02] LABS: MCH 26.3 pg (25.7-33.7); MCHC 33.5 g/dl (32.0-36.0); MEAN CELL VOLUME 78.5 fl (80-96); MEAN PLT VOLUME 7.8 fl (7.5-11.1); PLATELET COUNT 224 K/MM3 (134-434); RDW 15.6 % (11.6-15.6); WHITE BLOOD COUNT 9.9 K/mm3 (4.0-10.0)
--- NOTE | 2017-06-13 22:17 | PN ---
Progress Note (short form) - Note Progress Note: Called bedside by RN for seizure activity. Facial twitching and right hand movements Ativan 2mg x1 given. Patient with continued seizure activity Patient with fever 101 Blood cultures and CBC sent Fosphenytoin load and dilantin started Patient with increased WOB and inability to protect airway requiring endotracheal intubation 8.0 ETT T 22CM Tolerated well without complication a/p: 71 yo woman with Recurrent Seizures, Subdural Hematoma s/p Craniotomy/ Hematoma Evacuation -Intubation for airway protection -STAT cultures -low threshold for ABX: cefepime/vanco for [employer] penetration -STAT head CT -placed spence and OG tube -Neurology called -cont AEDs: lacosamide, keppra and dilantin, check levels -sedation w/ propofol for quick on and off for neuro checks Brigid ACNP Pulm/CCM CCT: 35m
--- NOTE | 2017-06-13 22:19 | PROC ---
Intubation - Intubation Reason for Intubation: Airway Protection Intubation Method: orotracheal Blade used: Mac (3) Tube Size (cm): 8.0 Tube position @ lip (cm): 22 Tube position confirmed by: Direct visualization, CO2 detector, Breath sounds Breath Sounds after Intubation: equal Post Intubation Xray: Yes Remarks: Sedated with propofol 80mg Rocuronium 50mg x1 Grade 1 view Easy intubation Tolerated well w/o complication
[2017-06-13] MEDS ORDERED: ACETAMINOPHEN 1000 MG/100 ML VIAL (NON FORMULARY) IVPB ONE (23:12)
[2017-06-13] MEDS: PROPOFOL 100 ML IVPB SCH (23:37)
[2017-06-13] MEDS: sitaGLIPtin PHOSPHATE 25 MG TABLET (FP) PO SCH (23:38)
[2017-06-13] MEDS: ATORVASTATIN CA 20 MG TABLET (FP) PO SCH (23:39)
[2017-06-13] MEDS: METOPROLOL SUCCINATE 100 MG TAB.SR.24H (FP) PO SCH (23:39)
[2017-06-13] MEDS: MAGNESIUM OXIDE 400 MG TABLET (FP) PO SCH (23:39)
[2017-06-14] MEDS: LORazepam 2 MG/ML SDV VIAL IVPUSH PRN ×7 (04:36→20:06)
[2017-06-14 05:51] LABS: ALLENS TEST POSITIVE; ART PUNCT SITE RIGHT RADIAL; ARTERIAL BLD GAS O2 SATURATION 98.9 % (90-98.9); ARTERIAL BLOOD GAS BASE EXCESS 2.8 meq/l (-2-2); LPM/O2% 60%; MECH. VENT. YES; PT. ON O2? YES; TYPE OF O2 MECH VENT; VENT RATE 18; VT/PRESS 400
[2017-06-14 05:52] LABS: ARTERIAL BLOOD GAS pH 7.52 (7.35-7.45)
[2017-06-14 05:55] LABS: MCHC 32.7 g/dl (32.0-36.0); MEAN CELL VOLUME 79.7 fl (80-96); MEAN PLT VOLUME 8.7 fl (7.5-11.1); PLATELET COUNT 223 K/MM3 (134-434); RDW 15.8 % (11.6-15.6)
[2017-06-14] MEDS: LEVOTHYROXINE NA 50 MCG TABLET (FP) PO SCH (06:20)
[2017-06-14] MEDS: PHENYTOIN SODIUM 100 MG/2 ML VIAL IVPB SCH ×3 (06:20→21:25)
[2017-06-14] MEDS: metFORMIN HCL 500 MG TABLET (FP) PO SCH ×2 (06:21→17:39)
[2017-06-14 07:02] LABS: CREATININE 1.1 mg/dL (0.55-1.02); SGOT/AST 15 U/L (15-37)
[2017-06-14 07:11] LABS: ALBUMIN 3.1 g/dl (3.4-5.0); ALK PHOS 126 U/L (45-117); ANION GAP 17 (8-16); BILIRUBIN,TOTAL 0.8 mg/dL (0.2-1.0); CALCIUM 9.4 mg/dL (8.5-10.1); CO2 24 mmol/L (21-32); GLUCOSE,RANDOM 173 mg/dL (74-106); SGPT/ALT 15 U/L (12-78); TOT PROT 7.1 g/dl (6.4-8.2)
[2017-06-14] MEDS: levETIRAcetam 500 MG/5 ML INJECTION VIAL IVPB SCH ×2 (09:05→21:27)
--- NOTE | 2017-06-14 09:52 | PN ---
Progress Note (short form) - Note Progress Note: Patient seen and examined in the ICU. Decompensated overnight and required intubation. Sedated on propofol. No pressors. Daughter at the bedside. Intake & Output 06/11/17 06/12/17 06/13/17 06/14/17 23:59 23:59 23:59 23:59 Intake Total 950 410 615 190 Output Total 100 500 Balance 950 410 515 -310 Weight 179 lb 2 oz 180 lb 8 oz 178 lb 5 oz 183 lb 6.4 oz Last Vital Signs Temp Pulse Resp BP Pulse Ox 100 F H 102 H 13 119/81 100 06/14/17 08:53 06/14/17 08:53 06/14/17 08:53 06/14/17 08:53 06/14/17 08:33 Active Medications Acetaminophen (Tylenol -) 650 mg PO Q4H PRN PRN Reason: FEVER OR PAIN Last Admin: 06/10/17 21:17 Dose: 650 mg Acetaminophen (Tylenol Oral Solution -) 650 mg PO Q6H PRN PRN Reason: FEVER OR PAIN Amlodipine Besylate (Norvasc -) 5 mg PO DAILY [facility] Last Admin: 06/13/17 10:36 Dose: Not Given Atorvastatin Calcium (Lipitor -) 20 mg PO HS [facility] Last Admin: 06/13/17 23:39 Dose: Not Given Duloxetine HCl (Cymbalta -) 60 mg PO DAILY [facility] Last Admin: 06/13/17 10:36 Dose: Not Given Labetalol HCl 1,000 mg/ (Dextrose) 1,000 mls @ 30 mls/hr IV TITR [facility]; 0.5 MG/ MIN PRN Reason: Protocol Last Titration: 06/13/17 15:00 Dose: 0 mg/min Propofol (Diprivan -) 100 mls @ 4.853 mls/hr IVPB TITR [facility]; 10 MCG/KG/MIN PRN Reason: Protocol Last Admin: 06/13/17 23:37 Dose: 4.853 mls/hr Pantoprazole Sodium 40 mg/ (Sodium Chloride) 100 mls @ 200 mls/hr IVPB DAILY [facility] Isosorbide Mononitrate (Imdur -) 60 mg PO DAILY [facility] Last Admin: 06/13/17 10:36 Dose: Not Given Lacosamide (Vimpat -) 100 mg PO DAILY@0800 [facility] Last Admin: 06/13/17 10:37 Dose: Not Given Levetiracetam (Keppra Injection -) 1,250 mg IVPB BID [facility] Last Admin: 06/14/17 09:05 Dose: 1,250 mg Levothyroxine Sodium (Synthroid -) 50 mcg PO DAILY@0700 [facility] Last Admin: 06/14/17 06:20 Dose: 50 mcg Lorazepam (Ativan Injection -) 1 mg IVPUSH PRN PRN PRN Reason: WITHDRAWAL(CONT SUBST) Stop: 06/15/17 15:55 Last Admin: 06/13/17 18:30 Dose: 1 mg Lorazepam (Ativan Injection -) 2 mg IVPUSH Q1H PRN PRN Reason: seizure Last Admin: 06/14/17 08:45 Dose: 2 mg Losartan Potassium (Cozaar -) 50 mg PO DAILY [facility] Last Admin: 06/13/17 10:36 Dose: Not Given Magnesium Oxide (Mag-Ox -) 800 mg PO [facility] Last Admin: 06/13/17 23:39 Dose: Not Given Metformin HCl (Glucophage -) 500 mg PO BIDI [facility] Last Admin: 06/14/17 06:21 Dose: Not Given Metoprolol Succinate (Toprol Xl -) 100 mg PO [facility] Last Admin: 06/13/17 23:39 Dose: Not Given Metoprolol Tartrate (Lopressor Injection -) 5 mg IVPUSH Q8H PRN Last Admin: 06/12/17 16:30 Dose: 5 mg Metoprolol Tartrate (Lopressor Injection -) 10 mg IVPUSH Q8H PRN Last Admin: 06/12/17 11:20 Dose: 10 mg Phenytoin Sodium (Dilantin Injection -) 100 mg IVPB TID [facility] Last Admin: 06/14/17 06:20 Dose: 100 mg Sitagliptin Phosphate (Januvia -) 25 mg PO [facility] Last Admin: 06/13/17 23:38 Dose: Not Given Valproate Sodium (Depacon Injection -) 750 mg IV BID [facility] Gen: Vented, poorly responsive Heart: Tachycardia, irregular Lung: decreased breath sounds at the bases Abd: soft, ND Ext: no edema Laboratory Results - last 24 hr 06/12/17 06/12/17 06/12/17 05:54 17:14 23:03 WBC RBC Hgb Hct MCV MCH MCHC RDW Plt Count MPV Puncture Site ABG pH ABG pCO2 at Pt Temp ABG pO2 at Pt Temp ABG HCO3 ABG O2 Sat (Measured) ABG O2 Content ABG Base Excess Bright Test O2 Delivery Device Oxygen Flow Rate Vent Mode Vent Rate Mechanical Rate PEEP Pressure Support Vent Sodium Potassium Chloride Carbon Dioxide Anion Gap BUN Creatinine Creat Clearance w eGFR POC Glucometer 165.60629 167.19498 173.95652 Random Glucose Calcium Total Bilirubin AST ALT Alkaline Phosphatase Total Protein Albumin Phenytoin 06/13/17 06/13/17 06/14/17 13:50 21:45 00:11 WBC 9.9 D RBC 3.56 L Hgb 9.4 L D Hct 27.9 L MCV 78.5 L MCH 26.3 MCHC 33.5 RDW 15.6 Plt Count 224 MPV 7.8 D Puncture Site ABG pH ABG pCO2 at Pt Temp ABG pO2 at Pt Temp ABG HCO3 ABG O2 Sat (Measured) ABG O2 Content ABG Base Excess Bright Test O2 Delivery Device Oxygen Flow Rate Vent Mode Vent Rate Mechanical Rate PEEP Pressure Support Vent Sodium Potassium Chloride Carbon Dioxide Anion Gap BUN Creatinine Creat Clearance w eGFR POC Glucometer 175.69640 176.58107 Random Glucose Calcium Total Bilirubin AST ALT Alkaline Phosphatase Total Protein Albumin Phenytoin 06/14/17 06/14/17 06/14/17 05:00 05:00 05:00 WBC 12.0 H RBC 3.95 Hgb 10.3 L Hct 31.5 L MCV 79.7 L MCH 26.0 MCHC 32.7 RDW 15.8 H Plt Count 223 MPV 8.7 D Puncture Site ABG pH ABG pCO2 at Pt Temp ABG pO2 at Pt Temp ABG HCO3 ABG O2 Sat (Measured) ABG O2 Content ABG Base Excess Bright Test O2 Delivery Device Oxygen Flow Rate Vent Mode Vent Rate Mechanical Rate PEEP Pressure Support Vent Sodium 136 Potassium 3.7 Chloride 95 L Carbon Dioxide 24 Anion Gap 17 H BUN 22 H Creatinine 1.1 H Creat Clearance w eGFR 48.69 POC Glucometer Random Glucose 173 H Calcium 9.4 Total Bilirubin 0.8 AST 15 ALT 15 Alkaline Phosphatase 126 H Total Protein 7.1 Albumin 3.1 L Phenytoin 18.7 06/14/17 05:41 WBC RBC Hgb Hct MCV MCH MCHC RDW Plt Count MPV Puncture Site Right radial ABG pH 7.52 H ABG pCO2 at Pt Temp 30.7 L ABG pO2 at Pt Temp 119.0 H ABG HCO3 25.0 ABG O2 Sat (Measured) 98.9 ABG O2 Content 14.0 L ABG Base Excess 2.8 H Bright Test Positive O2 Delivery Device Mech vent Oxygen Flow Rate 60% Vent Mode A/c Vent Rate 18 Mechanical Rate Yes PEEP 5.0 Pressure Support Vent 400 Sodium Potassium Chloride Carbon Dioxide Anion Gap BUN Creatinine Creat Clearance w eGFR POC Glucometer Random Glucose Calcium Total Bilirubin AST ALT Alkaline Phosphatase Total Protein Albumin Phenytoin ASSESSMENT AND PLAN: Acute Respiratory Failure Recurrent Seizure Subdural Hematoma s/p Craniotomy/Hematoma Evacuation h/o CVA Atrial Fibrillation HTN DM CAD Hypothyroidism Asthma - Sedation vacation to assess neuro checks - Rate control - BD TX PRN - DVT prophylaxis - Long discussion with daughter. She had a discussion with her mother about 1 year ago about advanced directives. Her mother was very clear that she would not want a Trach or feeding tube. Patient will be made DNR and will have further discussions for compassionate extubation. Dr Crystal Critical care time spent in reviewing chart, evaluating patient and formulating plan - 35 minutes
[2017-06-14] MEDS ORDERED: VALPROATE SODIUM 500 MG/5 ML VIAL IV SCH (10:00)
[2017-06-14] MEDS: PROPOFOL 100 ML IVPB SCH ×3 (10:00→21:27)
[2017-06-14] MEDS: ISOSORBIDE MONONITRATE 60 MG TAB.SR.24H (FP) PO SCH (10:23)
[2017-06-14] MEDS: DULoxetine HCL 30 MG CAPSULE.DR (FP) PO SCH (10:23)
[2017-06-14] MEDS: LOSARTAN POTASSIUM 50 MG TABLET (FP) PO SCH (10:23)
[2017-06-14] MEDS: amLODIPine BESYLATE 5 MG TABLET (FP) PO SCH (10:24)
[2017-06-14] MEDS: LACOSAMIDE 50 MG TABLET PO SCH (10:24)
[2017-06-14] MEDS: PANTOPRAZOLE SODIUM 40 MG in SODIUM CHLORIDE 100 ML IVPB SCH (10:27)
--- NOTE | 2017-06-14 11:37 | PN ---
Progress Note (short form) - Note Progress Note: Neurology History of Present Illness The patient is a 71 year old female, with a significant past medical history of Asthma, CVA (minimal R sided weakness), partial seizures, Atrial Fibrillation ( on Coumadin), CAD, HTN, HLD, Diabetes and Hypothyroidism, who presented to the emergency department for abnormal CT head findings. Apparently, the patient had suffered head trauma approximately 2 weeks prior to admission while fixing a folding chair and denied hitting her head again. 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 NSGY , Dr. Ramirez consulted, and completed surgical intervention with craniotomy and evacuation with patient placed in ICU under close monitoring. On 06/12, patient had a seizure in the ICU with L facial twitching, was already on Keppra 750mg twice daily, recommended increase to 1000mg twice daily. EEG also ordered, however due to surgical craniatomy, tech not able to complete. Had recurrent episodic seizures that were treated with Ativan. Keppra gradually increased to 1250mg twice daily. Phenytoin and Depakene added as well as patient with recurring seizures evening of 06/13. MRI brain completed and reviewed, DWI and ADC sequence show ischemic region juxaposed to location of R subdural hematoma but with active blood products there was concern regarding bleeding and NSGY involved and open to AC if needed. Family hesitant given risk and AC plan on hold for now. MRA showed stenosis of L ICA, mild to moderate given motion artifact. MCA branches with mass effect from SDH. Patient also with respiratory decompensation night of 06/13 and required intubation and mechanical ventilation. On Propofol which would also protect against further seizures. repeat Active Medications Acetaminophen (Tylenol -) 650 mg PO Q4H PRN PRN Reason: FEVER OR PAIN Last Admin: 06/10/17 21:17 Dose: 650 mg Acetaminophen (Tylenol Oral Solution -) 650 mg PO Q6H PRN PRN Reason: FEVER OR PAIN Amlodipine Besylate (Norvasc -) 5 mg PO DAILY [facility] Last Admin: 06/14/17 10:24 Dose: Not Given Atorvastatin Calcium (Lipitor -) 20 mg PO HS [facility] Last Admin: 06/13/17 23:39 Dose: Not Given Duloxetine HCl (Cymbalta -) 60 mg PO DAILY [facility] Last Admin: 06/14/17 10:23 Dose: Not Given Labetalol HCl 1,000 mg/ (Dextrose) 1,000 mls @ 30 mls/hr IV TITR [facility]; 0.5 MG/ MIN PRN Reason: Protocol Last Titration: 06/13/17 15:00 Dose: 0 mg/min Propofol (Diprivan -) 100 mls @ 4.853 mls/hr IVPB TITR [facility]; 10 MCG/KG/MIN PRN Reason: Protocol Last Admin: 06/14/17 10:00 Dose: 10.1 mls/hr Pantoprazole Sodium 40 mg/ (Sodium Chloride) 100 mls @ 200 mls/hr IVPB DAILY [facility] Last Admin: 06/14/17 10:27 Dose: 200 mls/hr Isosorbide Mononitrate (Imdur -) 60 mg PO DAILY [facility] Last Admin: 06/14/17 10:23 Dose: Not Given Lacosamide (Vimpat -) 100 mg PO DAILY@0800 [facility] Last Admin: 06/14/17 10:24 Dose: Not Given Levetiracetam (Keppra Injection -) 1,250 mg IVPB BID [facility] Last Admin: 06/14/17 09:05 Dose: 1,250 mg Levothyroxine Sodium (Synthroid -) 50 mcg PO DAILY@0700 [facility] Last Admin: 06/14/17 06:20 Dose: 50 mcg Lorazepam (Ativan Injection -) 1 mg IVPUSH PRN PRN PRN Reason: WITHDRAWAL(CONT SUBST) Stop: 06/15/17 15:55 Last Admin: 06/13/17 18:30 Dose: 1 mg Lorazepam (Ativan Injection -) 2 mg IVPUSH Q1H PRN PRN Reason: seizure Last Admin: 06/14/17 10:27 Dose: 2 mg Losartan Potassium (Cozaar -) 50 mg PO DAILY [facility] Last Admin: 06/14/17 10:23 Dose: Not Given Magnesium Oxide (Mag-Ox -) 800 mg PO [facility] Last Admin: 06/13/17 23:39 Dose: Not Given Metformin HCl (Glucophage -) 500 mg PO BIDI [facility] Last Admin: 06/14/17 06:21 Dose: Not Given Metoprolol Succinate (Toprol Xl -) 100 mg PO [facility] Last Admin: 06/13/17 23:39 Dose: Not Given Metoprolol Tartrate (Lopressor Injection -) 5 mg IVPUSH Q8H PRN Last Admin: 06/12/17 16:30 Dose: 5 mg Metoprolol Tartrate (Lopressor Injection -) 10 mg IVPUSH Q8H PRN Last Admin: 06/12/17 11:20 Dose: 10 mg Phenytoin Sodium (Dilantin Injection -) 100 mg IVPB TID [facility] Last Admin: 06/14/17 06:20 Dose: 100 mg Sitagliptin Phosphate (Januvia -) 25 mg PO HS [facility] Last Admin: 06/13/17 23:38 Dose: Not Given Valproate Sodium (Depacon Injection -) 750 mg IV BID [facility] Last Admin: 06/14/17 10:24 Dose: 750 mg *Physical Exam Vital Signs Period Temp Pulse Resp BP Sys/Becerra Pulse Ox Last 24 Hr 99.0 F-101 F 102-140 12-24 91-145/64-104 99-100 GENERAL: The patient is sedated, on Propofol, following minimal commands HEAD: S/P surgical intervention EYES: Pupils equal, round and reactive to light, extraocular movements intact, sclera anicteric, conjunctiva clear with no pallor. ENT: Ears normal, nares patent, oropharynx clear without exudates. Moist mucous membranes. LUNGS: Breath sounds equal, clear to auscultation bilaterally. No wheeze/ crackles. HEART: Regular rate and rhythm, normal S1 and S2 without murmur or rub. ABDOMEN: Soft/nontender/nondistended. BS wnl. No guarding or rebound. No palpable masses. No hepatosplenomegaly. EXTREMITIES: No edema. No clubbing or cyanosis. No cords, erythema, or tenderness. NEUROLOGICAL: Limited exam, Cranial nerves II through XII grossly intact, not able to participate in testing, unclear exam strength, responds to pain, Babinski positive b/l SKIN: Warm, Dry, normal turgor, no rashes or lesions noted. CBCD WBC 12.0 K/mm3 (4.0-10.0) H 06/14/17 05:00 RBC 3.95 M/mm3 (3.60-5.2) 06/14/17 05:00 Hgb 10.3 GM/dL (10.7-15.3) L 06/14/17 05:00 Hct 31.5 % (32.4-45.2) L 06/14/17 05:00 MCV 79.7 fl (80-96) L 06/14/17 05:00 MCHC 32.7 g/dl (32.0-36.0) 06/14/17 05:00 RDW 15.8 % (11.6-15.6) H 06/14/17 05:00 Plt Count 223 K/MM3 (134-434) 06/14/17 05:00 MPV 8.7 fl (7.5-11.1) D 06/14/17 05:00 CMP Sodium 136 mmol/L (136-145) 06/14/17 05:00 Potassium 3.7 mmol/L (3.5-5.1) 06/14/17 05:00 Chloride 95 mmol/L (98-107) L 06/14/17 05:00 Carbon Dioxide 24 mmol/L (21-32) 06/14/17 05:00 Anion Gap 17 (8-16) H 06/14/17 05:00 BUN 22 mg/dL (7-18) H 06/14/17 05:00 Creatinine 1.1 mg/dL (0.55-1.02) H 06/14/17 05:00 Creat Clearance w eGFR 48.69 (>60) 06/14/17 05:00 Calcium 9.4 mg/dL (8.5-10.1) 06/14/17 05:00 Total Bilirubin 0.8 mg/dL (0.2-1.0) 06/14/17 05:00 AST 15 U/L (15-37) 06/14/17 05:00 ALT 15 U/L (12-78) 06/14/17 05:00 Alkaline Phosphatase 126 U/L (45-117) H 06/14/17 05:00 Total Protein 7.1 g/dl (6.4-8.2) 06/14/17 05:00 Albumin 3.1 g/dl (3.4-5.0) L 06/14/17 05:00 - RADIOLOGY CT head reviewed MRI brain reviewed Plan: 71 year old female, with a significant past medical history of Asthma, CVA ( minimal R sided weakness), partial seizures, Atrial Fibrillation (on Coumadin), CAD, HTN, HLD, Diabetes and Hypothyroidism, who presented to the emergency department for abnormal CT head findings. Apparently, the patient had suffered head trauma approximately 2 weeks prior to admission while fixing a folding chair and denied hitting her head again. 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 NSGY, Dr. Ramirez consulted, and completed surgical intervention with craniotomy and evacuation. On 06/12, I was consulted as the patient had a seizure in the ICU with L facial twitching. I had spoke to the resident. She was already on Keppra 750mg twice daily, recommended increase to 1000mg twice daily. EEG also ordered , however due to surgical craniatomy, tech not able to complete. Sedated, intubated, on mechanical ventilation at this time -MRI brain reviewed, acute ishemic changes in R parietal/temporal region -MRA reviewed with stenosis mild to moderate of L ICA, MCA branches with edematous mass effect -AC being consider but with recent surgery and bleed risk, on hold -NSGY to weigh in on safety of AC s/p surgical intervention -On Keppra 1250bid, Phenytoin start at 100mg TID, and Depekene at 750mg twice a day, Propofol also protective -Tight Blood pressure control, avoid hypertensive episodes -Neuro checks Q2hrs -Defer on EEG for now -Monitor mental status -Afib, rate control -Strict avoidance of head trauma -DVT ppx -Critical care time 45 mins
--- NOTE | 2017-06-14 13:59 | PN ---
Progress Note, Physician Chief Complaint: INTUBATED EVENTS REVIEWED DAUGHTER BEDSIDE NOW DNR - Current Medication List Current Medications: Active Medications Acetaminophen (Tylenol -) 650 mg PO Q4H PRN PRN Reason: FEVER OR PAIN Last Admin: 06/10/17 21:17 Dose: 650 mg Acetaminophen (Tylenol Oral Solution -) 650 mg PO Q6H PRN PRN Reason: FEVER OR PAIN Amlodipine Besylate (Norvasc -) 5 mg PO DAILY [facility] Last Admin: 06/14/17 10:24 Dose: Not Given Atorvastatin Calcium (Lipitor -) 20 mg PO HS [facility] Last Admin: 06/13/17 23:39 Dose: Not Given Duloxetine HCl (Cymbalta -) 60 mg PO DAILY [facility] Last Admin: 06/14/17 10:23 Dose: Not Given Labetalol HCl 1,000 mg/ (Dextrose) 1,000 mls @ 30 mls/hr IV TITR [facility]; 0.5 MG/ MIN PRN Reason: Protocol Last Titration: 06/13/17 15:00 Dose: 0 mg/min Propofol (Diprivan -) 100 mls @ 4.853 mls/hr IVPB TITR [facility]; 10 MCG/KG/MIN PRN Reason: Protocol Last Admin: 06/14/17 10:00 Dose: 10.1 mls/hr Pantoprazole Sodium 40 mg/ (Sodium Chloride) 100 mls @ 200 mls/hr IVPB DAILY [facility] Last Admin: 06/14/17 10:27 Dose: 200 mls/hr Isosorbide Mononitrate (Imdur -) 60 mg PO DAILY [facility] Last Admin: 06/14/17 10:23 Dose: Not Given Lacosamide (Vimpat -) 100 mg PO DAILY@0800 [facility] Last Admin: 06/14/17 10:24 Dose: Not Given Levetiracetam (Keppra Injection -) 1,250 mg IVPB BID [facility] Last Admin: 06/14/17 09:05 Dose: 1,250 mg Levothyroxine Sodium (Synthroid -) 50 mcg PO DAILY@0700 [facility] Last Admin: 06/14/17 06:20 Dose: 50 mcg Lorazepam (Ativan Injection -) 1 mg IVPUSH PRN PRN PRN Reason: WITHDRAWAL(CONT SUBST) Stop: 06/15/17 15:55 Last Admin: 06/13/17 18:30 Dose: 1 mg Lorazepam (Ativan Injection -) 2 mg IVPUSH Q1H PRN PRN Reason: seizure Last Admin: 06/14/17 12:50 Dose: 2 mg Losartan Potassium (Cozaar -) 50 mg PO DAILY [facility] Last Admin: 06/14/17 10:23 Dose: Not Given Magnesium Oxide (Mag-Ox -) 800 mg PO HS [facility] Last Admin: 06/13/17 23:39 Dose: Not Given Metformin HCl (Glucophage -) 500 mg PO BIDI [facility] Last Admin: 06/14/17 06:21 Dose: Not Given Metoprolol Succinate (Toprol Xl -) 100 mg PO HS [facility] Last Admin: 06/13/17 23:39 Dose: Not Given Metoprolol Tartrate (Lopressor Injection -) 5 mg IVPUSH Q8H PRN Last Admin: 06/12/17 16:30 Dose: 5 mg Metoprolol Tartrate (Lopressor Injection -) 10 mg IVPUSH Q8H PRN Last Admin: 06/12/17 11:20 Dose: 10 mg Phenytoin Sodium (Dilantin Injection -) 100 mg IVPB TID [facility] Last Admin: 06/14/17 13:38 Dose: 100 mg Sitagliptin Phosphate (Januvia -) 25 mg PO HS [facility] Last Admin: 06/13/17 23:38 Dose: Not Given Valproate Sodium (Depacon Injection -) 750 mg IV BID [facility] Last Admin: 06/14/17 10:24 Dose: 750 mg - Objective Vital Signs: Vital Signs Temperature 100.2 F H 06/14/17 10:00 Pulse Rate 108 H 06/14/17 10:02 Respiratory Rate 14 06/14/17 12:06 Blood Pressure 120/88 06/14/17 10:00 O2 Sat by Pulse Oximetry (%) 100 06/14/17 10:02 Constitutional: Yes: Severe Distress Eyes: Yes: Other HENT: Yes: Other Neck: Yes: Other Cardiovascular: Yes: Tachycardia Respiratory: Yes: Mechanically Ventilated, Rhonchi Gastrointestinal: Yes: WNL Genitourinary: Yes: Kang Present Musculoskeletal: Yes: Muscle Weakness Extremities: Yes: Other Edema: Yes Peripheral Pulses WNL: Yes Integumentary: Yes: WNL Wound/Incision: Yes: Clean/Dry Neurological: Yes: Confusion, Pre-Existing Deficit, Weakness ...Motor Strength: LLE, RLE Psychiatric: Yes: Other Labs: CBC, BMP 06/14/17 05:00 06/14/17 05:00 INR, PTT INR 1.19 (0.82-1.09) H 06/11/17 05:00 Problem List - Problems (1) Atrial fibrillation Code(s): I48.91 - UNSPECIFIED ATRIAL FIBRILLATION Qualifiers: Atrial fibrillation type: persistent Qualified Code(s): I48.1 - Persistent atrial fibrillation (2) Heart palpitations Code(s): R00.2 - PALPITATIONS (3) Subdural hematoma Code(s): I62.00 - NONTRAUMATIC SUBDURAL HEMORRHAGE, UNSPECIFIED (4) Supratherapeutic INR Code(s): R79.1 - ABNORMAL COAGULATION PROFILE (5) Asthma Code(s): J45.909 - UNSPECIFIED ASTHMA, UNCOMPLICATED (6) Cerebrovascular accident (CVA) Code(s): I63.9 - CEREBRAL INFARCTION, UNSPECIFIED Qualifiers: CVA mechanism: thrombosis Precerebral and cerebral artery: middle cerebral artery, left (7) Diabetes mellitus Code(s): E11.9 - TYPE 2 DIABETES MELLITUS WITHOUT COMPLICATIONS Qualifiers: Diabetes mellitus type: type 2 Diabetes mellitus complication status: without complication Diabetes mellitus long term acute care registered nurse insulin use: without long term acute care registered nurse use Qualified Code(s): E11.9 - Type 2 diabetes mellitus without complications (8) Seizure Code(s): R56.9 - UNSPECIFIED CONVULSIONS (9) Endotracheally intubated Code(s): Z97.8 - PRESENCE OF OTHER SPECIFIED DEVICES Assessment/Plan DNR NOW FAMILY BEDSIDE RESP SU[facility] WITH [facility] VENT SEIZURE PRECAUTIONS POOR OVER ALL PROGNOSIS
--- NOTE | 2017-06-14 13:59 | PN ---
Progress Note (short form) - Note Progress Note: 71 year old female admitted with traumatic SDH.underwent crainotomy, followed by recurring seizures and required intubation.Known case of CAD,angina pectoris,hypertension,history of CVA with residual right hemiplegia, hypothyoidism,permanent atrial fib.patient had a rebleed and shift on a repeat CT scan. Family has made her a DNR.They are aware of the critical status.She continues to have facial seizures. Active Medications Acetaminophen (Tylenol -) 650 mg PO Q4H PRN PRN Reason: FEVER OR PAIN Last Admin: 06/10/17 21:17 Dose: 650 mg Acetaminophen (Tylenol Oral Solution -) 650 mg PO Q6H PRN PRN Reason: FEVER OR PAIN Amlodipine Besylate (Norvasc -) 5 mg PO DAILY [facility] Last Admin: 06/14/17 10:24 Dose: Not Given Atorvastatin Calcium (Lipitor -) 20 mg PO HS [facility] Last Admin: 06/13/17 23:39 Dose: Not Given Duloxetine HCl (Cymbalta -) 60 mg PO DAILY [facility] Last Admin: 06/14/17 10:23 Dose: Not Given Labetalol HCl 1,000 mg/ (Dextrose) 1,000 mls @ 30 mls/hr IV TITR [facility]; 0.5 MG/ MIN PRN Reason: Protocol Last Titration: 06/13/17 15:00 Dose: 0 mg/min Propofol (Diprivan -) 100 mls @ 4.853 mls/hr IVPB TITR [facility]; 10 MCG/KG/MIN PRN Reason: Protocol Last Admin: 06/14/17 10:00 Dose: 10.1 mls/hr Pantoprazole Sodium 40 mg/ (Sodium Chloride) 100 mls @ 200 mls/hr IVPB DAILY [facility] Last Admin: 06/14/17 10:27 Dose: 200 mls/hr Isosorbide Mononitrate (Imdur -) 60 mg PO DAILY [facility] Last Admin: 06/14/17 10:23 Dose: Not Given Lacosamide (Vimpat -) 100 mg PO DAILY@0800 [facility] Last Admin: 06/14/17 10:24 Dose: Not Given Levetiracetam (Keppra Injection -) 1,250 mg IVPB BID [facility] Last Admin: 06/14/17 09:05 Dose: 1,250 mg Levothyroxine Sodium (Synthroid -) 50 mcg PO DAILY@0700 [facility] Last Admin: 06/14/17 06:20 Dose: 50 mcg Lorazepam (Ativan Injection -) 1 mg IVPUSH PRN PRN PRN Reason: WITHDRAWAL(CONT SUBST) Stop: 06/15/17 15:55 Last Admin: 06/13/17 18:30 Dose: 1 mg Lorazepam (Ativan Injection -) 2 mg IVPUSH Q1H PRN PRN Reason: seizure Last Admin: 06/14/17 12:50 Dose: 2 mg Losartan Potassium (Cozaar -) 50 mg PO DAILY [facility] Last Admin: 06/14/17 10:23 Dose: Not Given Magnesium Oxide (Mag-Ox -) 800 mg PO [facility] Last Admin: 06/13/17 23:39 Dose: Not Given Metformin HCl (Glucophage -) 500 mg PO BIDI [facility] Last Admin: 06/14/17 06:21 Dose: Not Given Metoprolol Succinate (Toprol Xl -) 100 mg PO [facility] Last Admin: 06/13/17 23:39 Dose: Not Given Metoprolol Tartrate (Lopressor Injection -) 5 mg IVPUSH Q8H PRN Last Admin: 06/12/17 16:30 Dose: 5 mg Metoprolol Tartrate (Lopressor Injection -) 10 mg IVPUSH Q8H PRN Last Admin: 06/12/17 11:20 Dose: 10 mg Phenytoin Sodium (Dilantin Injection -) 100 mg IVPB TID [facility] Last Admin: 06/14/17 13:38 Dose: 100 mg Sitagliptin Phosphate (Januvia -) 25 mg PO [facility] Last Admin: 06/13/17 23:38 Dose: Not Given Valproate Sodium (Depacon Injection -) 750 mg IV BID [facility] Last Admin: 06/14/17 10:24 Dose: 750 mg 71 year female intubated, no pallor or cyanosis.Febrile. Vital Signs - 8 hr 06/14/17 06/14/17 06/14/17 07:24 08:33 08:53 Temperature 100 F H Pulse Rate 102 H Respiratory 14 13 13 Rate Blood Pressure 119/81 O2 Sat by Pulse 100 Oximetry (%) 06/14/17 06/14/17 06/14/17 09:00 10:00 10:02 Temperature 100.2 F H Pulse Rate 108 H 108 H Respiratory 16 14 16 Rate Blood Pressure 120/88 O2 Sat by Pulse 100 100 Oximetry (%) 06/14/17 12:06 Temperature Pulse Rate Respiratory 14 Rate Blood Pressure O2 Sat by Pulse Oximetry (%) NECK:No JVD,-ve HJR,carotids 2+,no bruits appreciated. HEART:PMI in the 5th ICS,no heaves or thrills,S1 is variable,S2 is normal. Unable to appreciate a murmur or gallops. LUNG:Clear on auscultation. ABDOMEN:Soft nontender,no organomegaly or palpable masses felt. Extremities:No edema. CBC, BMP 06/14/17 05:00 06/14/17 05:00 Impression: 1.Traumatic SDH with rebleed. 2.Seizures. 3.Atrial fibrillation with rapid vent. response. 4.Febrile stste. 5.H/O seizure disorder related to a previous CVA. 6.CAD,angina pectoris. 7.Hypothyrioidism. 3, Histoty of iron def.anemia. RECOMMENDATIONS: 1.Control of heart rate wih I.V Betablockers or Cardizem. 2.Therapy as outline by by nuerologist,neurosurgeon and inspectors and regulatory officers. 3.F/U BMP and CBC Prognosis; Critical.
[2017-06-14] MEDS: ATORVASTATIN CA 20 MG TABLET (FP) PO SCH (21:26)
[2017-06-14] MEDS: VALPROATE SODIUM 500 MG/5 ML VIAL IV SCH (21:26)
[2017-06-14] MEDS: MAGNESIUM OXIDE 400 MG TABLET (FP) PO SCH (21:26)
[2017-06-15] MEDS: ACETAMINOPHEN 650 MG/20.3 ML ORAL SOLUTION (CUPS) PO PRN ×2 (00:14→21:37)
[2017-06-15] MEDS ORDERED: LABETALOL HCL 5 MG/1 ML (100MG/20 ML VIAL) ONE (00:26)
[2017-06-15] MEDS: METOPROLOL TARTRATE 5 MG/5 ML VIAL IVPUSH PRN (00:32)
[2017-06-15] MEDS: PHENYTOIN SODIUM 100 MG/2 ML VIAL IVPB SCH ×3 (06:22→21:38)
[2017-06-15] MEDS: PROPOFOL 100 ML IVPB SCH ×3 (06:22→21:38)
[2017-06-15] MEDS: LEVOTHYROXINE NA 50 MCG TABLET (FP) PO SCH (06:48)
[2017-06-15] MEDS: LORazepam 2 MG/ML SDV VIAL IVPUSH PRN (07:55)
--- NOTE | 2017-06-15 08:34 | PN ---
Physical Exam: SUBJECTIVE: Patient seen and examined in ICU. Patient is intubated (06/13) on sedation with NGT. Daughter at bedside OBJECTIVE: Vital Signs Period Temp Pulse Resp BP Sys/Becerra Pulse Ox Last 24 Hr 99.2 F-101 F 97-129 12-18 83-159/54-105 95-100 Intake & Output 06/12/17 06/13/17 06/14/17 06/15/17 23:59 23:59 23:59 23:59 Intake Total 084 957 8202.9 35 Output Total 100 1100 1200 Balance 410 515 65.9 -1165 Weight 81.873 kg 80.881 kg 83.189 kg 82.639 kg GENERAL: Intubated, sedated LUNGS: Mechanical ventilation HEART: tachycardic, irregular, no murmur, rub or gallop. ABDOMEN: Soft, ntnd EXTREMITIES: 2+ pulses, warm, well-perfused, no LE edema. CBC, BMP 06/15/17 09:59 06/15/17 09:59 06/14/17 06/14/17 06/15/17 12:02 17:45 05:00 POC Glucometer [id number] [phone] Phenytoin 12.3 D Imaging: CXR 06/15/2017: ETT ~2cm above pablo, left base atelectasis Active Medications Acetaminophen (Tylenol -) 650 mg PO Q4H PRN PRN Reason: FEVER OR PAIN Last Admin: 06/10/17 21:17 Dose: 650 mg Acetaminophen (Tylenol Oral Solution -) 650 mg PO Q6H PRN PRN Reason: FEVER OR PAIN Last Admin: 06/15/17 00:14 Dose: 650 mg Atorvastatin Calcium (Lipitor -) 20 mg PO HS [facility] Last Admin: 06/14/17 21:26 Dose: 20 mg Labetalol HCl 1,000 mg/ (Dextrose) 1,000 mls @ 30 mls/hr IV TITR [facility]; 0.5 MG/ MIN PRN Reason: Protocol Last Titration: 06/13/17 15:00 Dose: 0 mg/min Propofol (Diprivan -) 100 mls @ 4.853 mls/hr IVPB TITR [facility]; 10 MCG/KG/MIN PRN Reason: Protocol Last Admin: 06/15/17 06:22 Dose: 5 mls/hr Pantoprazole Sodium 40 mg/ (Sodium Chloride) 100 mls @ 200 mls/hr IVPB DAILY [facility] Last Admin: 06/14/17 10:27 Dose: 200 mls/hr Levetiracetam (Keppra Injection -) 1,250 mg IVPB BID [facility] Last Admin: 06/14/17 21:27 Dose: 1,250 mg Levothyroxine Sodium (Synthroid -) 50 mcg PO DAILY@0700 [facility] Last Admin: 06/15/17 06:48 Dose: 50 mcg Lorazepam (Ativan Injection -) 1 mg IVPUSH PRN PRN PRN Reason: WITHDRAWAL(CONT SUBST) Stop: 06/15/17 15:55 Last Admin: 06/15/17 07:55 Dose: 1 mg Lorazepam (Ativan Injection -) 2 mg IVPUSH Q1H PRN PRN Reason: seizure Last Admin: 06/14/17 20:06 Dose: 2 mg Magnesium Oxide (Mag-Ox -) 800 mg PO HS [facility] Last Admin: 06/14/17 21:26 Dose: 800 mg Metoprolol Tartrate (Lopressor Injection -) 5 mg IVPUSH Q8H PRN Last Admin: 06/15/17 00:32 Dose: 5 mg Metoprolol Tartrate (Lopressor Injection -) 10 mg IVPUSH Q8H PRN Last Admin: 06/12/17 11:20 Dose: 10 mg Phenytoin Sodium (Dilantin Injection -) 100 mg IVPB TID [facility] Last Admin: 06/15/17 06:22 Dose: 100 mg Valproate Sodium (Depacon Injection -) 1,000 mg IV BID [facility] Last Admin: 06/14/17 21:26 Dose: 1,000 mg ASSESSMENT/PLAN: 71yo woman with PMH of HTN, CAD, DM, hypothyroidism, asthma, Afib, CVA ( residual R sided weakness) c/b seizures, who is POD#5 s/p R craniotomy/ evacuation for SDH and recurrent seizures. Patient was intubated 2 days ago due to acute respiratory failure and remains on propofol sedation. Patient is poorly responsive. Family meeting held this afternoon with Palliative care to discuss compassionate extubation, which family is deciding on when to initiate. Family in agreement to no further blood draws, procedures, or new medications. #Neuro -AEDs per Neurology -Propofol gtt for sedation -Ativan 2mg IVPUSH q1h PRN for seizure -Acetaminophen 650mg PO q6h PRN for fever or pain #Pulm -Continue mechanical ventilation #CV -Metoprolol 5-10mg IVPUSH q8h PRN for rate control #PPX -SCDs for DVT ppx -PPI for GI ppx Dispo: -DNR/DNI -Comfort care, Family considering compassionate extubation -Palliative Care on board d/w with Dr. Bonilla Santiago MD PGY-1 Visit type - Emergency Visit Emergency Visit: No - New Patient This patient is new to me today: No - Critical Care Critical Care patient: Yes Total Critical Care Time (in minutes): 35 Critical Care Statement: The care of this patient involved high complexity decision making to prevent further life threatening deterioration of the patient 's condition and/or to evaluate & treat vital organ system(s) failure or risk of failure.
[2017-06-15] MEDS ORDERED: PT OWN MED DRAWER 7, Y5N ONE (08:57)
[2017-06-15] MEDS: VALPROATE SODIUM 500 MG/5 ML VIAL IV SCH ×2 (09:04→21:38)
[2017-06-15] MEDS: PANTOPRAZOLE SODIUM 40 MG in SODIUM CHLORIDE 100 ML IVPB SCH (09:05)
[2017-06-15] MEDS: levETIRAcetam 500 MG/5 ML INJECTION VIAL IVPB SCH ×2 (09:05→21:38)
[2017-06-15 10:07] LABS: MCH 25.7 pg (25.7-33.7); MCHC 32.2 g/dl (32.0-36.0); MEAN CELL VOLUME 79.7 fl (80-96); MEAN PLT VOLUME 7.9 fl (7.5-11.1); PLATELET COUNT 230 K/MM3 (134-434); RDW 15.5 % (11.6-15.6); WHITE BLOOD COUNT 13.3 K/mm3 (4.0-10.0)
--- NOTE | 2017-06-15 10:27 | PN ---
Progress Note (short form) - Note Progress Note: Neurology History of Present Illness The patient is a 71 year old female, with a significant past medical history of Asthma, CVA (minimal R sided weakness), partial seizures, Atrial Fibrillation ( on Coumadin), CAD, HTN, HLD, Diabetes and Hypothyroidism, who presented to the emergency department for abnormal CT head findings. Apparently, the patient had suffered head trauma approximately 2 weeks prior to admission while fixing a folding chair and denied hitting her head again. 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 NSGY , Dr. Ramirez consulted, and completed surgical intervention with craniotomy and evacuation with patient placed in ICU under close monitoring. On 06/12, patient had a seizure in the ICU with L facial twitching, was already on Keppra 750mg twice daily, recommended increase to 1000mg twice daily. EEG also ordered, however due to surgical craniatomy, tech not able to complete. Had recurrent episodic seizures that were treated with Ativan. Keppra gradually increased to 1250mg twice daily. Phenytoin and Depakene added as well as patient with recurring seizures evening of 06/13. MRI brain completed and reviewed, DWI and ADC sequence show ischemic region juxaposed to location of R subdural hematoma but with active blood products there was concern regarding bleeding and NSGY involved and open to AC if needed. Family hesitant given risk and AC plan on hold for now. MRA showed stenosis of L ICA, mild to moderate given motion artifact. MCA branches with mass effect from SDH. Patient also with respiratory decompensation night of 06/13 and required intubation and mechanical ventilation. Patient with refractory seizures and spoke with screen making technician to have EEG done today and she will place electrodes away from sensitive location of surgical intervention, may have artifact but will attempt to complete. Has been having recurrent seizures despite having Depakene 1000mg twice daily added in addition to Phenytoin 100mg three times daily as well as the Keppra 1250mg twice daily. Likely 2/2 to cerebral irritation from blood product/surgical intervention. Active Medications Acetaminophen (Tylenol -) 650 mg PO Q4H PRN PRN Reason: FEVER OR PAIN Last Admin: 06/10/17 21:17 Dose: 650 mg Acetaminophen (Tylenol Oral Solution -) 650 mg PO Q6H PRN PRN Reason: FEVER OR PAIN Last Admin: 06/15/17 00:14 Dose: 650 mg Atorvastatin Calcium (Lipitor -) 20 mg PO HS [facility] Last Admin: 06/14/17 21:26 Dose: 20 mg Labetalol HCl 1,000 mg/ (Dextrose) 1,000 mls @ 30 mls/hr IV TITR [facility]; 0.5 MG/ MIN PRN Reason: Protocol Last Titration: 06/13/17 15:00 Dose: 0 mg/min Propofol (Diprivan -) 100 mls @ 4.853 mls/hr IVPB TITR [facility]; 10 MCG/KG/MIN PRN Reason: Protocol Last Admin: 06/15/17 06:22 Dose: 5 mls/hr Pantoprazole Sodium 40 mg/ (Sodium Chloride) 100 mls @ 200 mls/hr IVPB DAILY [facility] Last Admin: 06/15/17 09:05 Dose: 200 mls/hr Levetiracetam (Keppra Injection -) 1,250 mg IVPB BID [facility] Last Admin: 06/15/17 09:05 Dose: 1,250 mg Levothyroxine Sodium (Synthroid -) 50 mcg PO DAILY@0700 [facility] Last Admin: 06/15/17 06:48 Dose: 50 mcg Lorazepam (Ativan Injection -) 1 mg IVPUSH PRN PRN PRN Reason: WITHDRAWAL(CONT SUBST) Stop: 06/15/17 15:55 Last Admin: 06/15/17 07:55 Dose: 1 mg Lorazepam (Ativan Injection -) 2 mg IVPUSH Q1H PRN PRN Reason: seizure Last Admin: 06/14/17 20:06 Dose: 2 mg Magnesium Oxide (Mag-Ox -) 800 mg PO HS [facility] Last Admin: 06/14/17 21:26 Dose: 800 mg Metoprolol Tartrate (Lopressor Injection -) 5 mg IVPUSH Q8H PRN Last Admin: 06/15/17 00:32 Dose: 5 mg Metoprolol Tartrate (Lopressor Injection -) 10 mg IVPUSH Q8H PRN Last Admin: 06/12/17 11:20 Dose: 10 mg Phenytoin Sodium (Dilantin Injection -) 100 mg IVPB TID [facility] Last Admin: 06/15/17 06:22 Dose: 100 mg Valproate Sodium (Depacon Injection -) 1,000 mg IV BID [facility] Last Admin: 06/15/17 09:04 Dose: 1,000 mg *Physical Exam Vital Signs Period Temp Pulse Resp BP Sys/Becerra Pulse Ox Last 24 Hr 99.2 F-101 F 97-133 12-22 83-159/54-105 95-99 GENERAL: The patient is sedated, on Propofol, following minimal commands HEAD: S/P surgical intervention EYES: Pupils equal, round and reactive to light, extraocular movements intact, sclera anicteric, conjunctiva clear with no pallor. ENT: Ears normal, nares patent, oropharynx clear without exudates. Moist mucous membranes. LUNGS: Breath sounds equal, clear to auscultation bilaterally. No wheeze/ crackles. HEART: Regular rate and rhythm, normal S1 and S2 without murmur or rub. ABDOMEN: Soft/nontender/nondistended. BS wnl. No guarding or rebound. No palpable masses. No hepatosplenomegaly. EXTREMITIES: No edema. No clubbing or cyanosis. No cords, erythema, or tenderness. NEUROLOGICAL: Limited exam, Cranial nerves II through XII grossly intact, not able to participate in testing, unclear exam strength, responds to pain, Babinski positive b/l SKIN: Warm, Dry, normal turgor, no rashes or lesions noted. CBCD WBC 13.3 K/mm3 (4.0-10.0) H 06/15/17 09:59 RBC 4.08 M/mm3 (3.60-5.2) 06/15/17 09:59 Hgb 10.5 GM/dL (10.7-15.3) L 06/15/17 09:59 Hct 32.5 % (32.4-45.2) 06/15/17 09:59 MCV 79.7 fl (80-96) L 06/15/17 09:59 MCHC 32.2 g/dl (32.0-36.0) 06/15/17 09:59 RDW 15.5 % (11.6-15.6) 06/15/17 09:59 Plt Count 230 K/MM3 (134-434) 06/15/17 09:59 MPV 7.9 fl (7.5-11.1) 06/15/17 09:59 CMP Sodium 136 mmol/L (136-145) 06/14/17 05:00 Potassium 3.7 mmol/L (3.5-5.1) 06/14/17 05:00 Chloride 95 mmol/L (98-107) L 06/14/17 05:00 Carbon Dioxide 24 mmol/L (21-32) 06/14/17 05:00 Anion Gap 17 (8-16) H 06/14/17 05:00 BUN 22 mg/dL (7-18) H 06/14/17 05:00 Creatinine 1.1 mg/dL (0.55-1.02) H 06/14/17 05:00 Creat Clearance w eGFR 48.69 (>60) 06/14/17 05:00 Calcium 9.4 mg/dL (8.5-10.1) 06/14/17 05:00 Total Bilirubin 0.8 mg/dL (0.2-1.0) 06/14/17 05:00 AST 15 U/L (15-37) 06/14/17 05:00 ALT 15 U/L (12-78) 06/14/17 05:00 Alkaline Phosphatase 126 U/L (45-117) H 06/14/17 05:00 Total Protein 7.1 g/dl (6.4-8.2) 06/14/17 05:00 Albumin 3.1 g/dl (3.4-5.0) L 06/14/17 05:00 - RADIOLOGY CT head reviewed MRI brain reviewed Plan: 71 year old female, with a significant past medical history of Asthma, CVA ( minimal R sided weakness), partial seizures, Atrial Fibrillation (on Coumadin), CAD, HTN, HLD, Diabetes and Hypothyroidism, who presented to the emergency department for abnormal CT head findings. Apparently, the patient had suffered head trauma approximately 2 weeks prior to admission while fixing a folding chair and denied hitting her head again. 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 NSGY, Dr. Ramirez consulted, and completed surgical intervention with craniotomy and evacuation. On 06/12, I was consulted as the patient had a seizure in the ICU with L facial twitching. I had spoke to the resident. She was already on Keppra 750mg twice daily, recommended increase to 1000mg twice daily. EEG also ordered , however due to surgical craniatomy, tech not able to complete. Sedated, intubated, on mechanical ventilation at this time -MRI brain reviewed, acute ishemic changes in R parietal/temporal region -MRA reviewed with stenosis mild to moderate of L ICA, MCA branches with edematous mass effect -AC being consider but with recent surgery and bleed risk, on hold -NSGY to weigh in on safety of AC s/p surgical intervention -On Keppra 1250bid, Phenytoin at 100mg TID, and Depekene at 1000mg twice a day, Propofol also protective -Will add topamax 100mg twice daily -Tight Blood pressure control, avoid hypertensive episodes -Neuro checks Q2hrs -Spoke to tech to have EEG done -Monitor mental status -Afib, rate control -Strict avoidance of head trauma -DVT ppx -Critical care time 40 mins
[2017-06-15 10:36] LABS: ALBUMIN 2.8 g/dl (3.4-5.0); ANION GAP 13 (8-16); CALCIUM 8.9 mg/dL (8.5-10.1); CO2 27 mmol/L (21-32); GLUCOSE,RANDOM 149 mg/dL (74-106); SGPT/ALT 18 U/L (12-78)
[2017-06-15 10:39] LABS: ALK PHOS 122 U/L (45-117); BILIRUBIN,TOTAL 0.9 mg/dL (0.2-1.0); CREATININE 0.9 mg/dL (0.55-1.02); SGOT/AST 18 U/L (15-37)
[2017-06-15] MEDS: TOPIRAMATE 100 MG TABLET PO SCH ×2 (12:01→21:37)
[2017-06-15] MEDS: ACETAMINOPHEN 325 MG TABLET (FP) PO PRN (12:02)
--- NOTE | 2017-06-15 12:42 | PN ---
Teaching Attending Note Name of Resident: Corrine Santiago ATTENDING PHYSICIAN STATEMENT I saw and evaluated the patient. I reviewed the resident's note and discussed the case with the resident. I agree with the resident's findings and plan as documented. SUBJECTIVE: Patient seen and examined in the ICU. Remains intubated. Repetitive seizures. Propofol infusing. No pressors. Daughter at the bedside. Intake & Output 06/12/17 06/13/17 06/14/17 06/15/17 23:59 23:59 23:59 23:59 Intake Total 425 557 6078.9 35 Output Total 100 1100 1200 Balance 410 515 65.9 -1165 Weight 180 lb 8 oz 178 lb 5 oz 183 lb 6.4 oz 182 lb 3 oz Last Vital Signs Temp Pulse Resp BP Pulse Ox 100.2 F H 118 H 14 139/85 99 06/15/17 10:00 06/15/17 10:00 06/15/17 10:00 06/15/17 10:00 06/15/17 09:25 Active Medications Acetaminophen (Tylenol -) 650 mg PO Q4H PRN PRN Reason: FEVER OR PAIN Last Admin: 06/15/17 12:02 Dose: 650 mg Acetaminophen (Tylenol Oral Solution -) 650 mg PO Q6H PRN PRN Reason: FEVER OR PAIN Last Admin: 06/15/17 00:14 Dose: 650 mg Atorvastatin Calcium (Lipitor -) 20 mg PO HS [facility] Last Admin: 06/14/17 21:26 Dose: 20 mg Labetalol HCl 1,000 mg/ (Dextrose) 1,000 mls @ 30 mls/hr IV TITR [facility]; 0.5 MG/ MIN PRN Reason: Protocol Last Titration: 06/13/17 15:00 Dose: 0 mg/min Propofol (Diprivan -) 100 mls @ 4.853 mls/hr IVPB TITR [facility]; 10 MCG/KG/MIN PRN Reason: Protocol Last Admin: 06/15/17 06:22 Dose: 5 mls/hr Pantoprazole Sodium 40 mg/ (Sodium Chloride) 100 mls @ 200 mls/hr IVPB DAILY [facility] Last Admin: 06/15/17 09:05 Dose: 200 mls/hr Levetiracetam (Keppra Injection -) 1,250 mg IVPB BID [facility] Last Admin: 06/15/17 09:05 Dose: 1,250 mg Levothyroxine Sodium (Synthroid -) 50 mcg PO DAILY@0700 [facility] Last Admin: 06/15/17 06:48 Dose: 50 mcg Lorazepam (Ativan Injection -) 1 mg IVPUSH PRN PRN PRN Reason: WITHDRAWAL(CONT SUBST) Stop: 06/15/17 15:55 Last Admin: 06/15/17 07:55 Dose: 1 mg Lorazepam (Ativan Injection -) 2 mg IVPUSH Q1H PRN PRN Reason: seizure Last Admin: 06/14/17 20:06 Dose: 2 mg Magnesium Oxide (Mag-Ox -) 800 mg PO HS [facility] Last Admin: 06/14/17 21:26 Dose: 800 mg Metoprolol Tartrate (Lopressor Injection -) 5 mg IVPUSH Q8H PRN Last Admin: 06/15/17 00:32 Dose: 5 mg Metoprolol Tartrate (Lopressor Injection -) 10 mg IVPUSH Q8H PRN Last Admin: 06/12/17 11:20 Dose: 10 mg Phenytoin Sodium (Dilantin Injection -) 100 mg IVPB TID [facility] Last Admin: 06/15/17 06:22 Dose: 100 mg Topiramate (Topamax -) 100 mg PO BID [facility] Last Admin: 06/15/17 12:01 Dose: 100 mg Valproate Sodium (Depacon Injection -) 1,000 mg IV BID [facility] Last Admin: 06/15/17 09:04 Dose: 1,000 mg Gen: Vented, poorly responsive Heart: Tachycardia, irregular Lung: decreased breath sounds at the bases Abd: soft, ND Ext: no edema Laboratory Results - last 24 hr 06/14/17 06/14/17 06/15/17 12:02 17:45 05:00 WBC RBC Hgb Hct MCV MCH MCHC RDW Plt Count MPV Sodium Potassium Chloride Carbon Dioxide Anion Gap BUN Creatinine Creat Clearance w eGFR POC Glucometer 160.24881 168.74181 Random Glucose Calcium Total Bilirubin AST ALT Alkaline Phosphatase Total Protein Albumin Phenytoin 12.3 D 06/15/17 06/15/17 09:59 09:59 WBC 13.3 H RBC 4.08 Hgb 10.5 L Hct 32.5 MCV 79.7 L MCH 25.7 MCHC 32.2 RDW 15.5 Plt Count 230 MPV 7.9 Sodium 141 Potassium 3.5 Chloride 101 Carbon Dioxide 27 Anion Gap 13 BUN 16 D Creatinine 0.9 Creat Clearance w eGFR > 60 POC Glucometer Random Glucose 149 H Calcium 8.9 Total Bilirubin 0.9 AST 18 ALT 18 Alkaline Phosphatase 122 H Total Protein 7.0 Albumin 2.8 L Phenytoin ASSESSMENT AND PLAN: Acute Respiratory Failure Recurrent Seizure Subdural Hematoma s/p Craniotomy/Hematoma Evacuation h/o CVA Atrial Fibrillation HTN DM CAD Hypothyroidism Asthma - Rate control - BD TX PRN - Long discussion with daughter. She had a discussion with her mother about 1 year ago about advanced directives. Her mother was very clear that she would not want a Trach or feeding tube or to be kept alive if she could not go back a good quality of life. Patient is DNR. Likely short term plan for compassionate extubation. Dr Crystal Critical care time spent in reviewing chart, evaluating patient and formulating plan - 35 minutes
--- NOTE | 2017-06-15 20:07 | PN ---
Progress Note, Physician Chief Complaint: family bedside no change events and notes reviewed - Current Medication List Current Medications: Active Medications Acetaminophen (Tylenol -) 650 mg PO Q4H PRN PRN Reason: FEVER OR PAIN Last Admin: 06/15/17 12:02 Dose: 650 mg Acetaminophen (Tylenol Oral Solution -) 650 mg PO Q6H PRN PRN Reason: FEVER OR PAIN Last Admin: 06/15/17 00:14 Dose: 650 mg Atorvastatin Calcium (Lipitor -) 20 mg PO HS [facility] Last Admin: 06/14/17 21:26 Dose: 20 mg Propofol (Diprivan -) 100 mls @ 4.853 mls/hr IVPB TITR [facility]; 10 MCG/KG/MIN PRN Reason: Protocol Last Admin: 06/15/17 16:19 Dose: 5 mls/hr Pantoprazole Sodium 40 mg/ (Sodium Chloride) 100 mls @ 200 mls/hr IVPB DAILY [facility] Last Admin: 06/15/17 09:05 Dose: 200 mls/hr Levetiracetam (Keppra Injection -) 1,250 mg IVPB BID [facility] Last Admin: 06/15/17 09:05 Dose: 1,250 mg Levothyroxine Sodium (Synthroid -) 50 mcg PO DAILY@0700 [facility] Last Admin: 06/15/17 06:48 Dose: 50 mcg Lorazepam (Ativan Injection -) 2 mg IVPUSH Q1H PRN PRN Reason: seizure Last Admin: 06/14/17 20:06 Dose: 2 mg Magnesium Oxide (Mag-Ox -) 800 mg PO [facility] Last Admin: 06/14/17 21:26 Dose: 800 mg Metoprolol Tartrate (Lopressor Injection -) 5 mg IVPUSH Q8H PRN Last Admin: 06/15/17 00:32 Dose: 5 mg Metoprolol Tartrate (Lopressor Injection -) 10 mg IVPUSH Q8H PRN Last Admin: 06/12/17 11:20 Dose: 10 mg Phenytoin Sodium (Dilantin Injection -) 100 mg IVPB TID [facility] Last Admin: 06/15/17 13:59 Dose: 100 mg Topiramate (Topamax -) 100 mg PO BID [facility] Last Admin: 06/15/17 12:01 Dose: 100 mg Valproate Sodium (Depacon Injection -) 1,000 mg IV BID [facility] Last Admin: 06/15/17 09:04 Dose: 1,000 mg - Objective Vital Signs: Vital Signs Temperature 100.7 F H 06/15/17 19:51 Pulse Rate 111 H 06/15/17 19:51 Respiratory Rate 11 L 06/15/17 19:51 Blood Pressure 82/53 06/15/17 19:51 O2 Sat by Pulse Oximetry (%) 98 06/15/17 09:35 Constitutional: Yes: Severe Distress Eyes: Yes: WNL HENT: Yes: WNL Neck: Yes: WNL Cardiovascular: Yes: WNL Respiratory: Yes: Mechanically Ventilated, Other Gastrointestinal: Yes: WNL Genitourinary: Yes: Jorge Luis Present Musculoskeletal: Yes: Muscle Weakness Extremities: Yes: Other Edema: Yes Peripheral Pulses WNL: Yes Integumentary: Yes: WNL Wound/Incision: Yes: Clean/Dry Neurological: Yes: Seizure, Unresponsive, Unsteady Gait, Weakness, Other Psychiatric: Yes: Other Labs: CBC, BMP 06/15/17 09:59 06/15/17 09:59 INR, PTT INR 1.19 (0.82-1.09) H 06/11/17 05:00 Problem List - Problems (1) Atrial fibrillation Code(s): I48.91 - UNSPECIFIED ATRIAL FIBRILLATION Qualifiers: Atrial fibrillation type: persistent Qualified Code(s): I48.1 - Persistent atrial fibrillation (2) Heart palpitations Code(s): R00.2 - PALPITATIONS (3) Subdural hematoma Code(s): I62.00 - NONTRAUMATIC SUBDURAL HEMORRHAGE, UNSPECIFIED (4) Supratherapeutic INR Code(s): R79.1 - ABNORMAL COAGULATION PROFILE (5) Asthma Code(s): J45.909 - UNSPECIFIED ASTHMA, UNCOMPLICATED (6) Cerebrovascular accident (CVA) Code(s): I63.9 - CEREBRAL INFARCTION, UNSPECIFIED Qualifiers: CVA mechanism: thrombosis Precerebral and cerebral artery: middle cerebral artery, left (7) Diabetes mellitus Code(s): E11.9 - TYPE 2 DIABETES MELLITUS WITHOUT COMPLICATIONS Qualifiers: Diabetes mellitus type: type 2 Diabetes mellitus complication status: without complication Diabetes mellitus chcf insulin use: without emt intermediate use Qualified Code(s): E11.9 - Type 2 diabetes mellitus without complications (8) Seizure Code(s): R56.9 - UNSPECIFIED CONVULSIONS (9) Endotracheally intubated Code(s): Z97.8 - PRESENCE OF OTHER SPECIFIED DEVICES Assessment/Plan DNR NOW FAMILY BEDSIDE RESP SUPPORT WITH MECH VENT SEIZURE PRECAUTIONS POOR OVER ALL PROGNOSIS
--- NOTE | 2017-06-15 21:04 | PN ---
Progress Note (short form) - Note Progress Note: 71 year old female admitted with traumatic SDH.underwent craniotomy, followed by recurring seizures and required intubation.Known case of CAD,angina pectoris,hypertension,history of CVA with residual right hemiplegia, hypothyoidism,permanent atrial fib with rapid ventricular response. Remains sedated and intubated. Active Medications Acetaminophen (Tylenol -) 650 mg PO Q4H PRN PRN Reason: FEVER OR PAIN Last Admin: 06/15/17 12:02 Dose: 650 mg Acetaminophen (Tylenol Oral Solution -) 650 mg PO Q6H PRN PRN Reason: FEVER OR PAIN Last Admin: 06/15/17 00:14 Dose: 650 mg Atorvastatin Calcium (Lipitor -) 20 mg PO HS [facility] Last Admin: 06/14/17 21:26 Dose: 20 mg Propofol (Diprivan -) 100 mls @ 4.853 mls/hr IVPB TITR [facility]; 10 MCG/KG/MIN PRN Reason: Protocol Last Admin: 06/15/17 16:19 Dose: 5 mls/hr Pantoprazole Sodium 40 mg/ (Sodium Chloride) 100 mls @ 200 mls/hr IVPB DAILY [facility] Last Admin: 06/15/17 09:05 Dose: 200 mls/hr Levetiracetam (Keppra Injection -) 1,250 mg IVPB BID [facility] Last Admin: 06/15/17 09:05 Dose: 1,250 mg Levothyroxine Sodium (Synthroid -) 50 mcg PO DAILY@0700 [facility] Last Admin: 06/15/17 06:48 Dose: 50 mcg Lorazepam (Ativan Injection -) 2 mg IVPUSH Q1H PRN PRN Reason: seizure Last Admin: 06/14/17 20:06 Dose: 2 mg Magnesium Oxide (Mag-Ox -) 800 mg PO HS [facility] Last Admin: 06/14/17 21:26 Dose: 800 mg Metoprolol Tartrate (Lopressor Injection -) 5 mg IVPUSH Q8H PRN Last Admin: 06/15/17 00:32 Dose: 5 mg Metoprolol Tartrate (Lopressor Injection -) 10 mg IVPUSH Q8H PRN Last Admin: 06/12/17 11:20 Dose: 10 mg Phenytoin Sodium (Dilantin Injection -) 100 mg IVPB TID [facility] Last Admin: 06/15/17 13:59 Dose: 100 mg Topiramate (Topamax -) 100 mg PO BID [facility] Last Admin: 06/15/17 12:01 Dose: 100 mg Valproate Sodium (Depacon Injection -) 1,000 mg IV BID [facility] Last Admin: 06/15/17 09:04 Dose: 1,000 mg 71 year female intubated, no pallor or cyanosis.Low grade temp. Vital Signs - 8 hr 06/15/17 06/15/17 06/15/17 13:53 14:00 16:00 Temperature 100.8 F H 100.2 F H Pulse Rate 126 H 116 H Respiratory 17 22 24 Rate Blood Pressure 63/50 70/50 O2 Sat by Pulse Oximetry (%) 06/15/17 06/15/17 06/15/17 16:10 18:00 19:10 Temperature Pulse Rate 116 H Respiratory 24 24 21 Rate Blood Pressure 82/62 O2 Sat by Pulse Oximetry (%) 06/15/17 06/15/17 06/15/17 19:51 20:36 20:37 Temperature 100.7 F H Pulse Rate 111 H Respiratory 11 L 14 Rate Blood Pressure 82/53 O2 Sat by Pulse 100 100 Oximetry (%) NECK:No JVD,-ve HJR,carotids 2+,no bruits appreciated. HEART:PMI in the 5th ICS,no heaves or thrills,S1 is variable,S2 is normal. Unable to appreciate a murmur or gallops. LUNG:Clear on auscultation. ABDOMEN:Soft nontender,no organomegaly or palpable masses felt. Extremities:No edema. CBC, BMP 06/15/17 09:59 06/15/17 09:59 Impression: 1.Traumatic SDH with rebleed. 2.Seizures. 3.Atrial fibrillation with rapid vent. response. 4.CAD,angina pectoris 5.H/O seizure disorder related to a previous CVA. 6.Hypertension. 7.Hypothyrioidism. 8.low grade fever. 9.Anemia. RECOMMENDATIONS: 1.Control of heart rate with I.V Betablockers or Cardizem. 2.Current management as out lined by control systems engineer. 2. Supportive care. Prognosis; Critical.
[2017-06-15] MEDS: ATORVASTATIN CA 20 MG TABLET (FP) PO SCH (21:37)
[2017-06-15] MEDS: MAGNESIUM OXIDE 400 MG TABLET (FP) PO SCH (21:37)
--- NOTE | 2017-06-15 21:44 | PN ---
Progress Note (short form) - Note Progress Note: PAtient seen and examined intuated/unresponsive febrile AFVSS Cor: RSR, No murmurs, No gallops Lungs: Clear to P&A Abd: Soft, Normal bowel sounds, No organomegaly Ext:No significant edema S Abnormal Lab Results 06/15/17 06/15/17 09:59 09:59 WBC 13.3 H Hgb 10.5 L MCV 79.7 L Random Glucose 149 H Alkaline Phosphatase 122 H Albumin 2.8 L Active Medications Generic Name Dose Route Start Last Admin Trade Name Freq PRN Reason Stop Dose Admin Acetaminophen 650 mg 06/10/17 16:00 06/15/17 12:02 Tylenol - PO 650 mg Q4H PRN Administration FEVER OR PAIN Acetaminophen 650 mg 06/13/17 23:12 06/15/17 21:37 Tylenol Oral Solution - PO 650 mg Q6H PRN Administration FEVER OR PAIN Atorvastatin Calcium 20 mg 06/10/17 22:00 06/15/17 21:37 Lipitor - PO 20 mg HS [facility] Administration Propofol 100 mls @ 4.853 mls/hr 06/13/17 22:00 06/15/17 21:38 Diprivan - IVPB Not Given TITR [facility] Protocol 10 MCG/KG/MIN Pantoprazole Sodium 40 mg/ 100 mls @ 200 mls/hr 06/14/17 10:00 06/15/17 09:05 Sodium Chloride IVPB 200 mls/hr DAILY [facility] Administration Levetiracetam 1,250 mg 06/13/17 22:00 06/15/17 21:38 Keppra Injection - IVPB 1,250 mg BID [facility] Administration Levothyroxine Sodium 50 mcg 06/11/17 07:00 06/15/17 06:48 Synthroid - PO 50 mcg DAILY@0700 [facility] Administration Lorazepam 2 mg 06/13/17 20:07 06/14/17 20:06 Ativan Injection - IVPUSH 2 mg Q1H PRN Administration seizure Magnesium Oxide 800 mg 06/10/17 22:00 06/15/17 21:37 Mag-Ox - PO 800 mg HS [facility] Administration Metoprolol Tartrate 5 mg 06/12/17 16:19 06/15/17 00:32 Lopressor Injection - IVPUSH 5 mg Q8H PRN Administration Metoprolol Tartrate 10 mg 06/12/17 16:20 06/12/17 11:20 Lopressor Injection - IVPUSH 10 mg Q8H PRN Administration Phenytoin Sodium 100 mg 06/14/17 06:00 06/15/17 21:38 Dilantin Injection - IVPB 100 mg TID [facility] Administration Topiramate 100 mg 06/15/17 11:00 06/15/17 21:37 Topamax - PO 100 mg BID [facility] Administration Valproate Sodium 1,000 mg 06/14/17 20:30 06/15/17 21:38 Depacon Injection - IV 1,000 mg BID [facility] Administration A/P 71 y/opatient with HTn, DM, CAD, Afib on coumadin, h/o CVA, comes in with subdural hematoma s/p evacuation s/p 4u ffp/vit. k for inr >[address] /MRI showed rebleed rt. hemispheric wth mass effect poor prognosis family understands and are in goals of care discussion with icu team
[2017-06-16] MEDS: PHENYTOIN SODIUM 100 MG/2 ML VIAL IVPB SCH ×3 (05:11→21:35)
[2017-06-16] MEDS: LEVOTHYROXINE NA 50 MCG TABLET (FP) PO SCH (06:26)
[2017-06-16] MEDS ORDERED: PT OWN MED DRAWER 7, Y5N ONE (09:37)
[2017-06-16] MEDS: PANTOPRAZOLE SODIUM 40 MG in SODIUM CHLORIDE 100 ML IVPB SCH (09:55)
[2017-06-16] MEDS: VALPROATE SODIUM 500 MG/5 ML VIAL IV SCH ×2 (09:56→21:35)
[2017-06-16] MEDS: levETIRAcetam 500 MG/5 ML INJECTION VIAL IVPB SCH ×2 (09:57→21:35)
[2017-06-16] MEDS: TOPIRAMATE 100 MG TABLET PO SCH ×2 (09:58→21:35)
--- NOTE | 2017-06-16 10:04 | PN ---
Progress Note (short form) - Note Progress Note: Patient seen and examined this am. O/E: General: Intubated sedated, unresponsive. Eyes closed Cor: tachycardic Lungs: rhoncourous anterios auscultation Abd: Soft Ext:cold, on SCDs Last Vital Signs Temp Pulse Resp BP Pulse Ox 98.2 F 114 H 17 104/68 100 06/16/17 08:00 06/16/17 08:00 06/16/17 08:00 06/16/17 08:00 06/15/17 21:00 CBC, BMP 06/15/17 09:59 06/15/17 09:59 Current Medications Generic Name Dose Route Start Last Admin Trade Name Freq PRN Reason Stop Dose Admin Acetaminophen 650 mg 06/10/17 16:00 06/15/17 12:02 Tylenol - PO 650 mg Q4H PRN Administration FEVER OR PAIN Acetaminophen 650 mg 06/13/17 23:12 06/15/17 21:37 Tylenol Oral Solution - PO 650 mg Q6H PRN Administration FEVER OR PAIN Atorvastatin Calcium 20 mg 06/10/17 22:00 06/15/17 21:37 Lipitor - PO 20 mg HS [facility] Administration Propofol 100 mls @ 4.853 mls/hr 06/13/17 22:00 06/15/17 21:38 Diprivan - IVPB Not Given TITR [facility] Protocol 10 MCG/KG/MIN Pantoprazole Sodium 40 mg/ 100 mls @ 200 mls/hr 06/14/17 10:00 06/16/17 09:55 Sodium Chloride IVPB 200 mls/hr DAILY [facility] Administration Levetiracetam 1,250 mg 06/13/17 22:00 06/16/17 09:57 Keppra Injection - IVPB 1,250 mg BID [facility] Administration Levothyroxine Sodium 50 mcg 06/11/17 07:00 06/16/17 06:26 Synthroid - PO 50 mcg DAILY@0700 [facility] Administration Lorazepam 2 mg 06/13/17 20:07 06/14/17 20:06 Ativan Injection - IVPUSH 2 mg Q1H PRN Administration seizure Magnesium Oxide 800 mg 06/10/17 22:00 06/15/17 21:37 Mag-Ox - PO 800 mg HS [facility] Administration Metoprolol Tartrate 5 mg 06/12/17 16:19 06/15/17 00:32 Lopressor Injection - IVPUSH 5 mg Q8H PRN Administration Metoprolol Tartrate 10 mg 06/12/17 16:20 06/12/17 11:20 Lopressor Injection - IVPUSH 10 mg Q8H PRN Administration Phenytoin Sodium 100 mg 06/14/17 06:00 06/16/17 05:11 Dilantin Injection - IVPB 100 mg TID [facility] Administration Topiramate 100 mg 06/15/17 11:00 06/16/17 09:58 Topamax - PO 100 mg BID [facility] Administration Valproate Sodium 1,000 mg 06/14/17 20:30 06/16/17 09:56 Depacon Injection - IV 1,000 mg BID [facility] Administration Assessment/Plan: Ms. Styles is a 71 year old patient with HTN, DM, CAD, Afib on coumadin, h/o CVA, was admitted with subdural hematoma s/p evacuation On admission, she received 4u ffp/vit. k for inr >4, and her INR was corrected prior to the evacuation post op. seizures, on AEDs. Repeat CT /MRI post surgery with re-bleed with mass effect, she remains intubated, sedated and unresponsive goals of care discussion with icu team ongoing. poor prognosis Problem List - Problems (1) Subdural hematoma Code(s): I62.00 - NONTRAUMATIC SUBDURAL HEMORRHAGE, UNSPECIFIED (2) Atrial fibrillation Code(s): I48.91 - UNSPECIFIED ATRIAL FIBRILLATION Qualifiers: Atrial fibrillation type: persistent Qualified Code(s): I48.1 - Persistent atrial fibrillation (3) Anemia Code(s): D64.9 - ANEMIA, UNSPECIFIED (4) Cerebrovascular accident (CVA) Code(s): I63.9 - CEREBRAL INFARCTION, UNSPECIFIED Qualifiers: CVA mechanism: thrombosis Precerebral and cerebral artery: middle cerebral artery, left (5) CAD (coronary artery disease) Code(s): I25.10 - ATHSCL HEART DISEASE OF [place] CORONARY ARTERY W/O ANG PCTRS Qualifiers: Coronary Disease-Associated Artery/Lesion type: [place] artery [place] vs. transplanted heart: [place] heart Associated angina: without angina Qualified Code(s): I25.10 - Atherosclerotic heart disease of [place] coronary artery without angina pectoris
--- NOTE | 2017-06-16 10:09 | PN ---
Progress Note (short form) - Note Progress Note: Neurology History of Present Illness The patient is a 71 year old female, with a significant past medical history of Asthma, CVA (minimal R sided weakness), partial seizures, Atrial Fibrillation ( on Coumadin), CAD, HTN, HLD, Diabetes and Hypothyroidism, who presented to the emergency department for abnormal CT head findings. Apparently, the patient had suffered head trauma approximately 2 weeks prior to admission while fixing a folding chair and denied hitting her head again. 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 NSGY , Dr. Ramirez consulted, and completed surgical intervention with craniotomy and evacuation with patient placed in ICU under close monitoring. On 06/12, patient had a seizure in the ICU with L facial twitching, was already on Keppra 750mg twice daily, recommended increase to 1000mg twice daily. EEG also ordered, however due to surgical craniatomy, tech not able to complete. Had recurrent episodic seizures that were treated with Ativan. Keppra gradually increased to 1250mg twice daily. Phenytoin and Depakene added as well as patient with recurring seizures evening of 06/13. MRI brain completed and reviewed, DWI and ADC sequence show ischemic region juxaposed to location of R subdural hematoma but with active blood products there was concern regarding bleeding and NSGY involved and open to AC if needed. Family hesitant given risk and AC plan on hold for now. MRA showed stenosis of L ICA, mild to moderate given motion artifact. MCA branches with mass effect from SDH. Patient also with respiratory decompensation night of 06/13 and required intubation and mechanical ventilation. Patient with refractory seizures. Has been having recurrent seizures but now stabilized with addition of Topamax 100mg twice daily in addition to Depakene 1000mg twice daily added in addition to Phenytoin 100mg three times daily as well as the Keppra 1250mg twice daily. Likely 2/2 to cerebral irritation from blood product/surgical intervention. No significant neurologic improvement in function or cognition. Active Medications Acetaminophen (Tylenol -) 650 mg PO Q4H PRN PRN Reason: FEVER OR PAIN Last Admin: 06/15/17 12:02 Dose: 650 mg Acetaminophen (Tylenol Oral Solution -) 650 mg PO Q6H PRN PRN Reason: FEVER OR PAIN Last Admin: 06/15/17 21:37 Dose: 650 mg Atorvastatin Calcium (Lipitor -) 20 mg PO HS [facility] Last Admin: 06/15/17 21:37 Dose: 20 mg Propofol (Diprivan -) 100 mls @ 4.853 mls/hr IVPB TITR [facility]; 10 MCG/KG/MIN PRN Reason: Protocol Last Admin: 06/15/17 21:38 Dose: Not Given Pantoprazole Sodium 40 mg/ (Sodium Chloride) 100 mls @ 200 mls/hr IVPB DAILY [facility] Last Admin: 06/16/17 09:55 Dose: 200 mls/hr Levetiracetam (Keppra Injection -) 1,250 mg IVPB BID [facility] Last Admin: 06/16/17 09:57 Dose: 1,250 mg Levothyroxine Sodium (Synthroid -) 50 mcg PO DAILY@0700 [facility] Last Admin: 06/16/17 06:26 Dose: 50 mcg Lorazepam (Ativan Injection -) 2 mg IVPUSH Q1H PRN PRN Reason: seizure Last Admin: 06/14/17 20:06 Dose: 2 mg Magnesium Oxide (Mag-Ox -) 800 mg PO HS [facility] Last Admin: 06/15/17 21:37 Dose: 800 mg Metoprolol Tartrate (Lopressor Injection -) 5 mg IVPUSH Q8H PRN Last Admin: 06/15/17 00:32 Dose: 5 mg Metoprolol Tartrate (Lopressor Injection -) 10 mg IVPUSH Q8H PRN Last Admin: 06/12/17 11:20 Dose: 10 mg Phenytoin Sodium (Dilantin Injection -) 100 mg IVPB TID [facility] Last Admin: 06/16/17 05:11 Dose: 100 mg Topiramate (Topamax -) 100 mg PO BID [facility] Last Admin: 06/16/17 09:58 Dose: 100 mg Valproate Sodium (Depacon Injection -) 1,000 mg IV BID [facility] Last Admin: 06/16/17 09:56 Dose: 1,000 mg *Physical Exam Vital Signs Period Temp Pulse Resp BP Sys/Becerra Pulse Ox Last 24 Hr 98.2 F-100.8 F 104-126 11-24 63-117/50-81 100-100 GENERAL: The patient is sedated, on Propofol, intubated and on mechanical ventilation HEAD: S/P surgical intervention EYES: Pupils equal, round and reactive to light, extraocular movements intact, sclera anicteric, conjunctiva clear with no pallor. ENT: Ears normal, nares patent, oropharynx clear without exudates. Moist mucous membranes. LUNGS: Breath sounds equal, clear to auscultation bilaterally. No wheeze/ crackles. HEART: Regular rate and rhythm, normal S1 and S2 without murmur or rub. ABDOMEN: Soft/nontender/nondistended. BS wnl. No guarding or rebound. No palpable masses. No hepatosplenomegaly. EXTREMITIES: No edema. No clubbing or cyanosis. No cords, erythema, or tenderness. NEUROLOGICAL: Limited exam, Cranial nerves II through XII grossly intact, not able to participate in testing, unclear exam strength, responds to pain, Babinski positive b/l SKIN: Warm, Dry, normal turgor, no rashes or lesions noted. CBCD WBC 13.3 K/mm3 (4.0-10.0) H 06/15/17 09:59 RBC 4.08 M/mm3 (3.60-5.2) 06/15/17 09:59 Hgb 10.5 GM/dL (10.7-15.3) L 06/15/17 09:59 Hct 32.5 % (32.4-45.2) 06/15/17 09:59 MCV 79.7 fl (80-96) L 06/15/17 09:59 MCHC 32.2 g/dl (32.0-36.0) 06/15/17 09:59 RDW 15.5 % (11.6-15.6) 06/15/17 09:59 Plt Count 230 K/MM3 (134-434) 06/15/17 09:59 MPV 7.9 fl (7.5-11.1) 06/15/17 09:59 CMP Sodium 141 mmol/L (136-145) 06/15/17 09:59 Potassium 3.5 mmol/L (3.5-5.1) 06/15/17 09:59 Chloride 101 mmol/L (98-107) 06/15/17 09:59 Carbon Dioxide 27 mmol/L (21-32) 06/15/17 09:59 Anion Gap 13 (8-16) 06/15/17 09:59 BUN 16 mg/dL (7-18) D 06/15/17 09:59 Creatinine 0.9 mg/dL (0.55-1.02) 06/15/17 09:59 Creat Clearance w eGFR > 60 (>60) 06/15/17 09:59 Calcium 8.9 mg/dL (8.5-10.1) 06/15/17 09:59 Total Bilirubin 0.9 mg/dL (0.2-1.0) 06/15/17 09:59 AST 18 U/L (15-37) 06/15/17 09:59 ALT 18 U/L (12-78) 06/15/17 09:59 Alkaline Phosphatase 122 U/L (45-117) H 06/15/17 09:59 Total Protein 7.0 g/dl (6.4-8.2) 06/15/17 09:59 Albumin 2.8 g/dl (3.4-5.0) L 06/15/17 09:59 - RADIOLOGY CT head reviewed MRI brain reviewed Plan: 71 year old female, with a significant past medical history of Asthma, CVA ( minimal R sided weakness), partial seizures, Atrial Fibrillation (on Coumadin), CAD, HTN, HLD, Diabetes and Hypothyroidism, who presented to the emergency department for abnormal CT head findings. Apparently, the patient had suffered head trauma approximately 2 weeks prior to admission while fixing a folding chair and denied hitting her head again. 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 NSGY, Dr. Ramirez consulted, and completed surgical intervention with craniotomy and evacuation. On 06/12, I was consulted as the patient had a seizure in the ICU with L facial twitching. I had spoke to the resident. She was already on Keppra 750mg twice daily, recommended increase to 1000mg twice daily. EEG also ordered , however due to surgical craniatomy, tech not able to complete. Sedated, intubated, on mechanical ventilation at this time -MRI brain reviewed, acute ishemic changes in R parietal/temporal region -MRA reviewed with stenosis mild to moderate of L ICA, MCA branches with edematous mass effect -AC being consider but with recent surgery and bleed risk, on hold -NSGY to weigh in on safety of AC s/p surgical intervention -Seizure now stabilized on regiment of Keppra 1250bid, Phenytoin at 100mg TID, and Depekene at 1000mg twice a day, Propofol also protective -added topamax 100mg twice daily which resolved seizures overnight -Tight Blood pressure control, avoid hypertensive episodes -Follow up EEG -Monitor mental status -Afib, rate control -Strict avoidance of head trauma -DVT ppx -Possibly palliative care -Critical care time 40 mins
[2017-06-16 11:02] LABS: INR 1.88 (0.82-1.09); PROTHROMBIN TIME (PATIENT) 20.9 SEC (9.98-11.88)
[2017-06-16 11:04] LABS: ACTIVATED PTT 24.8 SECONDS (26.9-34.4)
--- NOTE | 2017-06-16 14:02 | PN ---
Teaching Attending Note Name of Resident: Corrine Santiago ATTENDING PHYSICIAN STATEMENT I saw and evaluated the patient. I reviewed the resident's note and discussed the case with the resident. I agree with the resident's findings and plan as documented. SUBJECTIVE: Patient seen and examined in the ICU. No overall change in condition. Remains intubated. AC Mode of vent. Intake & Output 06/13/17 06/14/17 06/15/17 06/16/17 23:59 23:59 23:59 23:59 Intake Total 615 1165.9 1265 135 Output Total 100 1100 1500 100 Balance 515 65.9 -235 35 Weight 178 lb 5 oz 183 lb 6.4 oz 182 lb 3 oz 180 lb 5 oz Last Vital Signs Temp Pulse Resp BP Pulse Ox 97.6 F 122 H 16 106/66 99 06/16/17 10:00 06/16/17 10:00 06/16/17 11:59 06/16/17 10:00 06/16/17 10:00 Active Medications Acetaminophen (Tylenol -) 650 mg PO Q4H PRN PRN Reason: FEVER OR PAIN Last Admin: 06/15/17 12:02 Dose: 650 mg Acetaminophen (Tylenol Oral Solution -) 650 mg PO Q6H PRN PRN Reason: FEVER OR PAIN Last Admin: 06/15/17 21:37 Dose: 650 mg Atorvastatin Calcium (Lipitor -) 20 mg PO HS [facility] Last Admin: 06/15/17 21:37 Dose: 20 mg Propofol (Diprivan -) 100 mls @ 4.853 mls/hr IVPB TITR [facility]; 10 MCG/KG/MIN PRN Reason: Protocol Last Admin: 06/15/17 21:38 Dose: Not Given Pantoprazole Sodium 40 mg/ (Sodium Chloride) 100 mls @ 200 mls/hr IVPB DAILY [facility] Last Admin: 06/16/17 09:55 Dose: 200 mls/hr Levetiracetam (Keppra Injection -) 1,250 mg IVPB BID [facility] Last Admin: 06/16/17 09:57 Dose: 1,250 mg Levothyroxine Sodium (Synthroid -) 50 mcg PO DAILY@0700 [facility] Last Admin: 06/16/17 06:26 Dose: 50 mcg Lorazepam (Ativan Injection -) 2 mg IVPUSH Q1H PRN PRN Reason: seizure Last Admin: 06/14/17 20:06 Dose: 2 mg Magnesium Oxide (Mag-Ox -) 800 mg PO HS [facility] Last Admin: 06/15/17 21:37 Dose: 800 mg Metoprolol Tartrate (Lopressor Injection -) 5 mg IVPUSH Q8H PRN Last Admin: 06/15/17 00:32 Dose: 5 mg Metoprolol Tartrate (Lopressor Injection -) 10 mg IVPUSH Q8H PRN Last Admin: 06/12/17 11:20 Dose: 10 mg Phenytoin Sodium (Dilantin Injection -) 100 mg IVPB TID [facility] Last Admin: 06/16/17 05:11 Dose: 100 mg Topiramate (Topamax -) 100 mg PO BID [facility] Last Admin: 06/16/17 09:58 Dose: 100 mg Valproate Sodium (Depacon Injection -) 1,000 mg IV BID [facility] Last Admin: 06/16/17 09:56 Dose: 1,000 mg Gen: Vented, minimally responsive Heart: Tachycardia, irregular Lung: decreased breath sounds at the bases Abd: soft, ND Ext: no edema Laboratory Results - last 24 hr 06/15/17 06/15/17 06/16/17 05:35 12:01 05:00 PT with INR INR PTT (Actin FS) POC Glucometer 134.29449 79.43304 Phenytoin 12.5 D 06/16/17 10:30 PT with INR 20.90 H INR 1.88 H D PTT (Actin FS) 24.8 L POC Glucometer Phenytoin ASSESSMENT AND PLAN: Acute Respiratory Failure Recurrent Seizure Subdural Hematoma s/p Craniotomy/Hematoma Evacuation h/o CVA Atrial Fibrillation HTN DM CAD Hypothyroidism Asthma Long discussion with daughter. She had a discussion with her mother about 1 year ago about advanced directives. Her mother was very clear that she would not want a Trach or feeding tube or to be kept alive if she could not go back a good quality of life. Patient is DNR. Likely short term plan for compassionate extubation. Dr Crystal Critical care time spent in reviewing chart, evaluating patient and formulating plan - 35 minutes
--- NOTE | 2017-06-16 14:27 | PN ---
Physical Exam: 24H Events: Family meeting yesterday. No further blood draws, procedures, or new medications. Family considering compassionate extubation. SUBJECTIVE: Patient seen and examined in ICU. Remains intubated on propofol, off pressors. OBJECTIVE: Vital Signs Period Temp Pulse Resp BP Sys/Becerra Pulse Ox Last 24 Hr 97.6 F-100.7 F 104-122 11-24 70-117/50-77 99-100 Intake & Output 06/13/17 06/14/17 06/15/17 06/16/17 23:59 23:59 23:59 23:59 Intake Total 615 1165.9 1265 135 Output Total 100 1100 1500 100 Balance 515 65.9 -235 35 Weight 80.881 kg 83.189 kg 82.639 kg 81.788 kg GENERAL: Intubated, sedated LUNGS: Mechanical ventilation HEART: tachycardic, irregular, no murmur, rub or gallop ABDOMEN: Soft, ntnd EXTREMITIES: 2+ pulses, warm, well-perfused, no LE edema. Laboratory Results - last 24 hr 06/15/17 06/15/17 06/16/17 05:35 12:01 05:00 PT with INR INR PTT (Actin FS) POC Glucometer 134.98324 79.78120 Phenytoin 12.5 D 06/16/17 10:30 PT with INR 20.90 H INR 1.88 H D PTT (Actin FS) 24.8 L POC Glucometer Phenytoin Active Medications Acetaminophen (Tylenol -) 650 mg PO Q4H PRN PRN Reason: FEVER OR PAIN Last Admin: 06/15/17 12:02 Dose: 650 mg Acetaminophen (Tylenol Oral Solution -) 650 mg PO Q6H PRN PRN Reason: FEVER OR PAIN Last Admin: 06/15/17 21:37 Dose: 650 mg Atorvastatin Calcium (Lipitor -) 20 mg PO HS [facility] Last Admin: 06/15/17 21:37 Dose: 20 mg Propofol (Diprivan -) 100 mls @ 4.853 mls/hr IVPB TITR [facility]; 10 MCG/KG/MIN PRN Reason: Protocol Last Admin: 06/15/17 21:38 Dose: Not Given Pantoprazole Sodium 40 mg/ (Sodium Chloride) 100 mls @ 200 mls/hr IVPB DAILY [facility] Last Admin: 06/16/17 09:55 Dose: 200 mls/hr Levetiracetam (Keppra Injection -) 1,250 mg IVPB BID [facility] Last Admin: 06/16/17 09:57 Dose: 1,250 mg Levothyroxine Sodium (Synthroid -) 50 mcg PO DAILY@0700 [facility] Last Admin: 06/16/17 06:26 Dose: 50 mcg Lorazepam (Ativan Injection -) 2 mg IVPUSH Q1H PRN PRN Reason: seizure Last Admin: 06/14/17 20:06 Dose: 2 mg Magnesium Oxide (Mag-Ox -) 800 mg PO HS [facility] Last Admin: 06/15/17 21:37 Dose: 800 mg Metoprolol Tartrate (Lopressor Injection -) 5 mg IVPUSH Q8H PRN Last Admin: 06/15/17 00:32 Dose: 5 mg Metoprolol Tartrate (Lopressor Injection -) 10 mg IVPUSH Q8H PRN Last Admin: 06/12/17 11:20 Dose: 10 mg Phenytoin Sodium (Dilantin Injection -) 100 mg IVPB TID [facility] Last Admin: 06/16/17 05:11 Dose: 100 mg Topiramate (Topamax -) 100 mg PO BID [facility] Last Admin: 06/16/17 09:58 Dose: 100 mg Valproate Sodium (Depacon Injection -) 1,000 mg IV BID [facility] Last Admin: 06/16/17 09:56 Dose: 1,000 mg ASSESSMENT/PLAN: 71yo woman with PMH of HTN, CAD, DM, hypothyroidism, asthma, Afib, CVA ( residual R sided weakness) c/b seizures, who is POD#6 s/p R craniotomy/ evacuation for SDH and recurrent seizures. Patient was intubated due to acute respiratory failure and remains on propofol sedation. Patient is poorly responsive. Family wishes to have compassionate extubation tomorrow, Jun 17 at 11AM, discussed with Pastoral Care. #Neuro -AEDs per Neurology -Propofol gtt for sedation -Ativan 2mg IVPUSH q1h PRN for seizure -Acetaminophen 650mg PO q6h PRN for fever or pain #Pulm -Continue mechanical ventilation #CV -Metoprolol 5-10mg IVPUSH q8h PRN for rate control #PPX -SCDs for DVT ppx -PPI for GI ppx Dispo: -DNR/DNI -Comfort care, Compassionate extubation tomorrow morning -Palliative and Pastoral Care on board d/w with Dr. Bonilla Santiago MD PGY-1 Visit type - Emergency Visit Emergency Visit: No - New Patient This patient is new to me today: No - Critical Care Critical Care patient: Yes Total Critical Care Time (in minutes): 35 Critical Care Statement: The care of this patient involved high complexity decision making to prevent further life threatening deterioration of the patient 's condition and/or to evaluate & treat vital organ system(s) failure or risk of failure.
--- NOTE | 2017-06-16 15:45 | PN ---
Progress Note, Physician Chief Complaint: INTUBATED SEDATED UNAROUSABLE - Current Medication List Current Medications: Active Medications Acetaminophen (Tylenol -) 650 mg PO Q4H PRN PRN Reason: FEVER OR PAIN Last Admin: 06/15/17 12:02 Dose: 650 mg Acetaminophen (Tylenol Oral Solution -) 650 mg PO Q6H PRN PRN Reason: FEVER OR PAIN Last Admin: 06/15/17 21:37 Dose: 650 mg Atorvastatin Calcium (Lipitor -) 20 mg PO HS [facility] Last Admin: 06/15/17 21:37 Dose: 20 mg Propofol (Diprivan -) 100 mls @ 4.853 mls/hr IVPB TITR [facility]; 10 MCG/KG/MIN PRN Reason: Protocol Last Admin: 06/15/17 21:38 Dose: Not Given Pantoprazole Sodium 40 mg/ (Sodium Chloride) 100 mls @ 200 mls/hr IVPB DAILY [facility] Last Admin: 06/16/17 09:55 Dose: 200 mls/hr Levetiracetam (Keppra Injection -) 1,250 mg IVPB BID [facility] Last Admin: 06/16/17 09:57 Dose: 1,250 mg Levothyroxine Sodium (Synthroid -) 50 mcg PO DAILY@0700 [facility] Last Admin: 06/16/17 06:26 Dose: 50 mcg Lorazepam (Ativan Injection -) 2 mg IVPUSH Q1H PRN PRN Reason: seizure Last Admin: 06/14/17 20:06 Dose: 2 mg Magnesium Oxide (Mag-Ox -) 800 mg PO HS [facility] Last Admin: 06/15/17 21:37 Dose: 800 mg Metoprolol Tartrate (Lopressor Injection -) 5 mg IVPUSH Q8H PRN Last Admin: 06/15/17 00:32 Dose: 5 mg Metoprolol Tartrate (Lopressor Injection -) 10 mg IVPUSH Q8H PRN Last Admin: 06/12/17 11:20 Dose: 10 mg Phenytoin Sodium (Dilantin Injection -) 100 mg IVPB TID [facility] Last Admin: 06/16/17 05:11 Dose: 100 mg Topiramate (Topamax -) 100 mg PO BID [facility] Last Admin: 06/16/17 09:58 Dose: 100 mg Valproate Sodium (Depacon Injection -) 1,000 mg IV BID [facility] Last Admin: 06/16/17 09:56 Dose: 1,000 mg - Objective Vital Signs: Vital Signs Temperature 98.8 F 06/16/17 14:00 Pulse Rate 82 06/16/17 14:00 Respiratory Rate 18 06/16/17 14:15 Blood Pressure 136/94 06/16/17 14:00 O2 Sat by Pulse Oximetry (%) 99 06/16/17 10:00 Constitutional: Yes: Severe Distress Eyes: Yes: Other HENT: Yes: Other Neck: Yes: WNL Cardiovascular: Yes: WNL Respiratory: Yes: Mechanically Ventilated Gastrointestinal: Yes: WNL Genitourinary: Yes: Jorge Luis Present Musculoskeletal: Yes: Muscle Weakness Extremities: Yes: Other Edema: Yes Peripheral Pulses WNL: Yes Integumentary: Yes: Other Wound/Incision: Yes: Other Neurological: Yes: Pre-Existing Deficit ...Motor Strength: LLE, RLE Psychiatric: Yes: Other Labs: CBC, BMP 06/15/17 09:59 06/15/17 09:59 INR, PTT INR 1.88 (0.82-1.09) H D 06/16/17 10:30 Problem List - Problems (1) Atrial fibrillation Code(s): I48.91 - UNSPECIFIED ATRIAL FIBRILLATION Qualifiers: Atrial fibrillation type: persistent Qualified Code(s): I48.1 - Persistent atrial fibrillation (2) Heart palpitations Code(s): R00.2 - PALPITATIONS (3) Subdural hematoma Code(s): I62.00 - NONTRAUMATIC SUBDURAL HEMORRHAGE, UNSPECIFIED (4) Supratherapeutic INR Code(s): R79.1 - ABNORMAL COAGULATION PROFILE (5) Asthma Code(s): J45.909 - UNSPECIFIED ASTHMA, UNCOMPLICATED (6) Cerebrovascular accident (CVA) Code(s): I63.9 - CEREBRAL INFARCTION, UNSPECIFIED Qualifiers: CVA mechanism: thrombosis Precerebral and cerebral artery: middle cerebral artery, left (7) Diabetes mellitus Code(s): E11.9 - TYPE 2 DIABETES MELLITUS WITHOUT COMPLICATIONS Qualifiers: Diabetes mellitus type: type 2 Diabetes mellitus complication status: without complication Diabetes mellitus intermediate manager insulin use: without intermediate manager use Qualified Code(s): E11.9 - Type 2 diabetes mellitus without complications (8) Seizure Code(s): R56.9 - UNSPECIFIED CONVULSIONS (9) Endotracheally intubated Code(s): Z97.8 - PRESENCE OF OTHER SPECIFIED DEVICES Assessment/Plan DNR NOW FAMILY BEDSIDE RESP SUPPORT WITH MECH VENT SEIZURE PRECAUTIONS POOR OVER ALL PROGNOSIS
[2017-06-16] MEDS: MAGNESIUM OXIDE 400 MG TABLET (FP) PO SCH (21:35)
[2017-06-16] MEDS: ATORVASTATIN CA 20 MG TABLET (FP) PO SCH (21:35)
[2017-06-16] MEDS: PROPOFOL 100 ML IVPB SCH (21:35)
[2017-06-17] MEDS: ACETAMINOPHEN 650 MG/20.3 ML ORAL SOLUTION (CUPS) PO PRN (03:33)
[2017-06-17] MEDS: PHENYTOIN SODIUM 100 MG/2 ML VIAL IVPB SCH ×2 (05:13→15:10)
[2017-06-17] MEDS: LEVOTHYROXINE NA 50 MCG TABLET (FP) PO SCH (06:47)
[2017-06-17] MEDS ORDERED: PT OWN MED DRAWER 7, Y5N ONE (08:51)
[2017-06-17] MEDS: VALPROATE SODIUM 500 MG/5 ML VIAL IV SCH (09:18)
[2017-06-17] MEDS: TOPIRAMATE 100 MG TABLET PO SCH (09:18)
[2017-06-17] MEDS: levETIRAcetam 500 MG/5 ML INJECTION VIAL IVPB SCH (09:19)
--- NOTE | 2017-06-17 09:59 | PN ---
Progress Note (short form) - Note Progress Note: Patient seen and examined this am. Unchnaged status. Presently DNR/DNI/comfort care O/E: General: Intubated sedated, unresponsive. Eyes closed Cor: tachycardic Lungs: rhoncourous anterios auscultation Abd: Soft Ext:cold, on SCDs Last Vital Signs Temp Pulse Resp BP Pulse Ox 97.2 F L 131 H 28 H 101/69 98 06/17/17 08:00 06/17/17 08:00 06/17/17 08:00 06/17/17 08:00 06/16/17 20:00 Current Medications Generic Name Dose Route Start Last Admin Trade Name Freq PRN Reason Stop Dose Admin Acetaminophen 650 mg 06/10/17 16:00 06/15/17 12:02 Tylenol - PO 650 mg Q4H PRN Administration FEVER OR PAIN Acetaminophen 650 mg 06/13/17 23:12 06/17/17 03:33 Tylenol Oral Solution - PO 650 mg Q6H PRN Administration FEVER OR PAIN Atorvastatin Calcium 20 mg 06/10/17 22:00 06/16/17 21:35 Lipitor - PO 20 mg HS [facility] Administration Propofol 100 mls @ 4.853 mls/hr 06/13/17 22:00 06/16/17 21:35 Diprivan - IVPB Not Given TITR [facility] Protocol 10 MCG/KG/MIN Pantoprazole Sodium 40 mg/ 100 mls @ 200 mls/hr 06/14/17 10:00 06/16/17 09:55 Sodium Chloride IVPB 200 mls/hr DAILY [facility] Administration Levetiracetam 1,250 mg 06/13/17 22:00 06/17/17 09:19 Keppra Injection - IVPB 1,250 mg BID [facility] Administration Levothyroxine Sodium 50 mcg 06/11/17 07:00 06/17/17 06:47 Synthroid - PO 50 mcg DAILY@0700 [facility] Administration Magnesium Oxide 800 mg 06/10/17 22:00 06/16/17 21:35 Mag-Ox - PO 800 mg HS [facility] Administration Metoprolol Tartrate 5 mg 06/12/17 16:19 06/15/17 00:32 Lopressor Injection - IVPUSH 5 mg Q8H PRN Administration Metoprolol Tartrate 10 mg 06/12/17 16:20 06/12/17 11:20 Lopressor Injection - IVPUSH 10 mg Q8H PRN Administration Phenytoin Sodium 100 mg 06/14/17 06:00 06/17/17 05:13 Dilantin Injection - IVPB 100 mg TID [facility] Administration Topiramate 100 mg 06/15/17 11:00 06/17/17 09:18 Topamax - PO 100 mg BID [facility] Administration Valproate Sodium 1,000 mg 06/14/17 20:30 06/17/17 09:18 Depacon Injection - IV 1,000 mg BID [facility] Administration Assessment/Plan: Ms. Styles is a 71 year old patient with HTN, DM, CAD, Afib on coumadin, h/o CVA, was admitted with subdural hematoma s/p evacuation On admission, she received 4u ffp/vit. k for inr >4, and her INR was corrected prior to the evacuation comfort care,for terminal extubation per ICU discussion with family. Problem List - Problems (1) Subdural hematoma Code(s): I62.00 - NONTRAUMATIC SUBDURAL HEMORRHAGE, UNSPECIFIED (2) Atrial fibrillation Code(s): I48.91 - UNSPECIFIED ATRIAL FIBRILLATION Qualifiers: Atrial fibrillation type: persistent Qualified Code(s): I48.1 - Persistent atrial fibrillation (3) Anemia Code(s): D64.9 - ANEMIA, UNSPECIFIED (4) Cerebrovascular accident (CVA) Code(s): I63.9 - CEREBRAL INFARCTION, UNSPECIFIED Qualifiers: CVA mechanism: thrombosis Precerebral and cerebral artery: middle cerebral artery, left (5) CAD (coronary artery disease) Code(s): I25.10 - ATHSCL HEART DISEASE OF [place] CORONARY ARTERY W/O ANG PCTRS Qualifiers: Coronary Disease-Associated Artery/Lesion type: [place] artery [place] vs. transplanted heart: [place] heart Associated angina: without angina Qualified Code(s): I25.10 - Atherosclerotic heart disease of [place] coronary artery without angina pectoris
[2017-06-17 10:08] VITALS: TEMP 96.4
--- NOTE | 2017-06-17 10:25 | PN ---
Progress Note (short form) - Note Progress Note: Neurology History of Present Illness The patient is a 71 year old female, with a significant past medical history of Asthma, CVA (minimal R sided weakness), partial seizures, Atrial Fibrillation ( on Coumadin), CAD, HTN, HLD, Diabetes and Hypothyroidism, who presented to the emergency department for abnormal CT head findings. Apparently, the patient had suffered head trauma approximately 2 weeks prior to admission while fixing a folding chair and denied hitting her head again. 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 NSGY , Dr. Ramirez consulted, and completed surgical intervention with craniotomy and evacuation with patient placed in ICU under close monitoring. On 06/12, patient had a seizure in the ICU with L facial twitching, was already on Keppra 750mg twice daily, recommended increase to 1000mg twice daily. EEG also ordered, however due to surgical craniatomy, tech not able to complete. Had recurrent episodic seizures that were treated with Ativan. Keppra gradually increased to 1250mg twice daily. Phenytoin and Depakene added as well as patient with recurring seizures evening of 06/13. MRI brain completed and reviewed, DWI and ADC sequence show ischemic region juxaposed to location of R subdural hematoma but with active blood products there was concern regarding bleeding and NSGY involved and open to AC if needed. Family hesitant given risk and AC plan on hold for now. MRA showed stenosis of L ICA, mild to moderate given motion artifact. MCA branches with mass effect from SDH. Patient also with respiratory decompensation night of 06/13 and required intubation and mechanical ventilation. Patient with refractory seizures. Has been having recurrent seizures but now stabilized with addition of Topamax 100mg twice daily in addition to Depakene 1000mg twice daily added in addition to Phenytoin 100mg three times daily as well as the Keppra 1250mg twice daily. Likely 2/2 to cerebral irritation from blood product/surgical intervention. No significant neurologic improvement in function or cognition. Being considered for compassionate extubation today. Family aware of poor prognosis. Active Medications Acetaminophen (Tylenol -) 650 mg PO Q4H PRN PRN Reason: FEVER OR PAIN Last Admin: 06/15/17 12:02 Dose: 650 mg Acetaminophen (Tylenol Oral Solution -) 650 mg PO Q6H PRN PRN Reason: FEVER OR PAIN Last Admin: 06/17/17 03:33 Dose: 650 mg Atorvastatin Calcium (Lipitor -) [address] [facility] Last Admin: 06/16/17 21:35 Dose: 20 mg Propofol (Diprivan -) 100 mls @ 4.853 mls/hr IVPB TITR [facility]; 10 MCG/KG/MIN PRN Reason: Protocol Last Admin: 06/16/17 21:35 Dose: Not Given Pantoprazole Sodium 40 mg/ (Sodium Chloride) 100 mls @ 200 mls/hr IVPB DAILY [facility] Last Admin: 06/16/17 09:55 Dose: 200 mls/hr Levetiracetam (Keppra Injection -) 1,[address] [facility] Last Admin: 06/17/17 09:19 Dose: 1,250 mg Levothyroxine Sodium (Synthroid -) 50 mcg PO DAILY@0700 [facility] Last Admin: 06/17/17 06:47 Dose: 50 mcg Magnesium Oxide (Mag-Ox -) [address] [facility] Last Admin: 06/16/17 21:35 Dose: 800 mg Metoprolol Tartrate (Lopressor Injection -) 5 mg IVPUSH Q8H PRN Last Admin: 06/15/17 00:32 Dose: 5 mg Metoprolol Tartrate (Lopressor Injection -) 10 mg IVPUSH Q8H PRN Last Admin: 06/12/17 11:20 Dose: 10 mg Phenytoin Sodium (Dilantin Injection -) [address] [facility] Last Admin: 06/17/17 05:13 Dose: 100 mg Topiramate (Topamax -) [address] [facility] Last Admin: 06/17/17 09:18 Dose: 100 mg Valproate Sodium (Depacon Injection -) 1,[address] [facility] Last Admin: 06/17/17 09:18 Dose: 1,000 mg *Physical Exam Vital Signs Temperature 96.4 F L 06/17/17 10:00 Pulse Rate 120 H 06/17/17 10:00 Respiratory Rate 18 06/17/17 10:00 Blood Pressure 90/63 06/17/17 10:00 O2 Sat by Pulse Oximetry (%) 98 06/16/17 20:00 GENERAL: The patient is sedated, on Propofol, intubated and on mechanical ventilation HEAD: S/P surgical intervention EYES: Pupils equal, round and reactive to light, extraocular movements intact, sclera anicteric, conjunctiva clear with no pallor. ENT: Ears normal, nares patent, oropharynx clear without exudates. Moist mucous membranes. LUNGS: Breath sounds equal, clear to auscultation bilaterally. No wheeze/ crackles. HEART: Regular rate and rhythm, normal S1 and S2 without murmur or rub. ABDOMEN: Soft/nontender/nondistended. BS wnl. No guarding or rebound. No palpable masses. No hepatosplenomegaly. EXTREMITIES: No edema. No clubbing or cyanosis. No cords, erythema, or tenderness. NEUROLOGICAL: Limited exam, Cranial nerves II through XII grossly intact, not able to participate in testing, unclear exam strength, responds to pain, Babinski positive b/l SKIN: Warm, Dry, normal turgor, no rashes or lesions noted. CBCD WBC 13.3 K/mm3 (4.0-10.0) H 06/15/17 09:59 RBC 4.08 M/mm3 (3.60-5.2) 06/15/17 09:59 Hgb 10.5 GM/dL (10.7-15.3) L 06/15/17 09:59 Hct 32.5 % (32.4-45.2) 06/15/17 09:59 MCV 79.7 fl (80-96) L 06/15/17 09:59 MCHC 32.2 g/dl (32.0-36.0) 06/15/17 09:59 RDW 15.5 % (11.6-15.6) 06/15/17 09:59 Plt Count 230 K/MM3 (134-434) 06/15/17 09:59 MPV 7.9 fl (7.5-11.1) 06/15/17 09:59 CMP Sodium 141 mmol/L (136-145) 06/15/17 09:59 Potassium 3.5 mmol/L (3.5-5.1) 06/15/17 09:59 Chloride 101 mmol/L (98-107) 06/15/17 09:59 Carbon Dioxide 27 mmol/L (21-32) 06/15/17 09:59 Anion Gap 13 (8-16) 06/15/17 09:59 BUN 16 mg/dL (7-18) D 06/15/17 09:59 Creatinine 0.9 mg/dL (0.55-1.02) 06/15/17 09:59 Creat Clearance w eGFR > 60 (>60) 06/15/17 09:59 Calcium 8.9 mg/dL (8.5-10.1) 06/15/17 09:59 Total Bilirubin 0.9 mg/dL (0.2-1.0) 06/15/17 09:59 AST 18 U/L (15-37) 06/15/17 09:59 ALT 18 U/L (12-78) 06/15/17 09:59 Alkaline Phosphatase 122 U/L (45-117) H 06/15/17 09:59 Total Protein 7.0 g/dl (6.4-8.2) 06/15/17 09:59 Albumin 2.8 g/dl (3.4-5.0) L 06/15/17 09:59 - RADIOLOGY CT head reviewed MRI brain reviewed Plan: 71 year old female, with a significant past medical history of Asthma, CVA ( minimal R sided weakness), partial seizures, Atrial Fibrillation (on Coumadin), CAD, HTN, HLD, Diabetes and Hypothyroidism, who presented to the emergency department for abnormal CT head findings. Apparently, the patient had suffered head trauma approximately 2 weeks prior to admission while fixing a folding chair and denied hitting her head again. 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 NSGY, Dr. Ramirez consulted, and completed surgical intervention with craniotomy and evacuation. On 06/12, I was consulted as the patient had a seizure in the ICU with L facial twitching. I had spoke to the resident. She was already on Keppra 750mg twice daily, recommended increase to 1000mg twice daily. EEG also ordered , however due to surgical craniatomy, tech not able to complete. Sedated, intubated, on mechanical ventilation at this time -MRI brain reviewed, acute ishemic changes in R parietal/temporal region -MRA reviewed with stenosis mild to moderate of L ICA, MCA branches with edematous mass effect -Seizure now stabilized on regiment of Keppra 1250bid, Phenytoin at 100mg TID, and Depekene at 1000mg twice a day, topamax 100mg twice daily resolved seizures -Tight Blood pressure control, avoid hypertensive episodes -Afib, rate control -Strict avoidance of head trauma -DVT ppx -Being considered for compassionate extubation -Critical care time 35 mins
[2017-06-17] MEDS ORDERED: MORPHINE 100 MG in SODIUM CHLORIDE 98 ML IVPB SCH (11:15)
[2017-06-17] MEDS ORDERED: LORazepam 2 MG/ML SDV VIAL ONE (11:33)
[2017-06-17] MEDS ORDERED: morphine CARPU-JECT 4 MG/1 ML DISP.SYRIN IVPUSH ONE (11:45)
[2017-06-17] MEDS: LORazepam 2 MG/ML SDV VIAL IVPUSH PRN ×2 (11:46→18:39)
[2017-06-17] MEDS ORDERED: LORazepam 2 MG/ML SDV VIAL IVPUSH ONE (11:52)
--- NOTE | 2017-06-17 13:35 | PN ---
Progress Note, Physician Chief Complaint: PATIENT INTUBATED SEDATED SCHEDULED FOR COMPASSIONATE EXTUBATION/WEAN - Current Medication List Current Medications: Active Medications Acetaminophen (Tylenol -) 650 mg PO Q4H PRN PRN Reason: FEVER OR PAIN Last Admin: 06/15/17 12:02 Dose: 650 mg Acetaminophen (Tylenol Oral Solution -) 650 mg PO Q6H PRN PRN Reason: FEVER OR PAIN Last Admin: 06/17/17 03:33 Dose: 650 mg Atorvastatin Calcium (Lipitor -) 20 mg PO [facility] Last Admin: 06/16/17 21:35 Dose: 20 mg Pantoprazole Sodium 40 mg/ (Sodium Chloride) 100 mls @ 200 mls/hr IVPB DAILY [facility] Last Admin: 06/16/17 09:55 Dose: 200 mls/hr Morphine Sulfate 100 mg/ (Sodium Chloride) 100 mls @ 4 mls/hr IVPB TITR [facility]; 4 MG/HR PRN Reason: Protocol Stop: 06/18/17 11:14 Last Admin: 06/17/17 11:49 Dose: 4 mls/hr Levetiracetam (Keppra Injection -) 1,250 mg IVPB BID [facility] Last Admin: 06/17/17 09:19 Dose: 1,250 mg Levothyroxine Sodium (Synthroid -) 50 mcg PO DAILY@0700 [facility] Last Admin: 06/17/17 06:47 Dose: 50 mcg Lorazepam (Ativan Injection -) 1 mg IVPUSH Q2H PRN PRN Reason: AGITATION Stop: 06/18/17 11:16 Last Admin: 06/17/17 11:46 Dose: 1 mg Magnesium Oxide (Mag-Ox -) 800 mg PO [facility] Last Admin: 06/16/17 21:35 Dose: 800 mg Metoprolol Tartrate (Lopressor Injection -) 5 mg IVPUSH Q8H PRN Last Admin: 06/15/17 00:32 Dose: 5 mg Metoprolol Tartrate (Lopressor Injection -) 10 mg IVPUSH Q8H PRN Last Admin: 06/12/17 11:20 Dose: 10 mg Phenytoin Sodium (Dilantin Injection -) 100 mg IVPB TID [facility] Last Admin: 06/17/17 05:13 Dose: 100 mg Topiramate (Topamax -) 100 mg PO BID [facility] Last Admin: 06/17/17 09:18 Dose: 100 mg Valproate Sodium (Depacon Injection -) 1,000 mg IV BID [facility] Last Admin: 06/17/17 09:18 Dose: 1,000 mg - Objective Vital Signs: Vital Signs Temperature 96.4 F L 06/17/17 11:46 Pulse Rate 120 H 06/17/17 10:00 Respiratory Rate 18 06/17/17 10:00 Blood Pressure 90/63 06/17/17 10:00 O2 Sat by Pulse Oximetry (%) 98 06/16/17 20:00 Constitutional: Yes: Severe Distress Eyes: Yes: Other HENT: Yes: Other Neck: Yes: WNL Cardiovascular: Yes: Tachycardia Respiratory: Yes: Mechanically Ventilated Gastrointestinal: Yes: Other Genitourinary: Yes: Jorge Luis Present Musculoskeletal: Yes: Muscle Weakness Edema: Yes Wound/Incision: Yes: Dressing Dry and Intact Neurological: Yes: Pre-Existing Deficit, Unresponsive ...Motor Strength: LLE, RLE Labs: CBC, BMP 06/15/17 09:59 06/15/17 09:59 INR, PTT INR 1.88 (0.82-1.09) H D 06/16/17 10:30 Problem List - Problems (1) Atrial fibrillation Code(s): I48.91 - UNSPECIFIED ATRIAL FIBRILLATION Qualifiers: Atrial fibrillation type: persistent Qualified Code(s): I48.1 - Persistent atrial fibrillation (2) Heart palpitations Code(s): R00.2 - PALPITATIONS (3) Subdural hematoma Code(s): I62.00 - NONTRAUMATIC SUBDURAL HEMORRHAGE, UNSPECIFIED (4) Supratherapeutic INR Code(s): R79.1 - ABNORMAL COAGULATION PROFILE (5) Asthma Code(s): J45.909 - UNSPECIFIED ASTHMA, UNCOMPLICATED (6) Cerebrovascular accident (CVA) Code(s): I63.9 - CEREBRAL INFARCTION, UNSPECIFIED Qualifiers: CVA mechanism: thrombosis Precerebral and cerebral artery: middle cerebral artery, left (7) Diabetes mellitus Code(s): E11.9 - TYPE 2 DIABETES MELLITUS WITHOUT COMPLICATIONS Qualifiers: Diabetes mellitus type: type 2 Diabetes mellitus complication status: without complication Diabetes mellitus fpc insulin use: without body mechanic use Qualified Code(s): E11.9 - Type 2 diabetes mellitus without complications (8) Seizure Code(s): R56.9 - UNSPECIFIED CONVULSIONS (9) Endotracheally intubated Code(s): Z97.8 - PRESENCE OF OTHER SPECIFIED DEVICES Assessment/Plan COMPASSIONATE WEAN/EXTUBATION FAMILY SIGNED DNR/DNI FORM PALLIATIVE CARE TEAM ON BOARD AND IN DISCUSSION WITH FAMILY
--- NOTE | 2017-06-17 14:48 | PN ---
Teaching Attending Note Name of Resident: Corrine Santiago ATTENDING PHYSICIAN STATEMENT I saw and evaluated the patient. I reviewed the resident's note and discussed the case with the resident. I agree with the resident's findings and plan as documented. SUBJECTIVE: Pt seen and examined in the ICU. Events noted, pt compassionately extubated on morphine gtt. OBJECTIVE: Last Vital Signs Temp Pulse Resp BP Pulse Ox 96.4 F L 137 H 16 90/63 98 06/17/17 11:46 06/17/17 13:00 06/17/17 13:00 06/17/17 10:00 06/16/17 20:00 Intake & Output 06/14/17 06/15/17 06/16/17 06/17/17 23:59 23:59 23:59 23:59 Intake Total 1225.9 1385 1133 174 Output Total 1100 1500 250 400 Balance 125.9 -115 883 -226 Weight 183 lb 6.4 oz 182 lb 3 oz 180 lb 5 oz 180 lb 4 oz Gen: extubated, sedated Heart: tachycardic, irregular Lung: scattered rhonchi Abd: soft, nontender Ext: + edema CBC, BMP 06/15/17 09:59 06/15/17 09:59 Active Medications Acetaminophen (Tylenol -) 650 mg PO Q4H PRN PRN Reason: FEVER OR PAIN Last Admin: 06/15/17 12:02 Dose: 650 mg Acetaminophen (Tylenol Oral Solution -) 650 mg PO Q6H PRN PRN Reason: FEVER OR PAIN Last Admin: 06/17/17 03:33 Dose: 650 mg Morphine Sulfate 100 mg/ (Sodium Chloride) 100 mls @ 4 mls/hr IVPB TITR [facility]; 4 MG/HR PRN Reason: Protocol Stop: 06/18/17 11:14 Last Admin: 06/17/17 11:49 Dose: 4 mls/hr Levetiracetam (Keppra Injection -) 1,250 mg IVPB BID [facility] Last Admin: 06/17/17 09:19 Dose: 1,250 mg Lorazepam (Ativan Injection -) 1 mg IVPUSH Q2H PRN PRN Reason: AGITATION Stop: 06/18/17 11:16 Last Admin: 06/17/17 11:46 Dose: 1 mg Phenytoin Sodium (Dilantin Injection -) 100 mg IVPB TID [facility] Last Admin: 06/17/17 05:13 Dose: 100 mg Topiramate (Topamax -) 100 mg PO BID [facility] Last Admin: 06/17/17 09:18 Dose: 100 mg Valproate Sodium (Depacon Injection -) 1,000 mg IV BID [facility] Last Admin: 06/17/17 09:18 Dose: 1,000 mg ASSESSMENT AND PLAN: Subdural Hematoma s/p Craniotomy/Hematoma Evacuation Atrial Fibrillation Acute CVA Seizures HTN DM CAD Hypothyroidism Asthma - continue supportive measures - titrate morphine gtt to keep RR <25 - benzos prn, antiepileptics - family support
--- NOTE | 2017-06-17 14:59 | PN ---
Physical Exam: SUBJECTIVE: Patient seen and examined in ICU. Compassionately extubated on morphine gtt OBJECTIVE: Vital Signs Period Temp Pulse Resp BP Sys/Becerra Pulse Ox Last 24 Hr 96.4 F-98.8 F 114-143 14-28 85-122/54-83 98 Intake & Output 06/14/17 06/15/17 06/16/17 06/17/17 23:59 23:59 23:59 23:59 Intake Total 1225.9 1385 1133 174 Output Total 1100 1500 250 400 Balance 125.9 -115 883 -226 Weight 83.189 kg 82.639 kg 81.788 kg 81.76 kg GENERAL: extubated, sedated LUNGS: scattered rhonchi HEART: tachycardic, irregular, no murmur, rub or gallop. ABDOMEN: Soft, ntnd EXTREMITIES: 2+ pulses, warm, well-perfused, no edema. Active Medications Acetaminophen (Tylenol -) 650 mg PO Q4H PRN PRN Reason: FEVER OR PAIN Last Admin: 06/15/17 12:02 Dose: 650 mg Acetaminophen (Tylenol Oral Solution -) 650 mg PO Q6H PRN PRN Reason: FEVER OR PAIN Last Admin: 06/17/17 03:33 Dose: 650 mg Morphine Sulfate 100 mg/ (Sodium Chloride) 100 mls @ 4 mls/hr IVPB TITR [facility]; 4 MG/HR PRN Reason: Protocol Stop: 06/18/17 11:14 Last Admin: 06/17/17 11:49 Dose: 4 mls/hr Levetiracetam (Keppra Injection -) 1,250 mg IVPB BID [facility] Last Admin: 06/17/17 09:19 Dose: 1,250 mg Lorazepam (Ativan Injection -) 1 mg IVPUSH Q2H PRN PRN Reason: AGITATION Stop: 06/18/17 11:16 Last Admin: 06/17/17 11:46 Dose: 1 mg Phenytoin Sodium (Dilantin Injection -) 100 mg IVPB TID [facility] Last Admin: 06/17/17 05:13 Dose: 100 mg Topiramate (Topamax -) 100 mg PO BID [facility] Last Admin: 06/17/17 09:18 Dose: 100 mg Valproate Sodium (Depacon Injection -) 1,000 mg IV BID [facility] Last Admin: 06/17/17 09:18 Dose: 1,000 mg ASSESSMENT/PLAN: 71yo woman with PMH of HTN, CAD, DM, hypothyroidism, asthma, Afib, CVA ( residual R sided weakness) c/b seizures, SDH s/p R craniotomy/evacuation who remains intubated, unresponsive with poor prognosis, and is now comfort care. Patient compassionately extubated this morning with family at bedside along with Palliative and Pastoral care. -Propofol gtt d/c -Started Morphine gtt at 4mg/hr, titrate to RR<25 -Morphine 4mg IVPUSH ONCE -Ativan 1mg IVPUSH Q2H for seizure/agitation -Continue AEDs -Continue Kang d/w with Dr. David Santiago MD PGY-1 Visit type - Emergency Visit Emergency Visit: No - New Patient This patient is new to me today: No - Critical Care Critical Care patient: No Total Critical Care Time (in minutes): 35 Critical Care Statement: The care of this patient involved high complexity decision making to prevent further life threatening deterioration of the patient 's condition and/or to evaluate & treat vital organ system(s) failure or risk of failure.
[2017-06-17 15:44] VITALS: BP 163/146
[2017-06-17 17:33] VITALS: PULSE 147
--- NOTE | 2017-06-17 19:37 | HOSP ---
Subjective - Review of Symptoms Events since last encounter: I was called to see patient for unresponsiveness. On exam the patient did not respond to verbal or physical stimuli, and no spontaneous movement was observed. Absent heart and breath sounds for more than 1 minute. Absent peripheral pulses. Pupils were fixed and dilated, corneal reflex was absent. Patient pronounced at 19:17. PCP was notified. Next of kin, family members were notified. Physical Examination Vital Signs: Vital Signs Temperature 96.4 F L 06/17/17 11:46 Pulse Rate 147 H 06/17/17 17:00 Respiratory Rate 27 H 06/17/17 17:00 Blood Pressure 163/146 06/17/17 15:00 O2 Sat by Pulse Oximetry (%) 98 06/16/17 20:00 Labs: CBC, BMP 06/15/17 09:59 06/15/17 09:59
--- NOTE | 2017-06-17 21:03 | HOSP ---
Subjective - Review of Symptoms Events since last encounter: I was called to see patient for unresponsiveness. On exam the patient did not respond to verbal or physical stimuli, and no spontaneous movement was observed. Absent heart and breath sounds for more than 1 minute. Absent peripheral pulses. Pupils were fixed and dilated, corneal reflex was absent. Patient pronounced at 19:17. PCP was notified. Next of kin, family members were notified. Physical Examination Vital Signs: Vital Signs Temperature 96.4 F L 06/17/17 11:46 Pulse Rate 147 H 06/17/17 17:00 Respiratory Rate 27 H 06/17/17 17:00 Blood Pressure 163/146 06/17/17 15:00 O2 Sat by Pulse Oximetry (%) 98 06/16/17 20:00 Labs: CBC, BMP 06/15/17 09:59 06/15/17 09:59 Visit type - Emergency Visit Emergency Visit: No - New Patient This patient is new to me today: No - Critical Care Critical Care patient: Yes Total Critical Care Time (in minutes): 10
== END 2017-06-17 19:17 | disposition expired | DRG 25 ==
LOC: JER 16:20 → JERBED 18:55 → JICU 20:26
PROVIDERS: ADMIT Family Medicine; ATTEND Family Medicine
PROC: 30233K1 Transfusion of Nonautologous Frozen Plasma into Peripheral Vein, Percutaneous Approach (ICD-10-PCS; 2017-06-09)
PROC: 00C40ZZ Extirpation of Matter from Intracranial Subdural Space, Open Approach (ICD-10-PCS; principal; 2017-06-10 09:30)
PROC: 0BH17EZ Insertion of Endotracheal Airway into Trachea, Via Natural or Artificial Opening (ICD-10-PCS; 2017-06-13)
PROC: 5A1945Z Respiratory Ventilation, 24-96 Consecutive Hours (ICD-10-PCS; 2017-06-13)
PROC: 0BP1XDZ Removal of Intraluminal Device from Trachea, External Approach (ICD-10-PCS; 2017-06-17)
DX: S06.5X0A Traumatic subdural hemorrhage without loss of consciousness, initial encounter (principal); S06.1X0A Traumatic cerebral edema without loss of consciousness, initial encounter; J96.00 Acute respiratory failure, unspecified whether with hypoxia or hypercapnia; I69.351 Hemiplegia and hemiparesis following cerebral infarction affecting right dominant side; D68.69 Other thrombophilia; N17.9 Acute kidney failure, unspecified; I25.110 Atherosclerotic heart disease of native coronary artery with unstable angina pectoris; J45.909 Unspecified asthma, uncomplicated; E78.5 Hyperlipidemia, unspecified; E11.9 Type 2 diabetes mellitus without complications; R79.1 Abnormal coagulation profile; R00.2 Palpitations; I48.2 Chronic atrial fibrillation; E83.42 Hypomagnesemia; D50.8 Other iron deficiency anemias; I11.9 Hypertensive heart disease without heart failure; Y93.89 Activity, other specified; Z79.01 Long term (current) use of anticoagulants; Z66 Do not resuscitate; X58.XXXA Exposure to other specified factors, initial encounter; Y92.098 Other place in other non-institutional residence as the place of occurrence of the external cause
CPT/HCPCS: 36415; 36430; 36600; 70450-TC; 70546-TC; 70553-TC; 71010-TC; 80048; 80053; 80185; 82803; 83735; 84100; 84484; 85025; 85027; 85610; 85730; 86850; 86900; 86901; 87040; 87086; 93005; 93010; 94002; 94640; 97116-GP; 97162-GP; 99285-25; A9576; P9017